=== PATIENT | female | born 1950 | race Caucasian/White ===

== ENCOUNTER → 2019-11-11 08:24 | Outpatient (BNVA) | payer MEDICARE, SELFPAY | PROVIDERS: PCP Internal Medicine; Visit Provider Orthopaedic Surgery | DX: Z76.89 Persons encountering health services in other specified circumstances (principal) ==

== ENCOUNTER 2019-11-15 07:11 | Outpatient (REF) | payer MEDICARE, SELFPAY ==
--- NOTE | 2019-11-15 08:04 | ECG_ITS ---
Test Reason : ANESTHESIA KNEE REPL Blood Pressure : / mmHG Vent. Rate : 089 BPM Atrial Rate : 089 BPM P-R Int : 110 ms QRS Dur : 072 ms QT Int : 346 ms P-R-T Axes : 045 042 030 degrees QTc Int : 420 ms Sinus rhythm with short NE Possible Right atrial enlargement Otherwise normal ECG No previous ECGs available Referred By: Krys Trujillo Electronically Signed By:JULISSA HERR MD
[2019-11-15 08:56] LABS: MANUAL DIFF FLAG NO
[2019-11-15 09:03] LABS: Basophils Percent Auto 0.2 % (0-2); Eosinophils Absolute Auto 0.2 X10*3/uL (0.0-0.4); Eosinophils Percent Auto 1.9 % (0-4); Hematocrit 40.7 % (37-47); Imm Gran Abs Auto 0.03 X10*3/uL (0.00-0.03); Imm Gran Pct Auto 0.3 % (0.0-0.4); Lymphocytes Absolute Auto 1.8 X10*3/uL (1.2-4.9); Lymphocytes Percent Auto 20.2 % (20-40); Mean Corpuscular HGB Conc 31.9 g/dl (31.0-35.0); Mean Corpuscular Hemoglobin 29.3 pg (27.0-33.0); Mean Corpuscular Volume 91.7 fL (80-98); Mean Platelet Volume 12.5 fL (9.4-12.3); Monocytes Absolute Auto 0.7 X10*3/uL (0.1-1.2); Monocytes Percent Auto 7.9 % (2-11); Neutrophils Absolute Auto 6.3 X10*3/uL (2.0-8.3); Neutrophils Percent Auto 69.5 % (45-73); Platelet Count 263 X10*3/uL (160-400); Red Blood Count 4.44 X10*6/uL (4.20-5.50); Red Cell Distribution Width 12.5 % (11.0-16.0)
[2019-11-15 09:26] LABS: Anion Gap 14 (12-20); Blood Urea Nitrogen 22 mg/dL (9-16); Calcium 9.4 mg/dL (8.4-10.2); Carbon Dioxide 30 mmol/L (22-29); Chloride 100 mmol/L (96-108); Estimated Glomerular Filt Rate > 60; Glucose Random 89 mg/dL (60-115); Potassium 3.6 mmol/l (3.3-5.1); Sodium 140 mmol/L (135-145)
== END 2019-11-15 07:12 | disposition home or self-care (01) ==
LOC: HO.LAB 07:11
PROVIDERS: PCP Internal Medicine; Visit Provider Physician Assistant
DX: Z01.810 Encounter for preprocedural cardiovascular examination (principal); Z01.812 Encounter for preprocedural laboratory examination
CPT/HCPCS: 36415; 80048; 85025; 93005

== ENCOUNTER 2019-11-29 10:26 | Outpatient (REF) | payer MEDICARE, SELFPAY | END 2019-11-29 10:27 | disposition home or self-care (01) | LOC: HO.LAB 10:26 | PROVIDERS: PCP Internal Medicine; Visit Provider Physician Assistant | DX: Z01.818 Encounter for other preprocedural examination (principal); M17.12 Unilateral primary osteoarthritis, left knee; Z01.83 Encounter for blood typing | CPT/HCPCS: 87641 ==

== ENCOUNTER 2019-12-06 10:48 | Outpatient (REF) | payer MEDICARE, SELFPAY | END 2019-12-06 10:49 | disposition home or self-care (01) | LOC: HO.LAB 10:48 | PROVIDERS: PCP Internal Medicine; Visit Provider Physician Assistant | DX: Z01.818 Encounter for other preprocedural examination (principal); M17.12 Unilateral primary osteoarthritis, left knee | CPT/HCPCS: 99212 ==

== ENCOUNTER 2019-12-11 05:59 | Inpatient (IN) | payer MEDICARE, SELFPAY ==
[2019-11-27 12:01] VITALS: BP 183/82; PULSE 92; RESP 16; O2SAT 98; BMI 33.0
--- NOTE | 2019-11-27 12:25 | P.CONAN_ITS ---
Documented by User: Marlyn Westbrook 12/10/19 13:54 HPI - Anesthesia Eval Consult details Narrative: 68yo F for L TKA PCP cleared [facility] Past Medical History Medical History Glaucoma High cholesterol HTN (hypertension) Osteoarthritis of left knee Family History Family History Father No problems noted. Mother No problems noted. Sister Colon cancer Sister No problems noted. Brother No problems noted. Brother No problems noted. Son No problems noted. Daughter No problems noted. Family history of problems with anesthesia: No Surgical History History of Problems with Anesthesia: No (Never received anesthesia) Social History Social History Are you a primary patient care provider to a significant other at home: No Do you presently have visiting nurse or other home services: No Smoking Status: Former smoker Smoking Quit Date: Second Hand Smoke Exposure: No Use of substances other than those prescribed or required for medical reasons: No Have you been hit, kicked, punched, or otherwise hurt by someone within the past year? If so, by whom?: No Spiritual Healthcare Practices: none Christian Healthcare Practices: none Cultural Healthcare Practices: none Advance Directives: No Advance Directives Information Provided: No Advance Directives on File: No Recently lost weight without trying: No Meds Allergies Allergy/AdvReac Type Severity Reaction Status Date / Time skin prep Allergy Hives Uncoded 11/27/19 13:35 Home Medications Medication Instructions Recorded Confirmed Type latanoprost 0.005 % eye drops 1 drp OPHTHALMIC (EYE) DAILY 11/04/19 12/11/19 History simvastatin 40 mg tablet 40 mg PO BEDTIME 11/04/19 11/27/19 History betaxolol [Betoptic S] 1 drp OPHTHALMIC (EYE) DAILY 11/27/19 11/27/19 History cholecalciferol (vitamin D3) 25 mcg PO DAILY 11/27/19 11/27/19 History [Vitamin D3] valsartan-hydrochlorothiazide 1 tab PO DAILY 11/27/19 11/27/19 History Exam Exam Date and Time: November 27, 2019 1225 Height,Weight and Vital Signs: Height 5 ft Weight 76.7 kg Last Vital Signs Pulse 92 11/27/19 12:01 Resp 16 11/27/19 12:01 BP 183/82 H 11/27/19 12:01 Pulse Ox 98 11/27/19 12:01 Pertinent Lab Results Pertinent Lab Results: Laboratory Tests 11/15/19 11/15/19 07:30 07:30 WBC 9.0 Hgb 13.0 Hct 40.7 Plt Count 263 Sodium 140 Potassium 3.6 Chloride 100 Carbon Dioxide 30 H BUN 22 H Creatinine 0.69 Estimated GFR > 60 Narrative Narrative: EKG 11/15/19: SR@89, short NE, ?DEIDRA Airway Mallampati Class: I TM Dist: >3cm Neck ROM: Full Loose/Missing/Broken Teeth: Yes (Molars missing) Heart: RRR Lungs: CTAB Assessment and Plan Assessment Anesthesia Assessment: Anesthesia Plan Discussed and PAT Visit Documented by User: Katya Whelan 12/11/19 07:17 [facility] Past Medical History Medical History Glaucoma High cholesterol HTN (hypertension) Osteoarthritis of left knee Family History Family History Father No problems noted. Mother No problems noted. Sister Colon cancer Sister No problems noted. Brother No problems noted. Brother No problems noted. Son No problems noted. Daughter No problems noted. Social History Social History Are you a primary patient care provider to a significant other at home: No Do you presently have visiting nurse or other home services: No Smoking Status: Former smoker Smoking Quit Date: Second Hand Smoke Exposure: No Use of substances other than those prescribed or required for medical reasons: No Have you been hit, kicked, punched, or otherwise hurt by someone within the past year? If so, by whom?: No Spiritual Healthcare Practices: none Christian Healthcare Practices: none Cultural Healthcare Practices: none Advance Directives: No Advance Directives Information Provided: No Advance Directives on File: No Recently lost weight without trying: No Meds Allergies Allergy/AdvReac Type Severity Reaction Status Date / Time skin prep Allergy Hives Uncoded 11/27/19 13:35 Home Medications Medication Instructions Recorded Confirmed Type latanoprost 0.005 % eye drops 1 drp OPHTHALMIC (EYE) DAILY 11/04/19 12/11/19 History simvastatin 40 mg tablet 40 mg PO BEDTIME 11/04/19 11/27/19 History betaxolol [Betoptic S] 1 drp OPHTHALMIC (EYE) DAILY 11/27/19 11/27/19 History cholecalciferol (vitamin D3) 25 mcg PO DAILY 11/27/19 11/27/19 History [Vitamin D3] valsartan-hydrochlorothiazide 1 tab PO DAILY 11/27/19 11/27/19 History Assessment and Plan Assessment Anesthesia Assessment: Anesthesia Plan Discussed and Chart Reviewed Final Anesthetic Review NPO: Yes ASA Class: II Final Preanesthetic Review: No Changes in Pt Med Stat, Consent Obtained/Reviewed and Anes Risks/Benef Reviewed Patient Risk: Low Procedure Risk: Intermediate Assessment/Block/Sedation in SS: Assess/Block/Sedation-SS Anesthetic Plan Anesthetic Plan: MAC: and Spinal Disposition: Standard PACU
[2019-11-27 15:04] LABS: MRSA Nasal PCR NEGATIVE (Negative); SA Nasal PCR NEGATIVE (Negative)
[2019-11-29 12:32] LABS: MANUAL DIFF FLAG NO
[2019-11-29 12:42] LABS: Basophils Percent Auto 0.3 % (0-2); Eosinophils Absolute Auto 0.1 X10*3/uL (0.0-0.4); Eosinophils Percent Auto 1.5 % (0-4); Hematocrit 43.5 % (37-47); Hemoglobin 13.8 g/dl (12.0-16.0); Imm Gran Abs Auto 0.02 X10*3/uL (0.00-0.03); Imm Gran Pct Auto 0.2 % (0.0-0.4); Lymphocytes Absolute Auto 1.7 X10*3/uL (1.2-4.9); Mean Corpuscular HGB Conc 31.7 g/dl (31.0-35.0); Mean Corpuscular Hemoglobin 28.9 pg (27.0-33.0); Mean Platelet Volume 12.7 fL (9.4-12.3); Monocytes Absolute Auto 0.6 X10*3/uL (0.1-1.2); Neutrophils Absolute Auto 6.7 X10*3/uL (2.0-8.3); Platelet Count 281 X10*3/uL (160-400); Red Blood Count 4.78 X10*6/uL (4.20-5.50); Red Cell Distribution Width 12.4 % (11.0-16.0); White Blood Count 9.2 X10*3/uL (4.8-10.8)
[2019-12-11] VITALS (13 sets, daily range): BP systolic 86–164; BP diastolic 48–83; PULSE 71–95; RESP 17–20; TEMP 36.1–36.9; O2SAT 92–100
[2019-12-11] MEDS: Gabapentin 600 MG TABLET PO (06:22)
[2019-12-11] MEDS: ceFAZolin Sodium/Dextrose,Iso 2 GM/50 ML PIGGYBACK IV ×2 (06:22→15:48)
[2019-12-11 06:56] LABS: SARS COV2 PCR INHOUSE NEGATIVE (Negative)
[2019-12-11] MEDS: Lactated Ringers 1,000 ML 100 ML IVCONT (06:57)
--- NOTE | 2019-12-11 07:20 | PC.NURSE ---
0776 time out performed. nerve block completed by Dr. Bedolla
--- NOTE | 2019-12-11 07:29 | MHC.SHP ---
Pre-Procedural Eval Section A The patient is an INPATIENT: No Changes since office visit: Yes Patient answered all questions; No Cold of Flu in the past 2 weeks, No New Medical Problems and No Changes in Medication The History & Physical has been completed within 30 days and I have reviewed it.: Yes Section B Chief Complaint: OSTEOARTHRITIS LEFT KNEE ELECTIVE ORTHOPEDIC SURG Allergies: Allergies Allergy/AdvReac Type Severity Reaction Status Date / Time skin prep Allergy Hives Uncoded 11/27/19 13:35 Plan Patient has been examined and remains a candidate for the planned procedure
--- NOTE | 2019-12-11 07:55 | P.CONAN_ITS ---
[facility] Past Medical History Medical History Glaucoma High cholesterol HTN (hypertension) Osteoarthritis of left knee Family History Family History Father No problems noted. Mother No problems noted. Sister Colon cancer Sister No problems noted. Brother No problems noted. Brother No problems noted. Son No problems noted. Daughter No problems noted. Social History Social History Are you a primary aged or disabled care worker to a significant other at home: No Do you presently have visiting nurse or other home services: No Smoking Status: Former smoker Smoking Quit Date: Second Hand Smoke Exposure: No Use of substances other than those prescribed or required for medical reasons: No Have you been hit, kicked, punched, or otherwise hurt by someone within the past year? If so, by whom?: No Spiritual Healthcare Practices: none [facility] Healthcare Practices: none Cultural Healthcare Practices: none Advance Directives: No Advance Directives Information Provided: No Advance Directives on File: No Recently lost weight without trying: No Meds Allergies Allergy/AdvReac Type Severity Reaction Status Date / Time skin prep Allergy Hives Uncoded 11/27/19 13:35 Home Medications Medication Instructions Recorded Confirmed Type latanoprost 0.005 % eye drops 1 drp OPHTHALMIC (EYE) DAILY 11/04/19 12/11/19 History simvastatin 40 mg tablet 40 mg PO BEDTIME 11/04/19 11/27/19 History betaxolol [Betoptic S] 1 drp OPHTHALMIC (EYE) DAILY 11/27/19 11/27/19 History cholecalciferol (vitamin D3) 25 mcg PO DAILY 11/27/19 11/27/19 History [Vitamin D3] valsartan-hydrochlorothiazide 1 tab PO DAILY 11/27/19 11/27/19 History Exam Exam Date and Time: December 11, 2019 0755 Height,Weight and Vital Signs: Height 5 ft Weight 76.7 kg Last Vital Signs Temp 98.1 F 12/11/19 06:24 Pulse 95 12/11/19 06:24 Resp 20 12/11/19 06:24 BP 137/83 12/11/19 06:24 Pulse Ox 98 12/11/19 06:24 Pertinent Lab Results Pertinent Lab Results: Laboratory Tests 11/27/19 11/29/19 11/29/19 12:30 11:00 11:00 WBC 9.2 RBC 4.78 Hgb 13.8 Hct 43.5 MCV 91.0 MCH 28.9 MCHC 31.7 RDW 12.4 Plt Count 281 MPV 12.7 H Immature Gran % (Auto) 0.2 Neut % (Auto) 73.0 Lymph % (Auto) 19.0 L [place] % (Auto) 6.0 Eos % (Auto) 1.5 Baso % (Auto) 0.3 Lymph # (Auto) 1.7 [place] # (Auto) 0.6 Eos # (Auto) 0.1 Baso # (Auto) 0.0 Abs Immat Gran (auto) 0.02 Absolute Neuts (auto) 6.7 Absolute Nucleated RBC 0.000 Nucleated RBC % (auto) 0.0 Nasal Screen MRSA (PCR) NEGATIVE Nasal S. aureus Screen NEGATIVE Nasal MRSA/S.aureus Interp SEE NOTE Coronavirus (PCR) COVID-19 PCR Blood Type O Positive Antibody Screen NEGATIVE 12/11/19 12/11/19 05:41 05:41 WBC RBC Hgb Hct MCV MCH MCHC RDW Plt Count MPV Immature Gran % (Auto) Neut % (Auto) Lymph % (Auto) [place] % (Auto) Eos % (Auto) Baso % (Auto) Lymph # (Auto) [place] # (Auto) Eos # (Auto) Baso # (Auto) Abs Immat Gran (auto) Absolute Neuts (auto) Absolute Nucleated RBC Nucleated RBC % (auto) Nasal Screen MRSA (PCR) Nasal S. aureus Screen Nasal MRSA/S.aureus Interp Coronavirus (PCR) NEGATIVE COVID-19 PCR Cancelled Blood Type Antibody Screen
--- NOTE | 2019-12-11 09:12 | PM.OP ---
Brief Operative Note Date of procedure: 12/11/19 Pre-op diagnosis: left knee OA Post-op diagnosis: same Procedure: left TKA Implants: Tamy triathalon Surgeon: J Carlos Hassan MD Anesthesia: regional and spinal Estimated blood loss (mL): 100 Tourniquet time (min): 0 IV fluids (mL): 900 Urine output (mL): 0 Pathology: other Condition: stable Disposition: PACU
--- NOTE | 2019-12-11 09:49 | XR_ITS ---
EXAMINATION: XR KNEE, LEFT CLINICAL INFORMATION: Knee replacement COMPARISON: Previous x-ray most recent September 2019 TECHNIQUE: 2 views of the left knee. FINDINGS: There is a new 3 component left knee replacement in satisfactory position. No fracture or dislocation is seen. There are postoperative changes to the soft tissues. XR/XR knee LT 2V IMPRESSION: Satisfactory appearance of left knee replacement.
--- NOTE | 2019-12-11 09:59 | OP_ITS ---
SURGEON: J Carlos Hassan MD INDICATIONS: This is a 69-year-old female with left knee osteoarthritis, consented to undergo knee arthroplasty. PREOPERATIVE DIAGNOSIS: Left knee osteoarthritis. POSTOPERATIVE DIAGNOSIS: Left knee osteoarthritis. PROCEDURE PERFORMED: Left total knee arthroplasty. ESTIMATED BLOOD LOSS: 100 mL. COMPLICATIONS: None. ANESTHESIA: Regional and spinal. ASSISTANTS: SPECIMENS: FLUIDS: 900. PROCEDURE IN DETAIL: The patient was brought to the operating room, prepped and draped in standard sterile fashion. Time-out was called to identify proper site, proper procedure, and proper surgeon. IV antibiotics per weight was administered. I began by making a midline incision down the retinaculum and performed a medial parapatellar arthrotomy. I resected the fat pad and performed a small medial peel. Manny's line was used to drill my intramedullary femoral guide, and my distal femoral cut was made 5 degrees of valgus. I sized a size 2 femur and made my anterior and posterior chamfer cuts protecting soft tissues and the notch at all times. I turned my attention to the tibia, removed the meniscus, and while protecting the PCL, I made my tibial cut in line with the tibial crest taking 9 mm off the lateral side. Once this was done, I trialed an extension block. I was happy with the extension. A 2 tibial base plate was provisionally placed with 2 femur, and knee was taken through range of motion. I was happy with the range and stability. The undersurface of the patella was then resurfaced, and a 29A patella was trialed. I was happy with the tracking. All instrumentation was then removed after the lug holes in the tibial canal were prepared. I then irrigated copiously, placed my femoral bone plug, and then press-fit the tibia and femur in standard fashion and then the patella. A 9 insert was trialed, and I was happy with the extension, flexion, and stability. Therefore, 9 final implant was placed. I then irrigated copiously, soaked for 2 minutes with iodine. Local TXA was applied and the wound was covered in sterile dressing. The patient was awakened from sedation, brought to recovery room in stable condition. There were no known complications. ENFORCEMENT SAFETY OFFICER: EMILI Escamilla GRAFT OR IMPLANTS: Tamy Triathlon press-fit //9CR/31A. J Carlos Hassan MD NE/MODL / [id number]
[2019-12-11] MEDS: Celecoxib 200 MG CAPSULE PO ×2 (11:35→20:12)
[2019-12-11] MEDS: oxyCODONE HCl ER 10 MG TAB.ER.12H PO ×2 (11:35→20:13)
[2019-12-11] MEDS: oxyCODONE HCl Immed Release 5 MG TABLET PO ×3 (11:35→22:44)
[2019-12-11] MEDS: Dextrose 5 % and 0.45 % NaCl 1,000 ML 80 ML IVCONT ×2 (11:36→23:52)
[2019-12-11] MEDS: Acetaminophen 325 MG TABLET 650 MG PO ×2 (12:37→18:48)
--- NOTE | 2019-12-11 12:48 | MHC.CM.PN ---
NURSE CHAIRPERSON ANESTHESIOLOGY CHANELL ELECTRONIC MEDICAL RECORD REVIEWED ALONG WITH CASE DISCUSSED WITH STAFF NURSE, MET WITH PATIENT , SHE IS OPERATIVE DAY, S/P LEFT TOTAL KNEE ARTHROPLASY . SHE REPORTED THAT SHE LIVES WITH HER , SHE IS ACTIVE, INDEPENDENT IN ALL ADLS AND MOBILITY WITHOUT THE USE OF ANY DEVICES, SHE CONTINUES TO DRIVE A CARE . PATIENT CONFIRMED PCP DR GEN WONG, AND [facility]ACY [facility] IN [facility] DISCHARGE PLAN AFTER REVIEW OF THE [facility] AGENCY LIST SHE CHOSE THE [facility] FOR HOME [facility]YSICAL THEARPY (INIATED REFERRAL TO THEM_) PATIENT INSTRUCTED T RAFA HER PCP DR ANA LUIS FOR POST HOPSITLA DISCHARGE FOLLOW UP ORTHPEDIC SURGEON FOLLOW UP INDICATED ON THE DISCHARGE INSTRUCTIONS TRANSPORTATION [facility] IN [place]
--- NOTE | 2019-12-11 13:31 | PM.IMCN ---
History of Present Illness Data of Consult Service Date: 12/11/19 Requesting physician: Krys Trujillo Primary Care Provider: Ignacio Bray MD [facility] Reason for consult: medical management, hypertension this is a 69-year-old female with a history of hypertension, dyslipidemia, glaucoma who presented for elective left total knee arthroplasty in the setting of osteoarthritis. the hospitalists were asked to see her in consultation for medical management and assistance in managing hypertension. patient reports headache otherwise has no complaints at this time. She is tolerating a diet. She has yet to get out of bed or void. Review of Systems Review of Systems: Yes all other systems are reviewed and are negative Constitutional: Constitutional: Denies chills and Denies fever(s) Cardiovascular: Cardiovascular: Denies chest pain Respiratory: Respiratory: Denies cough Gastrointestinal: Gastrointestinal: Denies abdominal pain Neurologic: Comments: Headache [facility] Medical History (Updated 12/11/19 @ 13:40 by EMILI Moore) Glaucoma High cholesterol HTN (hypertension) Osteoarthritis of left knee Functional capacity: independent ambulation Family History Father No problems noted. Mother No problems noted. Sister Colon cancer Sister No problems noted. Brother No problems noted. Brother No problems noted. Son No problems noted. Daughter No problems noted. Surgical History (Updated 12/11/19 @ 13:38 by EMILI Moore) History of total knee arthroplasty Social History (Updated 12/11/19 @ 13:39 by EMILI Moore) Are you a primary healthcare administrator to a significant other at home: No Do you presently have visiting nurse or other home services: No Alcohol intake: never Smoking Status: Former smoker Smoking Quit Date: Second Hand Smoke Exposure: No Use of substances other than those prescribed or required for medical reasons: No Currently Displaying Signs/Symptoms of Drug Intoxication Withdrawal: No Any prior treatment program specific to substance use: No Have you been hit, kicked, punched, or otherwise hurt by someone within the past year? If so, by whom?: No Do you feel safe in your current relationship?: Yes Is there a partner from a previous relationship who is making you feel unsafe now?: No Are you made to feel afraid or neglected: No Spiritual Healthcare Practices: none [employer] Healthcare Practices: none Cultural Healthcare Practices: none Advance Directives: No Advance Directives Information Provided: No Advance Directives on File: No Do you have thoughts of harming others: None Do you have a plan to hurt others: No Plan Recently lost weight without trying: No service: No Current occupational status: unemployed Meds Allergies Allergy/AdvReac Type Severity Reaction Status Date / Time skin prep Allergy Hives Uncoded 11/27/19 13:35 Home Medications Medication Instructions Recorded Confirmed Type latanoprost 0.005 % eye drops 1 drp OPHTHALMIC (EYE) DAILY 11/04/19 12/11/19 History simvastatin 40 mg tablet 40 mg PO BEDTIME 11/04/19 11/27/19 History betaxolol [Betoptic S] 1 drp OPHTHALMIC (EYE) DAILY 11/27/19 11/27/19 History cholecalciferol (vitamin D3) 25 mcg PO DAILY 11/27/19 11/27/19 History [Vitamin D3] valsartan-hydrochlorothiazide 1 tab PO DAILY 11/27/19 11/27/19 History Physical Exam Vital Signs and Narrative: Vital Signs: Last Vital Signs Temp 97.1 F 12/11/19 10:25 Pulse 83 12/11/19 10:25 Resp 17 12/11/19 10:09 BP 126/76 12/11/19 10:09 Pulse Ox 96 12/11/19 10:25 Body Mass Index 33.0 Const: Nutritional Appearance: well nourished Orientation/consciousness: patient oriented x3 HENMT: Head: Yes normocephalic and Yes atraumatic Eyes: Sclerae: sclerae normal Chest: Chest palpation & inspection: normal inspection of the chest Resp: Effort & Inspection: normal respiratory effort and no respiratory distress Auscultation: clear to auscultation bilaterally Cardio: Rate: regular rate Rhythm: regular rhythm GI: Palpation (GI): Soft to palpation and nontender Skin: General skin exam: no rashes or lesions noted Neuro: General: patient oriented x3 Cranial nerves: Yes CN's II-XII intact bilaterally and Yes Bilaterally intact EOM present Extrem: Other: left knee wrapped in the Mason bandage. No staining Results Labs Labs: Laboratory Tests 11/27/19 11/29/19 11/29/19 12:30 11:00 11:00 WBC 9.2 RBC 4.78 Hgb 13.8 Hct 43.5 MCV 91.0 MCH 28.9 MCHC 31.7 RDW 12.4 Plt Count 281 MPV 12.7 H Immature Gran % (Auto) 0.2 Neut % (Auto) 73.0 Lymph % (Auto) 19.0 L [place] % (Auto) 6.0 Eos % (Auto) 1.5 Baso % (Auto) 0.3 Lymph # (Auto) 1.7 [place] # (Auto) 0.6 Eos # (Auto) 0.1 Baso # (Auto) 0.0 Abs Immat Gran (auto) 0.02 Absolute Neuts (auto) 6.7 Absolute Nucleated RBC 0.000 Nucleated RBC % (auto) 0.0 Nasal Screen MRSA (PCR) NEGATIVE Nasal S. aureus Screen NEGATIVE Nasal MRSA/S.aureus Interp SEE NOTE Coronavirus (PCR) COVID-19 PCR Blood Type O Positive Antibody Screen NEGATIVE 12/11/19 12/11/19 05:41 05:41 WBC RBC Hgb Hct MCV MCH MCHC RDW Plt Count MPV Immature Gran % (Auto) Neut % (Auto) Lymph % (Auto) [place] % (Auto) Eos % (Auto) Baso % (Auto) Lymph # (Auto) [place] # (Auto) Eos # (Auto) Baso # (Auto) Abs Immat Gran (auto) Absolute Neuts (auto) Absolute Nucleated RBC Nucleated RBC % (auto) Nasal Screen MRSA (PCR) Nasal S. aureus Screen Nasal MRSA/S.aureus Interp Coronavirus (PCR) NEGATIVE COVID-19 PCR Cancelled Blood Type Antibody Screen Assessment and Plan (1) Osteoarthritis of left knee: Qualifiers: Osteoarthritis type: primary Qualified Code(s): M17.12 - Unilateral primary osteoarthritis, left knee Status: Acute (2) HTN (hypertension): Status: Acute this is a 69-year-old female with a history of hypertension, dyslipidemia, glaucoma admitted for elective left total knee arthroplasty s/p left total knee arthroplasty management per Orthopedic Service recommend following basic labs including CBC, BMP hypertension blood pressure controlled - continue formulary equivalent for valsartan /hydrochlorothiazide combo HLD continue statin thank you for allowing us to participate in the care of this patient. we will follow along with you this case was discussed with Dr. Baxter
--- NOTE | 2019-12-11 15:54 | PC.NURSE ---
patient refused telesiter
[2019-12-11] MEDS: ondansetron HCL 4 MG/2 ML VIAL IVPUSH (20:09)
[2019-12-11] MEDS: Docusate Sodium 100 MG CAPSULE PO (20:12)
[2019-12-11] MEDS: Atorvastatin Calcium 20 MG TABLET PO (20:12)
--- NOTE | 2019-12-11 21:46 | PC.NURSE ---
P-patient voided in the bathroom large amt of yellow urine I-bladder scanned for 281 ml E-patient denies any discomfort,will monitor,DTV#3 at 0300
--- NOTE | 2019-12-11 21:52 | PC.NURSE ---
P-patient vomited large amt of liquid in the bathroom I-assisted back to bed,hygiene provided E-feels better,Zofran was administered at 2008,will monitor
[2019-12-11] MEDS: HYDROmorphone HCl 0.5 MG/0.5 ML SYRINGE 0.25 MG IVPUSH (23:58)
[2019-12-12 03:26] VITALS: BP 148/73; PULSE 90; RESP 19; TEMP 36.7; O2SAT 97
[2019-12-12 06:15] LABS: MANUAL DIFF FLAG NO
[2019-12-12 06:19] LABS: Basophils Percent Auto 0.1 % (0-2); Hematocrit 34.4 % (37-47); Hemoglobin 11.2 g/dl (12.0-16.0); Imm Gran Abs Auto 0.05 X10*3/uL (0.00-0.03); Imm Gran Pct Auto 0.3 % (0.0-0.4); Lymphocytes Percent Auto 6.9 % (20-40); Mean Corpuscular HGB Conc 32.6 g/dl (31.0-35.0); Mean Corpuscular Hemoglobin 29.5 pg (27.0-33.0); Mean Corpuscular Volume 90.5 fL (80-98); Mean Platelet Volume 10.3 fL (9.4-12.3); Monocytes Absolute Auto 1.2 X10*3/uL (0.1-1.2); Monocytes Percent Auto 8.1 % (2-11); Neutrophils Absolute Auto 12.1 X10*3/uL (2.0-8.3); Neutrophils Percent Auto 84.6 % (45-73); Platelet Count 255 X10*3/uL (160-400); Red Cell Distribution Width 12.4 % (11.0-16.0); White Blood Count 14.3 X10*3/uL (4.8-10.8)
[2019-12-12 06:42] LABS: Anion Gap 14 (12-20); Blood Urea Nitrogen 13 mg/dL (9-16); Calcium 8.3 mg/dL (8.4-10.2); Carbon Dioxide 31 mmol/L (22-29); Chloride 95 mmol/L (96-108); Creatinine Clr Calc Pharmacy 80.9; Estimated Glomerular Filt Rate > 60; Glucose Fasting 153 mg/dL (60-99); Potassium 4.1 mmol/l (3.3-5.1); Sodium 136 mmol/L (135-145)
--- NOTE | 2019-12-12 07:16 | P.PNOP_ITS ---
Subjective Subjective Interval history: POD1 s/p Lt TKA. Patient is resting comfortably in bed. She had some nausea and vomiting last night and was given Zofran. Shortly after administration her symptoms resolved and she is feeling better this morning. She states that she has been up and out of bed to use the bathroom. Her pain is well managed. Physical Exam Vital Signs: Vital Signs: Vital Signs Temp Pulse Resp BP Pulse Ox 12/12/19 03:26 98.1 F 90 19 148/73 H 97 12/11/19 23:10 97.6 F 79 19 142/69 H 96 12/11/19 19:25 97.6 F 93 19 164/81 H 97 12/11/19 15:20 97.8 F 71 18 122/65 94 12/11/19 11:13 97.0 F 90 125/60 92 12/11/19 10:25 97.1 F 83 96 12/11/19 10:09 85 17 126/76 100 12/11/19 09:54 83 17 113/60 99 12/11/19 09:48 84 18 107/65 92 12/11/19 09:43 83 17 119/61 98 12/11/19 09:38 83 17 113/63 98 12/11/19 09:33 91 17 91/53 L 98 12/11/19 09:28 98.4 F 90 18 86/48 L 97 Body Mass Index 33.0 Const: General: cooperative, healthy appearing and no acute distress Resp: Effort & Inspection: normal respiratory effort and able to speak in complete sentences Cardio: Rate: regular rate Peripheral pulses: Peripheral pulses 2+ throughout GI: Inspection: Yes normal to inspection Palpation (GI): Soft to palpation Skin: General skin exam: no rashes or lesions noted Extrem: Other: Dressing is clean dry and intact. NVI. No ecchymosis or redness. Progress Note: A&P Assessment and plan (1) Status post left knee replacement: Status: Acute Assessment and Plan: Continue pain mgmnt Begin ASA today for dvt ppx begin PT for LT TKA Dispo planning-Pending PT eval, pain mgmnt Fall Risk Details Current Medications: Current Medications Generic Name Dose Route Start Last Admin Trade Name Freq PRN Reason Stop Dose Admin Acetaminophen 650 mg 12/11/19 11:13 12/11/19 18:48 Acetaminophen 325 Mg Tablet PO 650 mg Q6H PRN Administration Pain, Mild (Pain Scale 1-3) Atorvastatin Calcium 20 mg 12/11/19 21:00 12/11/19 20:12 Atorvastatin Calcium 20 Mg Tablet PO 20 mg BEDTIME ARTURO Administration Celecoxib 200 mg 12/11/19 21:00 12/11/19 20:12 Celecoxib 200 Mg Capsule PO 200 mg BID ARTURO Administration Docusate Sodium 100 mg 12/11/19 21:00 12/11/19 20:12 Docusate Sodium 100 Mg Capsule PO 100 mg BID ARTURO Administration Hydrochlorothiazide 12.5 mg 12/12/19 09:00 Hydrochlorothiazide 12.5 Mg Tablet PO DAILY ARTURO Hydromorphone HCl 0.25 mg 12/11/19 11:13 12/11/19 23:58 Hydromorphone Hcl 0.5 Mg/0.5 Ml Syringe IVPUSH 0.25 mg Q4H PRN Administration Pain, Severe (Pain Scale 7-10) Dextrose/Sodium Chloride 1,000 mls @ 80 mls/hr 12/11/19 11:13 12/11/19 23:52 D51/2ns IVCONT 80 mls/hr .[id number] ARTURO Administration Latanoprost 1 drop 12/12/19 09:00 Latanoprost 0.005 % Ophth [place] 2.5 Ml Drops EYE-BOTH DAILY [facility] Naloxone HCl 0.2 mg 12/11/19 11:13 Naloxone Hcl 0.4 Mg/Ml Vial IVPUSH Q2M PRN Excessive sedation or RR < 8 Non-Formulary Medication 1 drop 12/12/19 09:00 Betaxolol [Betoptic S] EYE-BOTH DAILY [facility] Ondansetron HCl 4 mg 12/11/19 11:13 12/11/19 20:09 Ondansetron Hcl 4 Mg/2 Ml Vial IVPUSH 4 mg Q8H PRN Administration Nausea and Vomiting Oxycodone HCl 5 mg 12/11/19 11:13 12/11/19 22:44 Oxycodone Hcl Immed Release 5 Mg Tablet PO 5 mg Q4H PRN Administration Pain, Moderate (Pain Scale 4-6 Oxycodone HCl 10 mg 12/11/19 21:00 12/11/19 20:13 Oxycodone Hcl Er 10 Mg Tab.Er.12h PO 10 mg BID ARTURO Administration Sodium Chloride 3 ml 12/11/19 16:00 12/12/19 01:14 0.9 % Sodium Chloride Flush 3 Ml Syringe IVFLUSH Not Given QSHIFT ARTURO Valsartan 80 mg 12/12/19 09:00 Valsartan 80 Mg Tablet PO DAILY ARTURO Time Spent With Patient Time: Total time spent is greater than 50% in coordination of care (as documented) at patient's floor/unit and/or counseling patient: Time with patient: 15 - 24 minutes
[2019-12-12 08:00] VITALS: BP 138/68; PULSE 77; RESP 18; TEMP 36.6; O2SAT 95
[2019-12-12 08:43] LABS: MANUAL DIFF FLAG NO
[2019-12-12 08:52] LABS: Basophils Percent Auto 0.1 % (0-2); Hematocrit 34.6 % (37-47); Hemoglobin 11.3 g/dl (12.0-16.0); Imm Gran Abs Auto 0.05 X10*3/uL (0.00-0.03); Imm Gran Pct Auto 0.3 % (0.0-0.4); Lymphocytes Absolute Auto 1.1 X10*3/uL (1.2-4.9); Lymphocytes Percent Auto 7.4 % (20-40); Mean Corpuscular HGB Conc 32.7 g/dl (31.0-35.0); Mean Corpuscular Hemoglobin 29.4 pg (27.0-33.0); Mean Corpuscular Volume 89.9 fL (80-98); Monocytes Absolute Auto 1.3 X10*3/uL (0.1-1.2); Monocytes Percent Auto 8.8 % (2-11); Neutrophils Percent Auto 83.4 % (45-73); Platelet Count 240 X10*3/uL (160-400); Red Blood Count 3.85 X10*6/uL (4.20-5.50); Red Cell Distribution Width 12.4 % (11.0-16.0); White Blood Count 14.4 X10*3/uL (4.8-10.8)
[2019-12-12 09:29] LABS: Anion Gap 12 (12-20); Blood Urea Nitrogen 12 mg/dL (9-16); Calcium 8.5 mg/dL (8.4-10.2); Carbon Dioxide 33 mmol/L (22-29); Chloride 96 mmol/L (96-108); Creatinine Clr Calc Pharmacy 82.4; Estimated Glomerular Filt Rate > 60; Glucose Random 136 mg/dL (60-115); Potassium 4.3 mmol/l (3.3-5.1); Sodium 137 mmol/L (135-145)
[2019-12-12] MEDS: Aspirin 325 MG TABLET PO (09:47)
[2019-12-12] MEDS: Docusate Sodium 100 MG CAPSULE PO (09:48)
[2019-12-12] MEDS: oxyCODONE HCl ER 10 MG TAB.ER.12H PO (09:48)
[2019-12-12] MEDS: Valsartan 80 MG TABLET PO (09:48)
[2019-12-12] MEDS: Latanoprost 0.005 % Ophth Sol 2.5 ML DROPS 1 DROP EYE-BOTH (09:49)
[2019-12-12] MEDS: hydroCHLOROthiazide 12.5 MG TABLET PO (09:50)
[2019-12-12 11:50] VITALS: BP 135/55; PULSE 78; RESP 18; TEMP 36.6; O2SAT 95
[2019-12-12] MEDS: ondansetron HCL 4 MG/2 ML VIAL IVPUSH (12:00)
[2019-12-12] MEDS: Dextrose 5 % and 0.45 % NaCl 1,000 ML 80 ML IVCONT (12:04)
--- NOTE | 2019-12-12 12:55 | HO.POSTANES ---
Post Anesthesia Evaluation Post Anesthesia Evaluation Vital Signs: Vital Signs Temp Pulse Resp BP Pulse Ox 12/12/19 11:50 97.9 F 78 18 135/55 L 95 12/12/19 08:00 97.8 F 77 18 138/68 95 12/12/19 03:26 98.1 F 90 19 148/73 H 97 Anesthesia: Spinal Mental Status: Awake Pain Control: Satisfactory Nausea/Vomiting: None Hydration: Adequate Anesthesia-Related Issues: No Anes. Related Issues
[2019-12-12 13:26] VITALS: BP 153/76; PULSE 85; RESP 20; O2SAT 96
--- NOTE | 2019-12-12 13:37 | P.PNIM_ITS ---
Subjective Subjective Interval History: patient seen and examined at bedside patient reporting some knee pain Physical Exam Vital Signs: Vital Signs: Vital Signs Temp Pulse Resp BP Pulse Ox 12/12/19 13:26 85 20 153/76 H 96 12/12/19 11:50 97.9 F 78 18 135/55 L 95 12/12/19 08:00 97.8 F 77 18 138/68 95 12/12/19 03:26 98.1 F 90 19 148/73 H 97 12/11/19 23:10 97.6 F 79 19 142/69 H 96 12/11/19 19:25 97.6 F 93 19 164/81 H 97 12/11/19 15:20 97.8 F 71 18 122/65 94 Body Mass Index 33.0 Const: Nutritional Appearance: well nourished Orientation/consciousness: patient oriented x3 HENMT: Head: Yes normocephalic and Yes atraumatic Eyes: Sclerae: sclerae normal Chest: Chest palpation & inspection: normal inspection of the chest Resp: Effort & Inspection: normal respiratory effort and no respiratory distress Auscultation: clear to auscultation bilaterally Cardio: Rate: regular rate Rhythm: regular rhythm GI: Palpation (GI): Soft to palpation and nontender Skin: General skin exam: no rashes or lesions noted Neuro: General: patient oriented x3 Cranial nerves: Yes CN's II-XII intact bilaterally and Yes Bilaterally intact EOM present Extrem: Other: left knee wrapped in the Mason bandage. No staining Objective Data Current Medications Generic Name Dose Route Start Last Admin Trade Name Freq PRN Reason Stop Dose Admin Acetaminophen 650 mg 12/11/19 11:13 12/11/19 18:48 Acetaminophen 325 Mg Tablet PO 650 mg Q6H PRN Administration Pain, Mild (Pain Scale 1-3) Aspirin 325 mg 12/12/19 10:00 12/12/19 09:47 Aspirin 325 Mg Tablet PO 325 mg BID ARTURO Administration Atorvastatin Calcium 20 mg 12/11/19 21:00 12/11/19 20:12 Atorvastatin Calcium 20 Mg Tablet PO 20 mg BEDTIME ARTURO Administration Celecoxib 200 mg 12/11/19 21:00 12/12/19 09:58 Celecoxib 200 Mg Capsule PO Not Given BID ARTURO Docusate Sodium 100 mg 12/11/19 21:00 12/12/19 09:48 Docusate Sodium 100 Mg Capsule PO 100 mg BID ARTURO Administration Hydrochlorothiazide 12.5 mg 12/12/19 09:00 12/12/19 09:50 Hydrochlorothiazide 12.5 Mg Tablet PO 12.5 mg DAILY ARTURO Administration Hydromorphone HCl 0.25 mg 12/11/19 11:13 12/11/19 23:58 Hydromorphone Hcl 0.5 Mg/0.5 Ml Syringe IVPUSH 0.25 mg Q4H PRN Administration Pain, Severe (Pain Scale 7-10) Dextrose/Sodium Chloride 1,000 mls @ 80 mls/hr 12/11/19 11:13 12/12/19 12:04 D51/2ns IVCONT 80 mls/hr .[id number] ARTURO Administration Latanoprost 1 drop 12/12/19 09:00 12/12/19 09:49 Latanoprost 0.005 % Ophth [place] 2.5 Ml Drops EYE-BOTH 1 drop DAILY ARTURO Administration Naloxone HCl 0.2 mg 12/11/19 11:13 Naloxone Hcl 0.4 Mg/Ml Vial IVPUSH Q2M PRN Excessive sedation or RR < 8 Non-Formulary Medication 1 drop 12/12/19 09:00 Betaxolol [Betoptic S] EYE-BOTH DAILY [facility] Ondansetron HCl 4 mg 12/11/19 11:13 12/12/19 12:00 Ondansetron Hcl 4 Mg/2 Ml Vial IVPUSH 4 mg Q8H PRN Administration Nausea and Vomiting Oxycodone HCl 5 mg 12/11/19 11:13 12/11/19 22:44 Oxycodone Hcl Immed Release 5 Mg Tablet PO 5 mg Q4H PRN Administration Pain, Moderate (Pain Scale 4-6 Oxycodone HCl 10 mg 12/11/19 21:00 12/12/19 09:48 Oxycodone Hcl Er 10 Mg Tab.Er.12h PO 10 mg BID ARTURO Administration Sodium Chloride 3 ml 12/11/19 16:00 12/12/19 09:49 0.9 % Sodium Chloride Flush 3 Ml Syringe IVFLUSH Not Given QSHIFT ARTURO Valsartan 80 mg 12/12/19 09:00 12/12/19 09:48 Valsartan 80 Mg Tablet PO 80 mg DAILY ARTURO Administration Labs CBC & Chem 7: 12/12/19 08:02 12/12/19 08:02 Labs: Laboratory Results - last 24 hr 12/12/19 12/12/19 12/12/19 06:01 06:01 08:02 WBC 14.3 H 14.4 H RBC 3.80 L D 3.85 L Hgb 11.2 L 11.3 L Hct 34.4 L D 34.6 L MCV 90.5 89.9 MCH 29.5 29.4 MCHC 32.6 32.7 RDW 12.4 12.4 Plt Count 255 240 MPV 10.3 12.0 Immature Gran % (Auto) 0.3 0.3 Neut % (Auto) 84.6 H 83.4 H Lymph % (Auto) 6.9 L 7.4 L Branch % (Auto) 8.1 8.8 Eos % (Auto) 0.0 0.0 Baso % (Auto) 0.1 0.1 Lymph # (Auto) 1.0 L 1.1 L Branch # (Auto) 1.2 1.3 H Eos # (Auto) 0.0 0.0 Baso # (Auto) 0.0 0.0 Abs Immat Gran (auto) 0.05 H 0.05 H Absolute Neuts (auto) 12.1 H 12.0 H Absolute Nucleated RBC 0.000 0.000 Nucleated RBC % (auto) 0.0 0.0 Sodium 136 Potassium 4.1 Chloride 95 L Carbon Dioxide 31 H Anion Gap 14 BUN 13 Creatinine 0.60 Estim Creat Clear Calc 80.9 Estimated GFR > 60 Random Glucose Fasting Glucose 153 H Calcium 8.3 L 12/12/19 08:02 WBC RBC Hgb Hct MCV MCH MCHC RDW Plt Count MPV Immature Gran % (Auto) Neut % (Auto) Lymph % (Auto) Branch % (Auto) Eos % (Auto) Baso % (Auto) Lymph # (Auto) Branch # (Auto) Eos # (Auto) Baso # (Auto) Abs Immat Gran (auto) Absolute Neuts (auto) Absolute Nucleated RBC Nucleated RBC % (auto) Sodium 137 Potassium 4.3 Chloride 96 Carbon Dioxide 33 H Anion Gap 12 BUN 12 Creatinine 0.59 Estim Creat Clear Calc 82.4 Estimated GFR > 60 Random Glucose 136 H D Fasting Glucose Calcium 8.5 Assessment and Plan (1) Osteoarthritis of left knee: Status: Acute (2) HTN (hypertension): Status: Acute Assessment and Plan: this is a 69-year-old female with a history of hypertension, dyslipidemia, gl aucoma admitted for elective left total knee arthroplasty S/p left total knee arthroplasty management per Orthopedic Service hypertension blood pressure controlled - continue valsartan and hydrochlorothiazide HLD continue statin DVT prophylaxis on Venodyne per Ortho
[2019-12-12 15:14] VITALS: BP 153/81; PULSE 80; RESP 18; TEMP 36.2; O2SAT 97
[2019-12-12] MEDS: Scopolamine 1.5 MG PATCH.TD.3 EAR-BEHIND (16:16)
--- NOTE | 2020-01-01 10:00 | P.DS_ITS ---
DS: Providers Provider Date of admission: 12/11/19 05:59 Primary care physician: Ignacio Bray MD Consults: 12/11/19 11:13 Consult to Hospitalist Routine Consulting Provider: Hospitalist Reason for consultation: Medical Mgt HTN DS: Diagnosis Discharge Diagnosis (1) Osteoarthritis of left knee: Problem details: This is a 69-year-old female who presented to the office with left knee pain. She was found have osteoarthritis of the left knee. She failed all conservative measures and continued to have difficulty with daily activities therefore she accepted to move forward with a left total knee arthroplasty. (2) HTN (hypertension): (3) Status post left knee replacement: Status: Acute DS: Medications Discharge Medications Home Medications: Home Medications Medication Instructions Recorded Confirmed latanoprost 0.005 % eye drops 1 drp OPHTHALMIC (EYE) DAILY 11/04/19 12/11/19 simvastatin 40 mg tablet 40 mg PO BEDTIME 11/04/19 11/27/19 Betoptic S 1 drp OPHTHALMIC (EYE) DAILY 11/27/19 11/27/19 cholecalciferol (vitamin D3) 25 mcg PO DAILY 11/27/19 11/27/19 [Vitamin D3] valsartan-hydrochlorothiazide 1 tab PO DAILY 11/27/19 11/27/19 Previous Rx's Medication Instructions Recorded acetaminophen 650 mg PO Q6H PRN 30 Days #240 tab 12/12/19 aspirin 325 mg PO BID 14 Days #28 tab 12/12/19 docusate sodium 100 mg PO BID 30 Days #60 cap 12/12/19 scopolamine base [Transderm-Scop] 1.5 mg EAR-BEHIND Q72H 6 Days #4 ea 12/12/19 oxycodone 5 mg tablet 5 mg PO Q4H PRN 7 Days #42 tab 12/20/19 DS: Summary Hospital Course Hospital Course: Ms. Aponte underwent a successful left total knee arthroplasty she was transferred to PACU then to the floor where she recovered. During her stay her vitals were stable afebrile at 97.1 labs unremarkable hemoglobin 11.3 hematocrit 34.6. Postop day 1 she was started on aspirin 325 mg p.o. b.i.d. for DVT prophylaxis and she received physical therapy services twice a day. Prior to discharge her Aquacel dressing was changed incision clean dry and intact oxygen applied and plan is to be discharged home with VNA services. Time Spent with Patient Time attestation: Total time spent providing and/or coordinating discharge services: Physical Exam Vital Signs: Vital Signs: Last Vital Signs Temp 97.1 F 12/12/19 15:14 Pulse 80 12/12/19 15:14 Resp 18 12/12/19 15:14 BP 153/81 H 12/12/19 15:14 Pulse Ox 97 12/12/19 15:14 Body Mass Index 33.0 Const: General: cooperative, healthy appearing and no acute distress Resp: Effort & Inspection: normal respiratory effort and able to speak in complete sentences Cardio: Rate: regular rate Peripheral pulses: Peripheral pulses 2+ throughout GI: Inspection: Yes normal to inspection Palpation (GI): Soft to palpation Skin: General skin exam: no rashes or lesions noted Extrem: Other: Left knee incision clean dry and intact. Nany intact. No erythema or drainage. Calf supple nontender. DS: Data Data Completed and Pending Completed studies during hospitalization [Text1]: Pending at discharge 12/11/19 08:52 Surgical [PTH] Routine Procedures Replacement of Left Knee Joint with Synthetic Substitute, Uncemented, Open Approach (12/11/19) Labs on day of discharge: 11/27/19 12:30 MRSA Nasal Screen Routine 11/29/19 11:00 Type and Screen Routine Complete Blood Count Auto Diff Routine 12/11/19 05:40 Gabapentin [Neurontin] 600 mg PO PREOP ONE ceFAZolin Sodium/Dextrose,Iso [Ancef] 2 gm in 50 ml IV PREOP 12/11/19 05:40 Providone-Iodine Solution 5% nasal swab .Both Nares x2 pre-op 12/11/19 05:41 SARS COV2 PCR INHOUSE Stat 12/11/19 05:45 Lactated Ringers [Lr] 1,000 ml IVCONT 100 mls/hr 12/11/19 06:21 Gabapentin [Neurontin] 300 mg .ROUTE .STK-MED ONE ceFAZolin Sodium/Dextrose,Iso [Ancef] 2 gm in 50 ml .ROUTE As directed 12/11/19 06:51 Midazolam HCl/PF [Versed] 2 mg IVPUSH .STK-MED ONE dexAMETHasone sod phosphate [Decadron] 4 mg .ROUTE .STK-MED ONE fentaNYL citrate/PF [Sublimaze] 50 mcg .ROUTE .STK-MED ONE ondansetron HCL [Zofran] 4 mg .ROUTE .STK-MED ONE propofoL [Diprivan] 200 mg IVPUSH .K-MED ONE 12/11/19 06:53 Bupivacaine MPF 0.5 % [Sensorcaine MPF 0.5% 30 ML] 30 ml .ROUTE .STK-MED ONE 12/11/19 06:55 Tranexamic Acid [Cyklokapron] 1,000 mg .ROUTE .STK-MED ONE 12/11/19 08:01 ePHEDrine sulfate 50 mg .ROUTE .[facility] ONE 12/11/19 08:04 Acetaminophen [Tylenol] 650 mg PO ONCE PRN fentaNYL citrate/PF [Sublimaze] 50 mcg IVPUSH Q5M PRN ondansetron HCL [Zofran] 4 mg IVPUSH ONCE PRN oxyCODONE HCl Immed Release [Roxicodone] 5 mg PO ONCE PRN 12/11/19 08:22 propofoL [Diprivan] 200 mg IVPUSH .[facility] ONE 12/11/19 08:50 Phenylephrine HCL 1,000 mcg IVPUSH .[facility] ONE 12/11/19 08:52 Surgical [PTH] Routine 12/11/19 08:54 Tranexamic Acid [Cyklokapron] 1,000 mg .ROUTE .[facility] ONE 12/11/19 09:27 Transfer Order Routine 12/11/19 09:49 XR knee LT 2V Stat 12/11/19 11:13 Acetaminophen [Tylenol] 650 mg PO Q6H PRN Dextrose 5 % and 0.45 % NaCl [D51/2Ns] 1,000 ml IVCONT 80 mls/hr HYDROmorphone HCl [Dilaudid] 0.25 mg IVPUSH Q4H PRN Naloxone HCl [Narcan] 0.2 mg IVPUSH Q2M PRN ondansetron HCL [Zofran] 4 mg IVPUSH Q8H PRN oxyCODONE HCl Immed Release [Roxicodone] 5 mg PO Q4H PRN 12/11/19 11:13 Apply ice pack .as needed Compression Therapy QSHIFT Incentive Spirometry Q1HR WHILE AWAKE Oxygen administration Nasal Cannula 2 lpm Straight Urinary Catheterization NEEDED Vital Signs Q4HR Physical Therapy Eval & Treat BID 12/11/19 16:00 0.9 % Sodium Chloride Flush [NS Flush] 3 ml IVFLUSH QSHIFT ceFAZolin Sodium/Dextrose,Iso [Ancef] 2 gm in 50 ml IV POSTOP ceFAZolin Sodium/Dextrose,Iso [Ancef] 2 gm in 50 ml IV POSTOP 12/11/19 21:00 Atorvastatin Calcium [Lipitor] 20 mg PO BEDTIME Celecoxib [CeleBREX] 200 mg PO BID Docusate Sodium [Colace] 100 mg PO BID oxyCODONE HCl ER [OxyCONTIN] 10 mg PO BID 12/12/19 06:01 Basic Metabolic Panel Fasting DAILY@0600 Complete Blood Count Auto Diff DAILY@0600 12/12/19 08:02 Basic Metabolic Panel Routine Complete Blood Count Auto Diff Routine 12/12/19 09:00 Latanoprost 0.005 % Ophth Chelsea [Xalatan 0.005 % Oph Chelsea] 1 drop EYE-BOTH DAILY Valsartan [Diovan] 80 mg PO DAILY betaxolol [Betoptic S] 1 drop EYE-BOTH DAILY hydroCHLOROthiazide [Microzide] 12.5 mg PO DAILY 12/12/19 10:00 Aspirin 325 mg PO BID 12/12/19 16:00 Scopolamine [Transderm-Scop] 1.5 mg EAR-BEHIND Q72H Laboratory Last Values WBC 14.4 X10*3/uL (4.8-10.8) H 12/12/19 08:02 RBC 3.85 X10*6/uL (4.20-5.50) L 12/12/19 08:02 Hgb 11.3 g/dl (12.0-16.0) L 12/12/19 08:02 Hct 34.6 % (37-47) L 12/12/19 08:02 MCV 89.9 fL (80-98) 12/12/19 08:02 MCH 29.4 pg (27.0-33.0) 12/12/19 08:02 MCHC 32.7 g/dl (31.0-35.0) 12/12/19 08:02 RDW 12.4 % (11.0-16.0) 12/12/19 08:02 Plt Count 240 X10*3/uL (160-400) 12/12/19 08:02 MPV 12.0 fL (9.4-12.3) 12/12/19 08:02 Immature Gran % (Auto) 0.3 % (0.0-0.4) 12/12/19 08:02 Neut % (Auto) 83.4 % (45-73) H 12/12/19 08:02 Lymph % (Auto) 7.4 % (20-40) L 12/12/19 08:02 [place] % (Auto) 8.8 % (2-11) 12/12/19 08:02 Eos % (Auto) 0.0 % (0-4) 12/12/19 08:02 Baso % (Auto) 0.1 % (0-2) 12/12/19 08:02 Lymph # (Auto) 1.1 X10*3/uL (1.2-4.9) L 12/12/19 08:02 [place] # (Auto) 1.3 X10*3/uL (0.1-1.2) H 12/12/19 08:02 Eos # (Auto) 0.0 X10*3/uL (0.0-0.4) 12/12/19 08:02 Baso # (Auto) 0.0 X10*3/uL (0.0-0.2) 12/12/19 08:02 Abs Immat Gran (auto) 0.05 X10*3/uL (0.00-0.03) H 12/12/19 08:02 Absolute Neuts (auto) 12.0 X10*3/uL (2.0-8.3) H 12/12/19 08:02 Absolute Nucleated RBC 0.000 X10*3/uL (0.0-0.012) 12/12/19 08:02 Nucleated RBC % (auto) 0.0 /100WBC (0.0-0.2) 12/12/19 08:02 Sodium 137 mmol/L (135-145) 12/12/19 08:02 Potassium 4.3 mmol/l (3.3-5.1) 12/12/19 08:02 Chloride 96 mmol/L (96-108) 12/12/19 08:02 Carbon Dioxide 33 mmol/L (22-29) H 12/12/19 08:02 Anion Gap 12 (12-20) 12/12/19 08:02 BUN 12 mg/dL (9-16) 12/12/19 08:02 Creatinine 0.59 mg/dL (0.5-1.4) 12/12/19 08:02 Estim Creat Clear Calc 82.4 12/12/19 08:02 Estimated GFR > 60 12/12/19 08:02 Random Glucose 136 mg/dL (60-115) H D 12/12/19 08:02 Fasting Glucose 153 mg/dL (60-99) H 12/12/19 06:01 Calcium 8.5 mg/dL (8.4-10.2) 12/12/19 08:02 Nasal Screen MRSA (PCR) NEGATIVE (Negative) 11/27/19 12:30 Nasal S. aureus Screen NEGATIVE (Negative) 11/27/19 12:30 Nasal MRSA/S.aureus Interp SEE NOTE 11/27/19 12:30 Coronavirus (PCR) NEGATIVE (Negative) 12/11/19 05:41 COVID-19 PCR Cancelled 12/11/19 05:41 Blood Type O Positive 11/29/19 11:00 Antibody Screen NEGATIVE 11/29/19 11:00 Discharge Plan Discharge Patient Disposition: Home Health Service Referrals: [facility] [Outside] Krys Trujillo PA-C [Physician Barrel Drainer] - (2 weeks post op) Discharge Medications: New acetaminophen 325 mg Tablet 650 mg PO Q6H PRN (Reason: Pain, Mild (Pain Scale 1-3)) 30 Days Qty: 240 RF: 0 aspirin 325 mg Tablet 325 mg PO BID 14 Days Qty: 28 RF: 0 docusate sodium 100 mg Capsule 100 mg PO BID 30 Days Qty: 60 RF: 0 scopolamine base [Transderm-Scop] 1 mg over 3 days Patch 3 Day 1.5 mg EAR-BEHIND Q72H 6 Days Qty: 4 RF: 0 Continued valsartan-hydrochlorothiazide 80-12.5 mg tablet 1 tab PO DAILY RF: 0 Betoptic S 0.25 % Drops,Suspension 1 drp ophthalmic (eye) DAILY RF: 0 cholecalciferol (vitamin D3) [Vitamin D3] 25 mcg (1,000 unit) Capsule 25 mcg PO DAILY RF: 0 latanoprost 0.005 % drops 1 drp ophthalmic (eye) DAILY RF: 0 simvastatin 40 mg tablet 40 mg PO BEDTIME RF: 0 No Action oxycodone 5 mg tablet 5 mg PO Q4H PRN (Reason: Pain, Moderate (Pain Scale 4-6) 7 Days Qty: 42 RF: 0 Discharge Orders: Discharge Order (Routine); Ordered 12/12/19 Ordered By: Krys Trujillo Diet: regular diet Activity on Discharge: Use cane or walker Discharge Date/Time: 12/12/19 16:59 Activity Restrictions/Additional Instructions: * Physical Therapy for ROM 0-120, quad strength, gait training . Use walker for ambulation * Limit stair climbing, No shower, No tub bath, No driving * Continue anticoagulant * Keep Aquacel dressing clean, dry and intact. * Follow up with orthopedics in 2 weeks Visit Report Forms: Patient Portal Discharge page Care Plan Goals: Restore function of left knee Health Concerns: none Plan of Treatment: Physical Therapy Pain management DVT prophylaxis
== END 2019-12-12 16:59 | disposition home health service (06) | DRG 470 ==
LOC: HO.SSSA 07:02 → HO.S3 09:56
PROVIDERS: Internal Medicine; Nurse Practitioner; Physician Assistant; Admitting Provider Orthopaedic Surgery; PCP Internal Medicine; Visit Provider Orthopaedic Surgery
PROC: 0SRD0JA Replacement of Left Knee Joint with Synthetic Substitute, Uncemented, Open Approach (ICD-10-PCS; CPT 27447; principal; 2019-12-11 07:30)
DX: M17.12 Unilateral primary osteoarthritis, left knee (principal); E78.00 Pure hypercholesterolemia, unspecified; Z20.828 Contact with and (suspected) exposure to other viral communicable diseases; I10 Essential (primary) hypertension; Z79.899 Other long term (current) drug therapy
CPT/HCPCS: 36415; 73560; 80048; 85025; 86850; 86900; 86901; 87640; 88305; 88311; 97110; 97116; 97161; C1776; J0690; J1100; J1170; J2250; J2370; J2405; J3010; U0003

== ENCOUNTER → 2019-12-27 13:05 | Outpatient (BNVA) | payer MEDICARE, SELFPAY | PROVIDERS: PCP Internal Medicine; Visit Provider Physician Assistant | DX: Z47.1 Aftercare following joint replacement surgery (principal); Z48.02 Encounter for removal of sutures; Z96.652 Presence of left artificial knee joint | CPT/HCPCS: 99212 ==

== ENCOUNTER → 2020-01-24 09:51 | Outpatient (BNVA) | payer MEDICARE, SELFPAY | PROVIDERS: PCP Internal Medicine; Visit Provider Orthopaedic Surgery | DX: Z47.1 Aftercare following joint replacement surgery (principal); Z96.652 Presence of left artificial knee joint | CPT/HCPCS: 99212 ==

== ENCOUNTER 2020-03-05 09:05 | Outpatient (REF) | payer MEDICARE, SELFPAY ==
--- NOTE | 2020-03-05 09:11 | XR_ITS ---
EXAMINATION: XR KNEE, BILATERAL XR KNEE, LEFT CLINICAL INFORMATION: Pain COMPARISON: 12/11/2019 TECHNIQUE: AP standing view of both knees. Lateral and sunrise views of the left knee. FINDINGS: Left knee: There is a total left knee arthroplasty. The distal femoral component articulates appropriately with the tibial plateau and patellar components. No periprosthetic lucency or fracture. The soft tissues show no suspicious abnormality. Right knee: On this single view there is no fracture or subluxation. Moderate to severe medial compartment joint space narrowing with marginal osteophytes. XR/XR knee LT 2V IMPRESSION: Total left knee arthroplasty in typical positioning and alignment.
--- NOTE | 2020-03-05 09:11 | XR_ITS ---
EXAMINATION: XR KNEE, BILATERAL XR KNEE, LEFT CLINICAL INFORMATION: Pain COMPARISON: 12/11/2019 TECHNIQUE: AP standing view of both knees. Lateral and sunrise views of the left knee. FINDINGS: Left knee: There is a total left knee arthroplasty. The distal femoral component articulates appropriately with the tibial plateau and patellar components. No periprosthetic lucency or fracture. The soft tissues show no suspicious abnormality. Right knee: On this single view there is no fracture or subluxation. Moderate to severe medial compartment joint space narrowing with marginal osteophytes. XR/XR knee standing BI IMPRESSION: Total left knee arthroplasty in typical positioning and alignment.
== END 2020-03-05 09:06 | disposition home or self-care (01) ==
LOC: HO.HOSX 09:05
PROVIDERS: Visit Provider Orthopaedic Surgery
DX: M25.562 Pain in left knee (principal); E78.00 Pure hypercholesterolemia, unspecified; I10 Essential (primary) hypertension; Z87.891 Personal history of nicotine dependence; Z96.652 Presence of left artificial knee joint
CPT/HCPCS: 73560; 73565; 99212

== ENCOUNTER 2020-03-06 08:00 | Outpatient (RCR) | payer MEDICARE, SELFPAY ==
--- NOTE | 2020-01-21 11:58 | MHC.PT.OD ---
[facility] [place] Office [place] Office [place] Office [address] Chas Saldivar [address] [phone] F: [phone] F: [phone] F: [phone] F: [phone] Physical Therapy Daily Note Diagnosis: Presence of left artificial knee joint Z96.652 referred [address] PT from [facility]geons date of script 12/27/2019 signed by Maday Trujillo PA-C. Dr. Hassan surgeon Date of Surgery: 12/11/2019 Date of Evaluation: 01/14/20 Date of Treatment: 01/21/20 Treatments to Date: 4 Cancellations to Date: No Shows to Date: 0 Authorized Visits: 60 Insurance End Date: Precautions/ Contraindications:L TKA Dr. Hassan surgeon HX HTN, high cholesterol, glaucoma Subjective: I do what I can. Im trying Its not bending. Pt verbalizes forgot to take her pain medication prior to session; reports has been forgetful/inconsistent with use. Pain Score and Location: 7 L knee Objective Flowsheet: Tests & Measures Stated did not take pain meds prior to appt; very sore overall today Exercises Completed post mat and CKC activiity pt placed on upright bike with one click up on seat 6 inch step utiilized to aide; CGA pt on/off bike due to only having upright bike vs recumbent in this office Pt unable to make full revolution backward or fwd- despite encouragement to trial bkwd gently Pt near full ability to make it around backwards- improved tolerance today from 5 minutes to 10 minutes on bike today Pt encouraged to ask to see if her son can move her stationary bike up from the basement She reported I go down the stairs backwards. Completed step-up/step-down with use of rail to aide in sequencing/tolerance for stairs. Pt educated/encouraged to avoid going down stairs backwards- in previous conversation she stated she her son would be able move the bike upstairs for her-asked her - I informed that her that I think this is a good idea to risk of fall at home. She reported was unable to make a full revolution at home, but did complete five minutes of rocking. Supine for isometric quad set without towel roll x 5 sec hold x 2 sets 10R, SAQ x 2 sets 10R, SLR into flexion x 2 sets 10R with cues for isolation of quad vs ankle DF compensation, AAROM heel slides in supine x 5R, (noted to bend AROM 78 start of session), Seated heel slides in chair better tolerated to 90 AAROM after 2 sets of 10R. Pt requires repeated encouragement and cues to hold length of knee flexion stretches during task, encouraged 10-15 sec hold, pt noted to not hold stretch much longer than 5 sec without cues. Patellar mobs reviewed with patient (instructed pt in self care for home at time of last session) Your not touching my kneecap today; last time it really hurt afterwards. Pt demonstated good tolerance for patellar mobs last session with minimal discomfort expressed Pt educated in need to mobilize kneecap and impact on ROM/mobility. Therapist provided pt with education of concern for limited ROM and why we need to mobilize kneecap. Gentle STM while knee applied in seated flexion and supine flexion stretches to aide in pain and increase tissue mobility. Standing step ups from 2 inch step leading with L LE x 2 sets 10R, 4 inch step leading with the L LE x 2 set 10R, then 6 inch with UE support x 2 sets 5R Pt noted to require max cues for proper sequencing noted to circumduct L LE vs flexion of knee. Encouragement to coordinate timing of pain medication ~ an hour before session so that drug will be prime in her system for therapy. Reiterated the importance of taking larger steps to promote knee flexion during swing phase. Pt noted to ambulate with stiff knee gait in step to pattern. Encouraged pt to even trial going back to use of walker as it may help aide her ability to bend her knee during gait. Reiterated need to bend knee at every opportunity (pt noted to kick leg out when going to sit down). Time spent educating patient in small frequent bends of the knee to gain overall improvement in ranges. Education to continue use of bike at home, trial of going back to walker to support knee flexion during gait, increase hold time of stretches, continue and try to be consistent with pain medication/timing of therex at home Modalities Assessment: Pt presents to clinic with use of std cane today, demonstrating guarded L knee, absent knee flexion in swing. Primary therapist is recommending pt increase her frequency from initial recommendation of 2x> to 3x/week due to stiffness in her knee. AROM -3 to 78 flexion today at start of session. AAROM seated heel slides tp 90. Pt reports inconsistency with taking her pain medication. She has been educated to try and take her pain medication consistently to improve her tolerance for therapy as well as coordinating her exercise/activity when her medication is prime in her system. Concern for increased stiffenss is noted PT Plan: Pt to see Dr. Hassan for follow up on 01/24/2020 Increase frequency of therapy to 3x/week for next few weeks to increase flexion of knee. Short Term Goals: 1. AAROM L knee flexion to 100 degrees. 2. AAROM L knee ext to -5 degrees. 3. Pt will ascend/descend stairs L knee with use of rail. 4. Pt will demonstrate good eccentric control with L SLR. 5. Pt will demonstrate strength L knee ext 5/5. Reporter Goals: 1. AAROM>AROM L knee flexion to 120 degrees. 2. AAROM>AROM L knee ext 0 degrees. 3. Pt will resume driving with clearance from MD. 4. Pt will demonstrate AROM L knee ext to 0 degrees. 5. Pt will demonstrate hip abd 5/5. 6. Pt will resume grocery/community shopping MOD I with std cane or without AD. Electronically signed by: Tabby Costello, PT, DPT
--- NOTE | 2020-03-02 11:38 | MHC.PT.OD ---
[facility] [place] Office [place] [facility] [place] [facility] [address] Chas Saldivar [address] [phone] F: [phone] F: [phone] F: [phone] F: [phone] Physical Therapy Daily Note Diagnosis: Presence of left artificial knee joint Z96.652 referred to PT from [facility] – [place] [facility] date of script 12/27/2019 signed by EDELM[address]A Sebastian Dr. surgeon Date of Surgery: 12/11/2019 Date of Evaluation: 02/17/20 Date of Treatment: 03/02/20 Treatments to Date: 19 Cancellations to Date: No Shows to Date: 0 Authorized Visits: 60 Insurance End Date: Precautions/ Contraindications:L TKA Dr. Hassan surgeon HX HTN, high cholesterol, glaucoma Subjective: Reports has been feeling more stiff past few days but has been working on stairs at home everyday. Continues to use std cane for community distances Pain Score and Location: 0 L KNEE Objective Flowsheet: Tests & Measures AROM 107 start of session AAROM>PROM 115 Exercises One seat up, level 2.0 x 15 minutes SAQ with 5# x 2 sets 20R, SLR into flexion with midrange hold on lowering x 2 sets 10R, AAROM heel slide with strap x 10 sec hold tp 115 Standing 4 inch, 6 inch step ups x 3 sets 10R Step down 4 inch 6 inch x 3 sets 10R Lateral step ups x 2 sets 10R Wobble board weight shifts staggered stance x 2 sets 10R Standing mini squat with wobble board in coronal plane x 2 set 10 Bridge x 2 sets 10R STM to anterior knee during AAROM heel slide with gentle PROM for overpressure to tolerance to 115 4inch step up x 3 sets 10R, 6 inch step up x 3 sets 10R, 4 inch step down from 3 sets 10R, 6 inch step down from 3 sets 10R, lateral step up and over x 3 sets 10R on 6 inch step HEP SHEETS ISSUED TODAY: Standing hip abd, ext, hs curls, heel raises x 2 sets 10R with emphasis to hold onto doorjam/counter/table for safety not a chair as shown in picture, standing chair squat with use of UE support x 2 sets 5R Modalities Assessment: Pt to see Dr. Hassan on 03/05/2020 Recommending pt continue with PT until she can meet LTG flexion of 120... Pt has been attending therapy 3xweekly discussed tapering to 2x/weekly. Pt states she is able to negotiate stairs reciprocally with good confidence, has been walking and doing her stairs at home several times throughout the day. Presents with use of std cane for community ambulation, without in her home setting. PT Plan: CONTINUE PT FOR END RANGE FLEXION ROM/LE STRENGTHENING, PROP WORK, GT Short Term Goals: 1. AAROM L knee flexion to 100 degrees. (MET) 1A. AAROM flexion to 105> AROM to 110. (met) 2. AAROM L knee ext to -5 degrees. (met) 3. Pt will ascend/descend stairs L knee with use of rail. (met) 4. Pt will demonstrate good eccentric control with L SLR. (met) 5. Pt will demonstrate strength L knee ext 5/5. Prison Goals: 1. AAROM>AROM L knee flexion to 120 degrees (updated goal on 02/17/2020).. 2. AAROM>AROM L knee ext 0 degrees. 3. Pt will resume driving with clearance from MD. 4. Pt will demonstrate AROM L knee ext to 0 degrees. 5. Pt will demonstrate hip abd 5/5. 6. Pt will resume grocery/community shopping MOD I with std cane or without AD. Electronically signed by: Tabby Costello, PT, DPT
== END 2020-03-19 08:36 | disposition other institution (70) ==
LOC: HO.PTWFD 08:00
PROVIDERS: Visit Provider Physician Assistant
DX: Z47.1 Aftercare following joint replacement surgery (principal); Z96.652 Presence of left artificial knee joint
CPT/HCPCS: 97110; 97116; 97140; 97161; 97530; 97535

== ENCOUNTER 2020-04-06 12:18 | Outpatient (REF) | payer MEDICARE, SELFPAY ==
[2020-04-06 14:25] LABS: Estimated Average Glucose 128 mg/dL; Hemoglobin A1c % 6.1 %
[2020-04-06 14:26] LABS: Basophils Percent Auto 0.3 % (0-2); Eosinophils Absolute Auto 0.2 X10*3/uL (0.0-0.4); Eosinophils Percent Auto 2.2 % (0-4); Hematocrit 44.5 % (37-47); Hemoglobin 13.7 g/dl (12.0-16.0); Imm Gran Abs Auto 0.02 X10*3/uL (0.00-0.03); Imm Gran Pct Auto 0.2 % (0.0-0.4); Lymphocytes Absolute Auto 2.1 X10*3/uL (1.2-4.9); Lymphocytes Percent Auto 24.5 % (20-40); MANUAL DIFF FLAG SCAN; Mean Corpuscular HGB Conc 30.8 g/dl (31.0-35.0); Mean Corpuscular Hemoglobin 28.1 pg (27.0-33.0); Mean Corpuscular Volume 91.4 fL (80-98); Mean Platelet Volume 13.2 fL (9.4-12.3); Monocytes Absolute Auto 0.5 X10*3/uL (0.1-1.2); Monocytes Percent Auto 6.1 % (2-11); Neutrophils Absolute Auto 5.7 X10*3/uL (2.0-8.3); Neutrophils Percent Auto 66.7 % (45-73); Red Blood Count 4.87 X10*6/uL (4.20-5.50); Red Cell Distribution Width 13.8 % (11.0-16.0); SCAN SMEAR FLAG 1; White Blood Count 8.6 X10*3/uL (4.8-10.8)
[2020-04-06 14:27] LABS: PLT ABN DIST 1
[2020-04-06 14:50] LABS: Alanine Aminotransferase 21 U/L (0-31); Albumin Level 4.4 g/dL (3.5-5.0); Alkaline Phosphatase 77 U/L (39-117); Anion Gap 16 (12-20); Aspartate Amino Transferase 17 U/L (5-31); Bilirubin Total 0.5 mg/dL (0.0-1.0); Blood Urea Nitrogen 17 mg/dL (9-16); Calcium 9.4 mg/dL (8.4-10.2); Carbon Dioxide 31 mmol/L (22-29); Chloride 99 mmol/L (96-108); Cholesterol 195 mg/dL; Estimated Glomerular Filt Rate > 60; Glucose Fasting 96 mg/dL (60-99); HDL Cholesterol 73 mg/dL; LDL Cholesterol Calculated 87 mg/dl; Potassium 3.9 mmol/L (3.3-5.1); Sodium 142 mmol/L (135-145); Total Protein 7.1 g/dL (6.5-8.0); Triglycerides 177 mg/dL
[2020-04-06 14:54] LABS: Platelet Count 159 X10*3/uL (160-400)
[2020-04-06 17:00] LABS: Reflex LDLD? No
[2020-04-06 18:43] LABS: SLIDE REVIEW VERIFIED
== END 2020-04-06 12:19 | disposition home or self-care (01) ==
LOC: HO.LNP 12:18
PROVIDERS: Visit Provider Internal Medicine
DX: Z00.00 Encounter for general adult medical examination without abnormal findings (principal); I10 Essential (primary) hypertension; R73.03 Prediabetes; E78.00 Pure hypercholesterolemia, unspecified
CPT/HCPCS: 80053; 80061; 83036; 85025

== ENCOUNTER 2020-04-11 08:00 | Outpatient (REF) | payer MEDICARE, SELFPAY ==
--- NOTE | ~2020-04-11 | XR_ITS ---
EXAMINATION: XR ANKLE, RIGHT CLINICAL INFORMATION: Right ankle pain. COMPARISON: None TECHNIQUE: AP, lateral, and mortise views of the right ankle. FINDINGS: The ankle joint and mortise are intact. There is no acute fracture or dislocation. The tarsal bones are normally aligned. There is a small plantar calcaneal spur. Mild soft tissue swelling is seen. XR/XR ankle RT min 3V IMPRESSION: Mild soft tissue swelling and small plantar calcaneal spur without acute underlying abnormality.
--- NOTE | ~2020-04-11 | XR_ITS ---
EXAMINATION: XR ANKLE, LEFT CLINICAL INFORMATION: Left ankle pain. COMPARISON: None TECHNIQUE: AP, lateral, and mortise views of the left ankle. FINDINGS: The ankle joint and mortise are intact. There is no acute fracture or dislocation. The tarsal bones are normally aligned. There is a small plantar calcaneal spur. Mild soft tissue swelling is seen. XR/XR ankle LT min 3V IMPRESSION: Mild soft tissue swelling and small plantar calcaneal spur without acute underlying abnormality.
== END 2020-04-11 08:01 | disposition home or self-care (01) ==
LOC: HO.LAB 08:00
PROVIDERS: PCP Internal Medicine; Visit Provider Physician Assistant
DX: M25.572 Pain in left ankle and joints of left foot (principal); M25.571 Pain in right ankle and joints of right foot
CPT/HCPCS: 73610

== ENCOUNTER 2020-04-13 10:31 | Outpatient (REF) | payer MEDICARE, SELFPAY ==
[2020-04-13 10:57] LABS: Glucose Urine UA NEG (NEG); Leukocyte Esterase Urine NEG (NEG); Nitrite Urine NEG (NEG); PH 5.5 (5.0-8.0); Specific Gravity - Urine 1.025 (1.005-1.025); Urine Blood NEG (NEG); Urine Ketones NEG (NEG); Urine Protein NEG (NEG-TRACE)
[2020-04-13 10:58] LABS: Appearance Urine CLEAR; Color Urine YELLOW
[2020-04-13 11:42] LABS: Creatinine Urine 52.42 mg/dL; Microalbum/Creatinine Ratio Ur 15.2 ug/mg cr
[2020-04-13 12:05] LABS: Mucus Urine TRACE /LPF; RBC Urine 0 /HPF (0); Squamous Epithelial Cell Urine 1+ /LPF
== END 2020-04-13 10:32 | disposition home or self-care (01) ==
LOC: HO.LNP 10:31
PROVIDERS: Visit Provider Internal Medicine
DX: Z00.00 Encounter for general adult medical examination without abnormal findings (principal); R73.03 Prediabetes; I10 Essential (primary) hypertension
CPT/HCPCS: 81001; 82043

== ENCOUNTER 2020-10-06 09:58 | Emergency (ER) | payer MEDICARE, SELFPAY ==
--- NOTE | ~2020-10-06 | XR_ITS ---
EXAMINATION: XR CHEST CLINICAL INFORMATION: Left-sided arm pain COMPARISON: None TECHNIQUE: Frontal view of the chest was obtained. FINDINGS: The cardiac and mediastinal contours are normal. The lungs are clear. There is no pleural effusion or pneumothorax. There are degenerative changes of the thoracic spine and curvature of the lower thoracic spine to the right. XR/XR chest 1V IMPRESSION: No evidence for acute disease in the chest.
--- NOTE | ~2020-10-06 | XR_ITS ---
EXAMINATION: XR ELBOW, LEFT XR FOREARM, LEFT XR WRIST, LEFT CLINICAL INFORMATION: Atraumatic left wrist/forearm/elbow pain. COMPARISON: None TECHNIQUE: AP and oblique views of the left elbow. AP and lateral views of the left forearm. PA, oblique, lateral, and scaphoid views of the left wrist. FINDINGS: LEFT ELBOW: There is no acute fracture, malalignment, or joint effusion. There is a tiny spur involving the radial head. There is a tiny loose body or unfused osteophyte involving the coronoid process. There is no joint space narrowing. There is focal curvilinear calcification adjacent to the medial humeral epicondyle suspicious for chronic epicondylitis. A small spur involving the lateral humeral epicondyle may also be related to chronic epicondylitis. LEFT FOREARM: There is no acute fracture or malalignment. LEFT WRIST: There is no acute fracture or malalignment. There is a tiny old ununited displaced ulnar styloid fracture. There is mild osteoarthritis of the triscaphe and 1st CMC joints. XR/XR wrist LT min 3V IMPRESSION: LEFT ELBOW: Mild chronic/degenerative changes, as described above. LEFT FOREARM: Unremarkable. LEFT WRIST: Old ulnar styloid fracture. 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
--- NOTE | ~2020-10-06 | XR_ITS ---
EXAMINATION: XR ELBOW, LEFT XR FOREARM, LEFT XR WRIST, LEFT CLINICAL INFORMATION: Atraumatic left wrist/forearm/elbow pain. COMPARISON: None TECHNIQUE: AP and oblique views of the left elbow. AP and lateral views of the left forearm. PA, oblique, lateral, and scaphoid views of the left wrist. FINDINGS: LEFT ELBOW: There is no acute fracture, malalignment, or joint effusion. There is a tiny spur involving the radial head. There is a tiny loose body or unfused osteophyte involving the coronoid process. There is no joint space narrowing. There is focal curvilinear calcification adjacent to the medial humeral epicondyle suspicious for chronic epicondylitis. A small spur involving the lateral humeral epicondyle may also be related to chronic epicondylitis. LEFT FOREARM: There is no acute fracture or malalignment. LEFT WRIST: There is no acute fracture or malalignment. There is a tiny old ununited displaced ulnar styloid fracture. There is mild osteoarthritis of the triscaphe and 1st CMC joints. XR/XR forearm LT 2V IMPRESSION: LEFT ELBOW: Mild chronic/degenerative changes, as described above. LEFT FOREARM: Unremarkable. LEFT WRIST: Old ulnar styloid fracture. 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
--- NOTE | ~2020-10-06 | XR_ITS ---
EXAMINATION: XR ELBOW, LEFT XR FOREARM, LEFT XR WRIST, LEFT CLINICAL INFORMATION: Atraumatic left wrist/forearm/elbow pain. COMPARISON: None TECHNIQUE: AP and oblique views of the left elbow. AP and lateral views of the left forearm. PA, oblique, lateral, and scaphoid views of the left wrist. FINDINGS: LEFT ELBOW: There is no acute fracture, malalignment, or joint effusion. There is a tiny spur involving the radial head. There is a tiny loose body or unfused osteophyte involving the coronoid process. There is no joint space narrowing. There is focal curvilinear calcification adjacent to the medial humeral epicondyle suspicious for chronic epicondylitis. A small spur involving the lateral humeral epicondyle may also be related to chronic epicondylitis. LEFT FOREARM: There is no acute fracture or malalignment. LEFT WRIST: There is no acute fracture or malalignment. There is a tiny old ununited displaced ulnar styloid fracture. There is mild osteoarthritis of the triscaphe and 1st CMC joints. XR/XR elbow LT min 3V IMPRESSION: LEFT ELBOW: Mild chronic/degenerative changes, as described above. LEFT FOREARM: Unremarkable. LEFT WRIST: Old ulnar styloid fracture. 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
[2020-10-06 10:49] VITALS: BP 211/94; PULSE 76; RESP 16; TEMP 37.2; O2SAT 97; BMI 29.2
--- NOTE | 2020-10-06 11:22 | ECG_ITS ---
Test Reason : WEAKNESS Blood Pressure : / mmHG Vent. Rate : 071 BPM Atrial Rate : 071 BPM P-R Int : 118 ms QRS Dur : 074 ms QT Int : 374 ms P-R-T Axes : 039 019 022 degrees QTc Int : 406 ms Normal sinus rhythm Normal ECG When compared with ECG of 15-NOV-2019 07:56, No significant change was found Referred By: Keyla Kang Electronically Signed By:ROB CHAPIN
[2020-10-06] MEDS: HYDROcodone Bit/Acetam 5/325 TABLET 1 TAB PO (11:59)
[2020-10-06 12:31] LABS: MANUAL DIFF FLAG NO
[2020-10-06 12:32] LABS: Basophils Percent Auto 0.1 % (0-2); Eosinophils Absolute Auto 0.2 X10*3/uL (0.0-0.4); Eosinophils Percent Auto 1.6 % (0-4); Hematocrit 41.7 % (37-47); Hemoglobin 13.6 g/dl (12.0-16.0); Imm Gran Abs Auto 0.03 X10*3/uL (0.00-0.03); Imm Gran Pct Auto 0.3 % (0.0-0.4); Lymphocytes Absolute Auto 2.2 X10*3/uL (1.2-4.9); Mean Corpuscular HGB Conc 32.6 g/dl (31.0-35.0); Mean Corpuscular Hemoglobin 29.3 pg (27.0-33.0); Mean Corpuscular Volume 89.9 fL (80-98); Mean Platelet Volume 10.4 fL (9.4-12.3); Monocytes Absolute Auto 0.6 X10*3/uL (0.1-1.2); Monocytes Percent Auto 5.9 % (2-11); Neutrophils Absolute Auto 6.9 X10*3/uL (2.0-8.3); Neutrophils Percent Auto 70.1 % (45-73); Platelet Count 243 X10*3/uL (160-400); Red Blood Count 4.64 X10*6/uL (4.20-5.50); Red Cell Distribution Width 12.8 % (11.0-16.0); White Blood Count 9.8 X10*3/uL (4.8-10.8)
[2020-10-06 12:38] LABS: INTERNATIONAL NORM RATIO 0.9 (0.9-1.1); Prothrombin Time 10.3 SEC (9.9-13.0)
[2020-10-06 12:45] LABS: Alanine Aminotransferase 19 U/L (0-31); Albumin Level 4.3 g/dL (3.5-5.0); Alkaline Phosphatase 68 U/L (39-117); Anion Gap 11 (12-20); Aspartate Amino Transferase 18 U/L (5-31); Bilirubin Total 0.7 mg/dL (0.0-1.0); Blood Urea Nitrogen 19 mg/dL (9-16); Calcium 10.4 mg/dL (8.4-10.2); Carbon Dioxide 33 mmol/L (22-29); Chloride 98 mmol/L (96-108); Creatinine Clr Calc Pharmacy 67.2; Estimated Glomerular Filt Rate > 60; Glucose Random 91 mg/dL (60-115); Magnesium 2.4 mg/dL (1.6-2.6); Potassium 3.9 mmol/L (3.3-5.1); Sodium 138 mmol/L (135-145); Total Protein 6.9 g/dL (6.5-8.0)
[2020-10-06 12:51] LABS: Troponin-I High Sensitivity 4.5 ng/L (<3.5-17.0)
--- NOTE | 2020-10-06 13:14 | ED.EXTPRO ---
HPI - Extremity Problem General Chief complaint: Extremity Injury, Upper Stated complaint: lt arm pain Time Seen by Provider: 10/06/20 11:09 Source: patient Mode of arrival: ambulatory Limitations: no limitations History of Present Illness HPI Narrative: 69-year-old female with a past medical history of hypertension, hyperlipidemia and glaucoma presenting to the ED with complaints of atraumatic left elbow pain radiating to her left forearm/wrist although the pain to the left forearm/wrist has completely resolved. She denies any fevers, chills, dizziness, headaches, neck pain/stiffness, chest pain, shortness breath, dyspnea on exertion, orthopnea, palpitations, abdominal pain, back pain, recent travel or sick contacts, hypercoagulation disorder, recent immobilization or surgery, history of DVT or PE any estrogen usage or any other symptoms complaints or concerns at this time. MD Complaint: extremity pain Onset (ago): day(s) (Two days) Pain Consistency: constant Location: left and elbow Quality: constant and other (Patient reports pain she cannot describe it just states pain) Radiation: distal Relieving factors: nothing Exacerbating factors: nothing Associated symptoms: denies other symptoms Related Data Home Medications Medication Instructions Recorded Confirmed latanoprost 0.005 % eye drops 1 drp OPHTHALMIC (EYE) DAILY 11/04/19 12/11/19 simvastatin 40 mg tablet 40 mg PO BEDTIME 11/04/19 11/27/19 betaxolol 0.25 % eye 1 drp OPHTHALMIC (EYE) DAILY 11/27/19 11/27/19 drops,suspension (Betoptic S) cholecalciferol (vitamin D3) 25 25 mcg PO DAILY 11/27/19 11/27/19 mcg (1,000 unit) capsule (Vitamin D3) valsartan 80 1 tab PO DAILY 11/27/19 11/27/19 mg-hydrochlorothiazide 12.5 mg tablet Previous Rx's Medication Instructions Recorded acetaminophen 325 mg tablet 650 mg PO Q6H PRN 30 Days #240 tab 12/12/19 aspirin 325 mg tablet 325 mg PO BID 14 Days #28 tab 12/12/19 docusate sodium 100 mg capsule 100 mg PO BID 30 Days #60 cap 12/12/19 scopolamine base 1 mg over 3 days 1.5 mg EAR-BEHIND Q72H 6 Days #4 ea 12/12/19 transdermal patch (Transderm-Scop 1.5 mg transdermal patch () amoxicillin 500 mg tablet 500 mg PO ONCE 1 Days #4 tab 01/20/20 oxycodone 5 mg tablet 5 mg PO Q8H PRN 7 Days #21 tab 02/11/20 hydrocodone 5 mg-acetaminophen 325 1 tab PO Q8H PRN #14 tab 10/06/20 mg tablet Allergies Allergy/AdvReac Type Severity Reaction Status Date / Time skin prep Allergy Hives Uncoded 11/27/19 13:35 Review of Systems Review of Systems: Constitutional : No Weight loss, No Fever, No Chills, No Night Sweats, No Fatigue, No Malaise ENT/Mouth : No Hearing loss, No Ear Pain, No Nasal Congestion, No Sinus Pain, No Hoarseness, No sore throat, No Rhinorrhea, No Swallowing Difficulty Eyes: No Eye Pain, No Swelling, No Redness, No Foreign Body, No Discharge, No Vision Changes Cardiovascular : No Chest Pain, No SOB, No Dyspnea on Exertion, No Orthopnea, No Edema, No Palpitations Respiratory : No Cough, No Sputum, No Wheezing, No Smoke Exposure, No Dyspnea Gastrointestinal : No Nausea, No Vomiting, No Diarrhea, No Constipation, No abdominal Pain, No Hematochezia, No Melena Genitourinary : no irregular bleeding, No Dysuria, No Urinary Frequency, No Hematuria, No Urinary Incontinence, No Urgency, No Flank Pain, No Urinary Flow Changes, No Hesitancy Musculoskeletal : Positive left elbow joint pain, No Myalgias, No Joint Swelling Skin : No Skin Lesions, No rash Neuro : No Weakness, No Numbness, No Paresthesias, No Loss of Consciousness, No Dizziness, No Headache Psych : No Anxiety/Panic, No Depression, No SI/HI/AH/VH, No Social Issues, Heme/Lymph: No Bruising, No Bleeding,No Lymphadenopathy Endocrine : No Polyuria, No Polydipsia, No Temperature Intolerance Yes all other systems are reviewed and are negative [facility] Past Medical History Attestation statement: The following information was validated with the patient. Medical History Glaucoma High cholesterol HTN (hypertension) Osteoarthritis of left knee Osteoarthritis of left knee Surgical History History of total knee arthroplasty Family History Family History Father No problems noted. Mother No problems noted. Sister Colon cancer Sister No problems noted. Brother No problems noted. Brother No problems noted. Son No problems noted. Daughter No problems noted. Social History Social History Are you a primary career information specialist to a significant other at home: No Do you presently have visiting nurse or other home services: No Alcohol intake: never Second Hand Smoke Exposure: No Advance Directives: No Advance Directives Information Provided: No service: No Current occupational status: unemployed Physical Exam Vital Signs: Vital Signs: Last Vital Signs Temp 98.9 F 10/06/20 10:49 Pulse 76 10/06/20 10:49 Resp 16 10/06/20 10:49 BP 211/94 H 10/06/20 10:49 Pulse Ox 97 10/06/20 10:49 Body Mass Index 29.2 vital signs have been reviewed as normal and appeared to be correct. Blood pressure normal. Heart rate normal. Respiration rate normal. Temperature normal. Oxygen saturation normal. Appearance: Alert. Oriented X3. No acute distress. Head: Normal external exam. Normocephalic. Atraumatic. No Dixon signs noted. No raccoon eyes noted Eyes: PERRLA. EOMI. Conjunctiva and sclera normal. Eyelids normal. ENT: EAC normal. TM's Normal. Pharynx normal. Uvula midline. Moist mucous membranes. No trismus noted. No drooling noted. No muffled voice noted. Neck: Normal inspection. Neck supple. FROM. No adenopathy. Thyroid Normal. No meningeal signs. No neck mass noted. CVS: Normal heart rate and rhythm. Heart sound normal. Pulses normal throughout. No murmurs/rales/gallops. Respiratory: No respiratory distress. Painless inspiration. Breath sounds normal. No wheezes/rales/rhonchi noted. Chest nontender. No accessory muscle usage noted or decreased air movement noted. Abdomen: Soft and nontender. Bowel sounds normal in all 4 quadrants. No distention noted. No organomegaly noted. No visible injury noted. Back: No CVA tenderness. Full range of motion noted. No rashes/lesion/induration/fluctuance or signs of infection noted. Skin: Skin warm and dry. Normal skin color. Normal skin turgor. No rashes/lesions/lacerations noted. Extremities: No lower extremity edema. Extremities exhibit normal range of motion. Extremities nontender. Neuro: Oriented X 3. No motor deficit. No sensory deficit. Reflexes normal. Normal steady gait. No focal neuro deficits noted. Vascular: + radial pulses/+ 2 distal pedal pulses/+2 dorsalis pedis b/l. Normal cap refill. No cyanosis noted to upper extremity nails and lower extremity toes nails. Course Course Course Narrative: 69-year-old female with a past medical history of hypertension, hyperlipidemia and glaucoma presenting to the ED with complaints of atraumatic left elbow pain radiating to her left forearm/wrist although the pain to the left forearm/wrist has completely resolved. Labs obtained and carbon dioxide 33. Anion gap 11. BUN 19. Calcium 10.4. Troponin 4.5. Otherwise all other labs are within normal limits. EKG is normal sinus rhythm with a ventricular rate of 71 with a normal NC interval normal QRS duration normal QT/QTC interval. no acute ischemic changes are noted. Chest x-ray within normal limits no acute processes are noted. Mild chronic degenerative changes. Left forearm x-ray unremarkable. Left wrist x-ray revealed old ulnar styloid fracture with mild osteoarthritis otherwise no other acute processes. Therefore at this time it is safe to discharge the patient with symptomatic treatment along with instructions return if any new or worsening symptoms to follow up with primary care provider. Patient understands agrees with this plan. MDM - Extremity (Nontraumatic) Medical Records Attestation: I reviewed the patient's medical records. Lab Data Attestation: I reviewed the patient's lab results. Result diagrams: 10/06/20 12:25 10/06/20 12:25 Labs: Lab Results 10/06/20 10/06/20 10/06/20 Range/Units 12:25 12:25 12:25 WBC 9.8 (4.8-10.8) X10*3/uL RBC 4.64 (4.20-5.50) X10*6/uL Hgb 13.6 (12.0-16.0) g/dl Hct 41.7 (37-47) % MCV 89.9 (80-98) fL MCH 29.3 (27.0-33.0) pg MCHC 32.6 (31.0-35.0) g/dl RDW 12.8 (11.0-16.0) % Plt Count 243 D (160-400) X10*3/uL MPV 10.4 (9.4-12.3) fL Immature Gran % (Auto) 0.3 (0.0-0.4) % Neut % (Auto) 70.1 (45-73) % Lymph % (Auto) 22.0 (20-40) % [place] % (Auto) 5.9 (2-11) % Eos % (Auto) 1.6 (0-4) % Baso % (Auto) 0.1 (0-2) % Lymph # (Auto) 2.2 (1.2-4.9) X10*3/uL [place] # (Auto) 0.6 (0.1-1.2) X10*3/uL Eos # (Auto) 0.2 (0.0-0.4) X10*3/uL Baso # (Auto) 0.0 (0.0-0.2) X10*3/uL Abs Immat Gran (auto) 0.03 (0.00-0.03) X10*3/uL Absolute Neuts (auto) 6.9 (2.0-8.3) X10*3/uL Absolute Nucleated RBC 0.000 (0.0-0.012) X10*3/uL Nucleated RBC % (auto) 0.0 (0.0-0.2) /100WBC PT 10.3 (9.9-13.0) SEC INR 0.9 (0.9-1.1) Sodium 138 (135-145) mmol/L Potassium 3.9 (3.3-5.1) mmol/L Chloride 98 (96-108) mmol/L Carbon Dioxide 33 H (22-29) mmol/L Anion Gap 11 L (12-20) BUN 19 H (9-16) mg/dL Creatinine 0.68 (0.5-1.4) mg/dL Estim Creat Clear Calc 67.2 Estimated GFR > 60 Random Glucose 91 (60-115) mg/dL Calcium 10.4 H D (8.4-10.2) mg/dL Magnesium 2.4 (1.6-2.6) mg/dL Total Bilirubin 0.7 (0.0-1.0) mg/dL AST 18 (5-31) U/L ALT 19 (0-31) U/L Alkaline Phosphatase 68 (39-117) U/L Troponin I High Sens (<3.5-17.0) ng/L Total Protein 6.9 (6.5-8.0) g/dL Albumin 4.3 (3.5-5.0) g/dL 10/06/20 Range/Units 12:25 WBC (4.8-10.8) X10*3/uL RBC (4.20-5.50) X10*6/uL Hgb (12.0-16.0) g/dl Hct (37-47) % MCV (80-98) fL MCH (27.0-33.0) pg MCHC (31.0-35.0) g/dl RDW (11.0-16.0) % Plt Count (160-400) X10*3/uL MPV (9.4-12.3) fL Immature Gran % (Auto) (0.0-0.4) % Neut % (Auto) (45-73) % Lymph % (Auto) (20-40) % [place] % (Auto) (2-11) % Eos % (Auto) (0-4) % Baso % (Auto) (0-2) % Lymph # (Auto) (1.2-4.9) X10*3/uL [place] # (Auto) (0.1-1.2) X10*3/uL Eos # (Auto) (0.0-0.4) X10*3/uL Baso # (Auto) (0.0-0.2) X10*3/uL Abs Immat Gran (auto) (0.00-0.03) X10*3/uL Absolute Neuts (auto) (2.0-8.3) X10*3/uL Absolute Nucleated RBC (0.0-0.012) X10*3/uL Nucleated RBC % (auto) (0.0-0.2) /100WBC PT (9.9-13.0) SEC INR (0.9-1.1) Sodium (135-145) mmol/L Potassium (3.3-5.1) mmol/L Chloride (96-108) mmol/L Carbon Dioxide (22-29) mmol/L Anion Gap (12-20) BUN (9-16) mg/dL Creatinine (0.5-1.4) mg/dL Estim Creat Clear Calc Estimated GFR Random Glucose (60-115) mg/dL Calcium (8.4-10.2) mg/dL Magnesium (1.6-2.6) mg/dL Total Bilirubin (0.0-1.0) mg/dL AST (5-31) U/L ALT (0-31) U/L Alkaline Phosphatase (39-117) U/L Troponin I High Sens 4.5 (<3.5-17.0) ng/L Total Protein (6.5-8.0) g/dL Albumin (3.5-5.0) g/dL Discharge Plan Discharge Clinical Impression: Arthritis of left elbow Patient Disposition: Home, Self-Care Instructions: Osteoarthritis (ED) Prescriptions: New hydrocodone-acetaminophen 5-325 mg tablet 1 tab PO Q8H PRN (Reason: pain) Qty: 14 RF: 0 No Action amoxicillin 500 mg tablet 500 mg PO ONCE 1 Days Qty: 4 RF: 3 oxycodone 5 mg tablet 5 mg PO Q8H PRN (Reason: Pain, Moderate (Pain Scale 4-6) 7 Days Qty: 21 RF: 0 valsartan-hydrochlorothiazide 80-12.5 mg tablet 1 tab PO DAILY RF: 0 Betoptic S 0.25 % Drops,Suspension 1 drp ophthalmic (eye) DAILY RF: 0 cholecalciferol (vitamin D3) [Vitamin D3] 25 mcg (1,000 unit) Capsule 25 mcg PO DAILY RF: 0 acetaminophen 325 mg Tablet 650 mg PO Q6H PRN (Reason: Pain, Mild (Pain Scale 1-3)) 30 Days Qty: 240 RF: 0 aspirin 325 mg Tablet 325 mg PO BID 14 Days Qty: 28 RF: 0 docusate sodium 100 mg Capsule 100 mg PO BID 30 Days Qty: 60 RF: 0 scopolamine base [Transderm-Scop] 1 mg over 3 days Patch 3 Day 1.5 mg EAR-BEHIND Q72H 6 Days Qty: 4 RF: 0 latanoprost 0.005 % drops 1 drp ophthalmic (eye) DAILY RF: 0 simvastatin 40 mg tablet 40 mg PO BEDTIME RF: 0 Referrals: Ignacio Bray MD [Primary Care Provider] - 2 days Print Language: Nigerian
== END 2020-10-06 13:35 | disposition home or self-care (01) ==
PROVIDERS: Physician Assistant Medical; Emergency Provider Emergency Medicine; PCP Internal Medicine
DX: M19.022 Primary osteoarthritis, left elbow (principal); I10 Essential (primary) hypertension; E78.00 Pure hypercholesterolemia, unspecified; Z79.82 Long term (current) use of aspirin; Z79.02 Long term (current) use of antithrombotics/antiplatelets
CPT/HCPCS: 36415; 71045; 73080; 73090; 73110; 80053; 83735; 84484; 85025; 85610; 93005; 99283; 99284

== ENCOUNTER 2020-10-12 09:02 | Emergency (ER) | payer MEDICARE, SELFPAY ==
[2020-10-12 09:18] VITALS: BP 172/75; PULSE 73; RESP 16; TEMP 36.5; O2SAT 98; BMI 29.2
--- NOTE | 2020-10-12 09:34 | ED_ITS ---
HPI - Extremity Problem General Chief complaint: Extremity Problem Stated complaint: ELBOW TO BACK OF SHOULDER PAIN Time Seen by Provider: 10/12/20 09:34 Source: patient Mode of arrival: ambulatory Limitations: no limitations History of Present Illness HPI Narrative: 69-year-old female with past medical history of hypertension, hypercholesteremia, status post left knee replacement is presenting to the ED with nontraumatic left wrist and elbow pain. Patient reports that the elbow pain radiates to her shoulder especially at night when she is trying to sleep. Patient was seen here on the 06 of October for the same. X-rays were taking and showed chronic changes no acute processes. Patient removed reports that she does not have any medications at home to help her with her pain. She takes ibuprofen. Patient denies any fever, chills, headache, neck pain or stiffness, CP, COPD be with or without exertion, presyncope, syncope, orthopnea or palpitation. Patient denies any abdominal, or back pain denies any recent travel or any sick contact. Patient does not have any recent his surgery except for previous knee surgery. Patient is not on any hormone therapy or has no history of DVTs. MD Complaint: extremity pain Onset (ago): week(s) Pain Consistency: intermittent Location: left Quality: aching Radiation: proximal Relieving factors: nothing Exacerbating factors: range of motion Associated symptoms: denies other symptoms Related Data Home Medications Medication Instructions Recorded Confirmed latanoprost 0.005 % eye drops 1 drp OPHTHALMIC (EYE) DAILY 11/04/19 12/11/19 simvastatin 40 mg tablet 40 mg PO BEDTIME 11/04/19 11/27/19 betaxolol 0.25 % eye 1 drp OPHTHALMIC (EYE) DAILY 11/27/19 11/27/19 drops,suspension (Betoptic S) cholecalciferol (vitamin D3) 25 25 mcg PO DAILY 11/27/19 11/27/19 mcg (1,000 unit) capsule (Vitamin D3) valsartan 80 1 tab PO DAILY 11/27/19 11/27/19 mg-hydrochlorothiazide 12.5 mg tablet Previous Rx's Medication Instructions Recorded acetaminophen 325 mg tablet 650 mg PO Q6H PRN 30 Days #240 tab 12/12/19 aspirin 325 mg tablet 325 mg PO BID 14 Days #28 tab 12/12/19 docusate sodium 100 mg capsule 100 mg PO BID 30 Days #60 cap 12/12/19 scopolamine base 1 mg over 3 days 1.5 mg EAR-BEHIND Q72H 6 Days #4 ea 12/12/19 transdermal patch (Transderm-Scop 1.5 mg transdermal patch () amoxicillin 500 mg tablet 500 mg PO ONCE 1 Days #4 tab 01/20/20 oxycodone 5 mg tablet 5 mg PO Q8H PRN 7 Days #21 tab 02/11/20 hydrocodone 5 mg-acetaminophen 325 1 tab PO Q8H PRN #14 tab 10/06/20 mg tablet cyclobenzaprine 10 mg tablet 10 mg PO BID PRN #10 tab 10/12/20 Allergies Allergy/AdvReac Type Severity Reaction Status Date / Time skin prep Allergy Hives Uncoded 11/27/19 13:35 Review of Systems Review of Systems: Constitutional : No Weight loss, No Fever, No Chills, No Night Sweats, No Fatigue, No Malaise ENT/Mouth : No Hearing loss, No Ear Pain, No Nasal Congestion, No Sinus Pain, No Hoarseness, No sore throat, No Rhinorrhea, No Swallowing Difficulty Eyes: No Eye Pain, No Swelling, No Redness, No Foreign Body, No Discharge, No Vision Changes Cardiovascular : No Chest Pain, No SOB, No Dyspnea on Exertion, No Orthopnea, No Edema, No Palpitations Respiratory : No Cough, No Sputum, No Wheezing, No Smoke Exposure, No Dyspnea Gastrointestinal : No Nausea, No Vomiting, No Diarrhea, No Constipation, No abdominal Pain, No Hematochezia, No Melena Genitourinary : no irregular bleeding, No Dysuria, No Urinary Frequency, No Hematuria, No Urinary Incontinence, No Urgency, No Flank Pain, No Urinary Flow Changes, No Hesitancy Musculoskeletal : joint pain, Myalgias, No Joint Swelling Skin : No Skin Lesions, No rash Neuro : No Weakness, No Numbness, No Paresthesias, No Loss of Consciousness, No Dizziness, No Headache Psych : No Anxiety/Panic, No Depression, No SI/HI/AH/VH, No Social Issues, Heme/Lymph: No Bruising, No Bleeding,No Lymphadenopathy Endocrine : No Polyuria, No Polydipsia, No Temperature Intolerance Yes all other systems are reviewed and are negative PMFSH Past Medical History Medical History Glaucoma High cholesterol HTN (hypertension) Osteoarthritis of left knee Osteoarthritis of left knee Surgical History History of total knee arthroplasty Family History Family History Father No problems noted. Mother No problems noted. Sister Colon cancer Sister No problems noted. Brother No problems noted. Brother No problems noted. Son No problems noted. Daughter No problems noted. Social History Social History Are you a primary animal caretaker to a significant other at home: No Do you presently have visiting nurse or other home services: No Alcohol intake: never Second Hand Smoke Exposure: No Advance Directives: Yes Advance Directives Information Provided: Yes Advance Directives on File: No service: No Current occupational status: unemployed Physical Exam Vital Signs: Vital Signs: Last Vital Signs Temp 97.7 F 10/12/20 09:18 Pulse 73 10/12/20 09:18 Resp 16 10/12/20 09:18 BP 172/75 H 10/12/20 09:18 Pulse Ox 98 10/12/20 09:18 Body Mass Index 29.2 Const: General: healthy appearing, no acute distress and well developed Nutritional Appearance: well nourished Orientation/consciousness: patient oriented x3 HENMT: Head: Yes normal to inspection, Yes normocephalic and Yes atraumatic Ears: hearing grossly normal bilaterally General nose exam: Normal external nose present Face and sinus: Yes normal facial exam Neck: Neck: Yes normal visual inspection, Yes full ROM and Yes trachea midline Thyroid: Thyroid normal Resp: Auscultation: clear to auscultation bilaterally Cardio: Rate: regular rate Rhythm: regular rhythm GI: Inspection: Yes normal to inspection and No distended Palpation (GI): No hepatosplenomegaly present Auscultation: normal bowel sounds Skin: General skin exam: elasticity normal, turgor normal and dry skin Neuro: General: patient oriented x3 Extrem: Right upper extremity: normal to inspection, full ROM and normal capillary refill; No no cyanosis, no edema and joint enlargement noted Left upper extremity: normal to inspection, full ROM and normal capillary refill; No no cyanosis, no edema and joint enlargement noted Right lower extremity: normal to inspection and full ROM Left lower extremity: normal to inspection and full ROM Course Course Course Narrative: 69-year-old female with past medical history of hypertension, hyperlipidemia, history of knee replacement is here today for left wrist, elbow, shoulder pain. Patient reports that she was here back in September. She reports that she goes to see to her pain management doctor in [place], however has n ot had a chance to going see her yet as she was just in the ER few days ago. Patient reports that she is unable to sleep at night due to pain. Will send patient home to follow-up with her primary care doctor. I will give her script for cyclobenzaprine and order cyclobenzaprine while in the ED. She was given the opportunity to ask questions and all questions answered. Reevaluation(s) Reevaluation #1: . Discharge Plan Discharge Clinical Impression: Joint pain Qualifiers: Joint pain location: elbow Laterality: left Qualified Code(s): M25.522 - Pain in left elbow Patient Disposition: Home, Self-Care Instructions: Arthralgia (ED) Additional Instructions: You were seen here today for complaint of your elbow and shoulder pain. You were seen here few days ago annular x-ray showed that you have chronic changes. You were given dose of on muscle relaxer that will help relax her muscles so you can move your joints better. Please make sure that you do not drive when you take this medication. You may take ibuprofen in addition to this medication. Please follow-up with your pain clinic. You were given number to orthopedic surgeon as well you can follow-up with them. Please follow-up with your primary care doctor in 2-3 days. You may return to emergency department if her symptoms will get worse or if you will experience any additional concerning symptoms. Prescriptions: New cyclobenzaprine 10 mg tablet 10 mg PO BID PRN (Reason: muscle spasm) Qty: 10 RF: 0 No Action amoxicillin 500 mg tablet 500 mg PO ONCE 1 Days Qty: 4 RF: 3 oxycodone 5 mg tablet 5 mg PO Q8H PRN (Reason: Pain, Moderate (Pain Scale 4-6) 7 Days Qty: 21 RF: 0 valsartan-hydrochlorothiazide 80-12.5 mg tablet 1 tab PO DAILY RF: 0 Betoptic S 0.25 % Drops,Suspension 1 drp ophthalmic (eye) DAILY RF: 0 cholecalciferol (vitamin D3) [Vitamin D3] 25 mcg (1,000 unit) Capsule 25 mcg PO DAILY RF: 0 acetaminophen 325 mg Tablet 650 mg PO Q6H PRN (Reason: Pain, Mild (Pain Scale 1-3)) 30 Days Qty: 240 RF: 0 aspirin 325 mg Tablet 325 mg PO BID 14 Days Qty: 28 RF: 0 docusate sodium 100 mg Capsule 100 mg PO BID 30 Days Qty: 60 RF: 0 scopolamine base [Transderm-Scop] 1 mg over 3 days Patch 3 Day 1.5 mg EAR-BEHIND Q72H 6 Days Qty: 4 RF: 0 hydrocodone-acetaminophen 5-325 mg tablet 1 tab PO Q8H PRN (Reason: pain) Qty: 14 RF: 0 latanoprost 0.005 % drops 1 drp ophthalmic (eye) DAILY RF: 0 simvastatin 40 mg tablet 40 mg PO BEDTIME RF: 0 Interventions: ED Discharge Assessment Last Done: 10/12/20 10:10 Discharge Date/Time: 10/12/20 10:10
[2020-10-12] MEDS: Cyclobenzaprine HCl 10 MG TABLET PO (09:58)
== END 2020-10-12 10:10 | disposition home or self-care (01) ==
PROVIDERS: Emergency Provider Emergency Medicine; PCP Internal Medicine
DX: M25.522 Pain in left elbow (principal); I10 Essential (primary) hypertension; E78.5 Hyperlipidemia, unspecified; Z96.652 Presence of left artificial knee joint; Z79.899 Other long term (current) drug therapy
CPT/HCPCS: 99283; 99284

== ENCOUNTER 2021-02-11 10:54 | Outpatient (REF) | payer MEDICARE, SELFPAY | END 2021-02-11 10:55 | disposition home or self-care (01) | LOC: HO.WFDLDS 10:54 | PROVIDERS: PCP Internal Medicine; Visit Provider Internal Medicine | DX: Z20.822 Contact with and (suspected) exposure to COVID-19 (principal) | CPT/HCPCS: C9803; U0003; U0005 ==

== ENCOUNTER 2021-03-09 09:27 | Outpatient (REF) | payer MEDICARE, SELFPAY ==
--- NOTE | ~2021-03-09 | MM_ITS ---
EXAMINATION: MM SCREENING DIGITAL BREAST TOMOSYNTHESIS, BILATERAL CLINICAL INFORMATION: Screening. Asymptomatic. The lifetime risk of breast cancer based on the Tyrer-Cuzick Model is 6%. COMPARISON: Mammography: 04/18/2019 (new baseline) TECHNIQUE: Digital breast tomosynthesis is performed in both the craniocaudal and mediolateral oblique views along with computer-aided detection (CAD). Synthesized 2D images are generated from the tomosynthesis. Additional bilateral MLO views are provided. FINDINGS: The breasts are almost entirely fatty (ACR BI-RADS breast composition Category a). Right breast is unremarkable. Stromal markings are stable. There is no interval mass or developing density. There are scattered benign bilateral round and rim calcifications. The bilateral axilla and skin contours are unremarkable. Left MLO view has small asymmetric density mid upper quadrant questionably increased attenuation, more conspicuous. CC view stromal markings are stable. Patient will be recalled for additional imaging. MM/MM tomosynthesis screening BI IMPRESSION: 1. Left: Asymmetric density mid upper quadrant, more conspicuous, possibly incompletely compressed. 2. Right: No mammographic evidence of malignancy. ASSESSMENT: BI-RADS 0: Incomplete - Need Additional Imaging Evaluation RECOMMENDATION: 1. Additional views of the left breast (spot MLO, standard ML). 2. Targeted ultrasound if warranted after review of the additional views. 3. Radiology department staff will contact the patient for additional imaging. This patient's information was entered into a reminder system with a target due date for their next mammogram.
--- NOTE | ~2021-03-09 | MM_ITS ---
EXAMINATION: BONE DENSITOMETRY CLINICAL INDICATION: Osteoporosis. COMPARISON: None (current study represents initial baseline exam). TECHNIQUE: Using a GoTable DXA System (software version: 13.1) manufactured by [employer], dual-energy x-ray absorptiometry was performed of the lumbar spine and left hip. The images are of good technical quality. Summary results are attached. FINDINGS: AP SPINE L1-L4 (excluding L3): The data of L1-L4 has been changed to exclude the L3 vertebral body, because degenerative changes at this level may cause overestimation of lumbar spine density. BMD 1.444 g/cm2, Z-score 3.7, T-score 2.3, normal. LEFT FEMUR, NECK: BMD 1.050 g/cm2, Z-score 1.6, T-score 0.1, normal. LEFT FEMUR, TOTAL: BMD 1.078 g/cm2, Z-score 1.8, T-score 0.6, normal. IDENTIFIED RISK FACTORS: Early menopause, secondary osteoporosis, rheumatoid arthritis, osteoporosis. HISTORY OF FRACTURE: None listed. MEDICATIONS: Vitamin D. MM/XR DEXA axial skeleton IMPRESSION: 1. DIAGNOSIS: Normal bone density based on the lowest T-score value of 0.1 in the femoral neck applying World Health Organization criteria. 2. 10-YEAR FRACTURE RISK PREDICTION, FRAX: Major osteoporotic fracture (clinical spine, forearm, hip or shoulder) 6.7%. Hip fracture 0.3%. 3. Treatment Recommendations: NOF guidelines recommend consideration for treatment in postmenopausal women and men age 50 and older presenting with the following: -A hip or vertebral (clinical or morphometric) fracture. -T-score less than or equal to -2.5 at the femoral neck or spine after appropriate evaluation to exclude secondary causes. -Low bone mass at the hip or spine and a 10-year fracture probability by FRAX of greater than or equal to 3% for hip fracture or greater than or equal to 20% for major osteoporotic fracture based on the [place] adapted WHO algorithm. 4. Other Recommendations: All treatment decisions require clinical judgment and consideration of individual patient factors, including patient preferences, comorbidities, previous drug use, risk factors not captured in the FRAX model (e.g. frailty, falls, vitamin D deficiency, increased bone turnover, interval significant decline in bone density) and possible under or overestimation of fracture risk by FRAX. FUTURE SCAN RECOMMENDATION: People with diagnosed cases of osteoporosis or at high risk for fracture should have regular bone mineral density tests. For patients eligible for Medicare, routine testing is allowed once every 2 years. The testing frequency can be increased to one year for patients who have rapidly progressing disease, those who are receiving or discontinuing medical therapy to restore bone mass, or have additional risk factors.
== END 2021-03-09 09:28 | disposition home or self-care (01) ==
LOC: HO.MAMMO 09:27
PROVIDERS: PCP Internal Medicine; Visit Provider Internal Medicine
DX: Z12.31 Encounter for screening mammogram for malignant neoplasm of breast (principal); Z13.820 Encounter for screening for osteoporosis; Z78.0 Asymptomatic menopausal state; M85.80 Other specified disorders of bone density and structure, unspecified site; M05.9 Rheumatoid arthritis with rheumatoid factor, unspecified; Z79.899 Other long term (current) drug therapy
CPT/HCPCS: 77063; 77067; 77080

== ENCOUNTER 2021-03-16 10:19 | Emergency (ER) | payer MEDICARE, SELFPAY ==
--- NOTE | ~2021-03-16 | XR_ITS ---
EXAMINATION: XR ANKLE, LEFT CLINICAL INFORMATION: Left ankle pain. COMPARISON: None TECHNIQUE: AP, lateral, and mortise views of the left ankle. FINDINGS: The bones and soft tissues are normal. No fracture. Alignment is anatomic. Joint spaces are maintained. No joint effusion. XR/XR ankle LT 2V IMPRESSION: Unremarkable left ankle.
[2021-03-16 10:26] VITALS: BP 153/84; PULSE 80; RESP 16; TEMP 36.4; O2SAT 97; BMI 31.2
--- NOTE | 2021-03-16 12:27 | ED_ITS ---
HPI - Extremity Injury (Lower) General Chief Complaint: Extremity Injury, Lower Stated Complaint: L ankle pain Time Seen by Provider: 03/16/21 12:03 Source: patient Mode of arrival: ambulatory Limitations: no limitations History of Present Illness HPI Narrative: 70-year-old female here with complaints of left ankle pain. Patient tells me about 2 weeks ago she was getting off a table after having a bone density test in cause and eversion injury to her left ankle. Since then the pain is occurring when the patient is weight-bearing. She denies any numbness, tingling, warmth, redness, fevers or chills. Patient uses a cane at home intermittently. She has been trying ice but having continued pain despite using supportive care at home. Related Data Home Medications Medication Instructions Recorded Confirmed latanoprost 0.005 % eye drops 1 drp OPHTHALMIC (EYE) DAILY 11/04/19 12/11/19 simvastatin 40 mg tablet 40 mg PO BEDTIME 11/04/19 11/27/19 betaxolol 0.25 % eye 1 drp OPHTHALMIC (EYE) DAILY 11/27/19 11/27/19 drops,suspension (Betoptic S) cholecalciferol (vitamin D3) 25 25 mcg PO DAILY 11/27/19 11/27/19 mcg (1,000 unit) capsule (Vitamin D3) valsartan 80 1 tab PO DAILY 11/27/19 11/27/19 mg-hydrochlorothiazide 12.5 mg tablet Previous Rx's Medication Instructions Recorded acetaminophen 325 mg tablet 650 mg PO Q6H PRN 30 Days #240 tab 12/12/19 aspirin 325 mg tablet 325 mg PO BID 14 Days #28 tab 12/12/19 docusate sodium 100 mg capsule 100 mg PO BID 30 Days #60 cap 12/12/19 scopolamine base 1 mg over 3 days 1.5 mg EAR-BEHIND Q72H 6 Days #4 ea 12/12/19 transdermal patch (Transderm-Scop 1.5 mg transdermal patch () amoxicillin 500 mg tablet 500 mg PO ONCE 1 Days #4 tab 01/20/20 oxycodone 5 mg tablet 5 mg PO Q8H PRN 7 Days #21 tab 02/11/20 hydrocodone 5 mg-acetaminophen 325 1 tab PO Q8H PRN #14 tab 10/06/20 mg tablet cyclobenzaprine 10 mg tablet 10 mg PO BID PRN #10 tab 10/12/20 Allergies Allergy/AdvReac Type Severity Reaction Status Date / Time skin prep Allergy Hives Uncoded 11/27/19 13:35 Review of Systems Review of Systems: Yes all other systems are reviewed and are negative Constitutional: Constitutional: Reports no additional constitutional complaints, Denies body ache(s), Denies chills, Denies fever(s), Denies headache(s) and Denies weakness Eyes: Eyes: Reports no additional eye complaints and Denies change in vision ENT: Reports system reviewed and no additional complaints, except as documented, Denies dizziness, Denies headache(s), Denies nasal congestion, Denies nasal discharge and Denies neck pain Cardiovascular: Cardiovascular: Reports no additional cardiovascular complaints, Denies chest pain, Denies leg edema and Denies dyspnea Respiratory: Respiratory: Reports no additional respiratory complaints, Denies cough and Denies dyspnea Gastrointestinal: Gastrointestinal: Reports no additional gastrointestinal complaints, Denies abdominal pain, Denies diarrhea, Denies nausea and Denies vomiting Genitourinary: Genitourinary: Reports no additional female genitourinary complaints and Denies urinary incontinence Musculoskeletal: Musculoskeletal: Reports no additional musculoskeletal complaints, Denies back pain, Reports arthralgias, Denies joint swelling, Denies neck pain, Denies numbness and Denies tingling Integumentary/Breasts: Skin/Breast: Reports system reviewed and no additional complaints, except as docu and Denies rash Neurologic: Reports system reviewed and no additional complaints, except as d ocumented, Denies Abnormal speech present, Denies dizziness, Denies headache(s), Denies numbness, Denies tingling and Denies weakness FOR[facility]LY [facility], [facility] Past Medical History Attestation statement: The following information was validated with the patient. Source: old records reviewed and nursing notes reviewed Medical History Glaucoma High cholesterol HTN (hypertension) Osteoarthritis of left knee Osteoarthritis of left knee Surgical History History of total knee arthroplasty Family History Family History Father No problems noted. Mother No problems noted. Sister Colon cancer Sister No problems noted. Brother No problems noted. Brother No problems noted. Son No problems noted. Daughter No problems noted. Social History Social History Are you a primary acute care nurse practitioner to a significant other at home: No Do you presently have visiting nurse or other home services: No Alcohol intake: never Second Hand Smoke Exposure: No Advance Directives: No Advance Directives Information Provided: No service: No Current occupational status: unemployed Physical Exam Vital Signs: Vital Signs: Last Vital Signs Temp 97.6 F 03/16/21 12:43 Pulse 71 03/16/21 12:43 Resp 16 03/16/21 12:43 BP 152/77 H 03/16/21 12:43 Pulse Ox 97 03/16/21 12:43 BMI result Body Mass Index 31.2 Const: General: cooperative, healthy appearing, comfortable and no acute distress Orientation/consciousness: patient oriented x3 Limitations: no limitations HENMT: Head: Yes normal to inspection Ears: hearing grossly normal bilaterally General nose exam: Normal external nose present Face and sinus: Yes normal facial exam Mouth: Normal oral and palatal mucosa present Throat: Yes posterior oropharynx normal Eyes: General: appearance normal, both eyes and all related structures Pupils: Equal, round and reactive pupils present Neck: Neck: Yes normal visual inspection Chest: Chest palpation & inspection: normal inspection of the chest Resp: Effort & Inspection: normal respiratory effort Auscultation: clear to auscultation bilaterally Cardio: Rate: regular rate Rhythm: regular rhythm Peripheral pulses: Peripheral pulses 2+ throughout GI: Inspection: Yes normal to inspection Palpation (GI): Soft to palpation and nontender Auscultation: normal bowel sounds Back/Spine/Pelvis: Thoracic/Lumbar Spine: thoracic and lumbar spine normal to inspection Skin: General skin exam: no rashes or lesions noted Neuro: General: patient oriented x3, no focal motor deficits and normal sensation to monofilament Cranial nerves: Yes Equal, round and reactive pupils present Cognition (Neuro): normal cognition Speech: No Abnormal speech present Gait exam (Neuro): Normal gait present Motor exam (neuro): 5/5 motor strength present throughout Extrem: Other: There is tenderness to the anterior left ankle and over along the lateral aspect with no swelling, ecchymosis or deformity noted. Neurovascularly intact distally. Full range of motion with no difficulty. Palpable distal pulses noted. Negative Valente test. No posterior calf pain. General: Yes normal to inspection Course Course Course Narrative: [age] year female here with reports of persistent left ankle pain x 2 weeks after an eversion injury to the ankle despite supportive care. X-rays show no bony abnormalities. Likely sprain. Will give aircast, recommend limit weight bearing and have f/u with orthopedics for persistent symptoms. MDM - Extremity Injury (Lower) Differential Diagnosis Differential diagnosis: Likely ankle sprain and strain and ankle fracture Medical Records Attestation: I reviewed the patient's medical records. Lab Data Attestation: I reviewed the patient's lab results. Imaging Data ankle x-ray: Attestation: I personally reviewed and interpreted this imaging study as follows: Radiologist's impression: [address] [address] XRay Report Signed Patient: Audra Aponte MR#: [id number] : 1950 Acct:[id number] Age/Sex: 70 / F ADM Date: 03/16/21 Loc: HO.ED Attending Dr: Ordering Physician: Generic ED Physician Date of Service: 03/16/21 Procedure(s): XR ankle LT 2V Accession Number(s): [id number] cc: Generic ED Physician~ EXAMINATION: XR ANKLE, LEFT CLINICAL INFORMATION: Left ankle pain.? COMPARISON: None? TECHNIQUE: AP, lateral, and mortise views of the left ankle. FINDINGS: The bones and soft tissues are normal. No fracture. Alignment is anatomic. Joint spaces are maintained. No joint effusion.? XR/XR ankle LT 2V IMPRESSION: Unremarkable left ankle. ECG Data Attestation: I personally reviewed and interpreted this ECG as follows: Procedures Procedure Narrative Procedure Narrative: aircast Discharge Plan Discharge Clinical Impression: Ankle sprain and strain Patient Disposition: Home, Self-Care Instructions: Ankle Sprain (DC) Additional Instructions: ice, elevation, try to limit weight-bearing with her cane and use the Aircast to help with pain Motrin or Tylenol if able as needed for pain Prescriptions: No Action amoxicillin 500 mg tablet 500 mg PO ONCE 1 Days Qty: 4 3RF Rx Instructions: Take 4 tabs 1 hours prior to dental procedure oxycodone 5 mg tablet 5 mg PO Q8H PRN (Reason: Pain, Moderate (Pain Scale 4-6) 7 Days Qty: 21 0RF valsartan-hydrochlorothiazide 80-12.5 mg tablet 1 tab PO DAILY 0RF Betoptic S 0.25 % Drops,Suspension 1 drp ophthalmic (eye) DAILY 0RF Rx Instructions: both eyes cholecalciferol (vitamin D3) [Vitamin D3] 25 mcg (1,000 unit) Capsule 25 mcg PO DAILY 0RF acetaminophen 325 mg Tablet 650 mg PO Q6H PRN (Reason: Pain, Mild (Pain Scale 1-3)) 30 Days Qty: 240 0RF aspirin 325 mg Tablet 325 mg PO BID 14 Days Qty: 28 0RF docusate sodium 100 mg Capsule 100 mg PO BID 30 Days Qty: 60 0RF scopolamine base [Transderm-Scop] 1 mg over 3 days Patch 3 Day 1.5 mg EAR-BEHIND Q72H 6 Days Qty: 4 0RF cyclobenzaprine 10 mg tablet 10 mg PO BID PRN (Reason: muscle spasm) Qty: 10 0RF hydrocodone-acetaminophen 5-325 mg tablet 1 tab PO Q8H PRN (Reason: pain) Qty: 14 0RF Rx Instructions: Can be partially filled if patient request latanoprost 0.005 % drops 1 drp ophthalmic (eye) DAILY 0RF simvastatin 40 mg tablet 40 mg PO BEDTIME 0RF Referrals: J Carlos Hassna MD [Physician] - 1 week (if no better) Interventions: ED Discharge Assessment Last Done: 03/16/21 12:54 Discharge Date/Time: 03/16/21 12:55
[2021-03-16 12:43] VITALS: BP 152/77; PULSE 71; RESP 16; TEMP 36.4; O2SAT 97
== END 2021-03-16 12:55 | disposition home or self-care (01) ==
PROVIDERS: Emergency Provider Emergency Medicine; PCP Internal Medicine
DX: M25.572 Pain in left ankle and joints of left foot (principal); Z79.899 Other long term (current) drug therapy
CPT/HCPCS: 73600; 99283; 99284

== ENCOUNTER 2021-04-13 11:20 | Outpatient (REF) | payer MEDICARE, SELFPAY ==
--- NOTE | ~2021-04-13 | MM_ITS ---
EXAMINATION: MM DIAGNOSTIC DIGITAL BREAST TOMOSYNTHESIS, LEFT CLINICAL INFORMATION: Recall for question of asymmetric density mid upper left breast. No CC correlate. COMPARISON: Mammography: 03/09/2021, 04/18/2019 TECHNIQUE: Digital breast tomosynthesis is performed. 2D images are generated from the tomosynthesis. The following views are obtained: Spot MLO, standard ML. FINDINGS: The breasts are almost entirely fatty (ACR BI-RADS breast composition Category a). Additional views show normal overlapping stromal markings without mass or architectural abnormality. No developing density. Results are discussed with the patient at time of visit. MM/MM tomosynthesis added views L IMPRESSION: Additional views are unremarkable. ASSESSMENT: BI-RADS 2: Benign RECOMMENDATION: Routine annual mammography screening. This patient's information was entered into a reminder system with a target due date for their next mammogram.
== END 2021-04-13 11:21 | disposition home or self-care (01) ==
LOC: HO.MAMMO 11:20
PROVIDERS: PCP Internal Medicine; Visit Provider Internal Medicine
DX: R92.2 Inconclusive mammogram (principal)
CPT/HCPCS: 77061; 77065

== ENCOUNTER 2021-04-19 10:30 | Outpatient (REF) | payer MEDICARE, SELFPAY ==
[2021-04-19 11:00] LABS: Imm Gran Abs Auto 0.03 X10*3/uL (0.00-0.03); Imm Gran Pct Auto 0.3 % (0.0-0.4); MANUAL DIFF FLAG SCAN; Red Cell Distribution Width 13.1 % (11.0-16.0); SCAN SMEAR FLAG 1
[2021-04-19 11:01] LABS: Appearance Urine CLEAR; Color Urine YELLOW; Glucose Urine UA NEG (NEG); Leukocyte Esterase Urine 1+ (NEG); Nitrite Urine NEG (NEG); Urine Blood NEG (NEG); Urine Ketones NEG (NEG); Urine Protein NEG (NEG-TRACE)
[2021-04-19 11:03] LABS: Basophils Percent Auto 0.3 % (0-2); Eosinophils Absolute Auto 0.2 X10*3/uL (0.0-0.4); Eosinophils Percent Auto 1.7 % (0-4); Hematocrit 44.7 % (37.0-47.0); Lymphocytes Absolute Auto 2.1 X10*3/uL (1.2-4.9); Lymphocytes Percent Auto 23.3 % (20-40); Mean Corpuscular HGB Conc 31.3 g/dl (31.0-35.0); Mean Corpuscular Hemoglobin 28.6 pg (27.0-33.0); Mean Corpuscular Volume 91.4 fL (80.0-98.0); Monocytes Absolute Auto 0.6 X10*3/uL (0.1-1.2); Monocytes Percent Auto 6.9 % (2-11); Neutrophils Percent Auto 67.5 % (45-73); PLT CLUMP 1; Red Blood Count 4.89 X10*6/uL (4.20-5.50)
[2021-04-19 11:06] LABS: PLT ABN DIST 1
[2021-04-19 11:13] LABS: Alanine Aminotransferase 23 U/L (0-31); Albumin Level 4.3 g/dL (3.5-5.0); Alkaline Phosphatase 57 U/L (39-117); Anion Gap 13 (12-20); Aspartate Amino Transferase 23 U/L (5-31); Bilirubin Total 0.4 mg/dL (0.0-1.0); Blood Urea Nitrogen 22 mg/dL (9-16); Calcium 9.8 mg/dL (8.4-10.2); Carbon Dioxide 33 mmol/L (22-29); Chloride 99 mmol/L (96-108); Cholesterol 194 mg/dL; Estimated Glomerular Filt Rate > 60; Glucose Fasting 123 mg/dL (60-99); HDL Cholesterol 73 mg/dL; LDL Cholesterol Calculated 97 mg/dl; Sodium 141 mmol/L (135-145); Total Protein 6.9 g/dL (6.5-8.0); Triglycerides 122 mg/dL
[2021-04-19 11:17] LABS: Estimated Average Glucose 126 mg/dL
[2021-04-19 11:30] LABS: White Blood Count 8.9 X10*3/uL (4.8-10.8)
[2021-04-19 11:32] LABS: SLIDE REVIEW VERIFIED
[2021-04-19 11:36] LABS: Bacteria Urine TRACE /LPF; RBC Urine 0 /HPF (0); Squamous Epithelial Cell Urine 2+ /LPF
== END 2021-04-19 10:31 | disposition home or self-care (01) ==
LOC: HO.LNP 10:30
PROVIDERS: PCP Internal Medicine; Visit Provider Internal Medicine
DX: Z00.00 Encounter for general adult medical examination without abnormal findings (principal); I10 Essential (primary) hypertension; E78.00 Pure hypercholesterolemia, unspecified; R73.03 Prediabetes
CPT/HCPCS: 80053; 80061; 81001; 81003; 83036; 85025

== ENCOUNTER 2021-04-26 12:43 | Outpatient (REF) | payer MEDICARE, SELFPAY ==
[2021-04-26 13:32] LABS: Platelet Count (Citrate) 248 X10*3/uL (150-310)
== END 2021-04-26 12:44 | disposition home or self-care (01) ==
LOC: HO.10HDLNP 12:43
PROVIDERS: Visit Provider Internal Medicine
DX: Z13.89 Encounter for screening for other disorder (principal)

== ENCOUNTER 2021-10-22 06:24 | Outpatient (REF) | payer MEDICARE, SELFPAY ==
[2021-10-22 07:22] LABS: Estimated Average Glucose 123 mg/dL; Hemoglobin A1C 151.2832 umol/L; Hemoglobin A1c % 5.9 %
[2021-10-22 07:48] LABS: Alanine Aminotransferase 27 U/L (0-31); Albumin Level 4.3 g/dL (3.5-5.0); Alkaline Phosphatase 66 U/L (39-117); Aspartate Amino Transferase 23 U/L (5-31); Bilirubin Direct 0.2 mg/dL (0.0-0.5); Bilirubin Total 0.3 mg/dL (0.0-1.0); Cholesterol 231 mg/dL; Glucose Fasting 108 mg/dL (60-99); HDL Cholesterol 89 mg/dL; LDL Cholesterol Calculated 124 mg/dl; Total Protein 7.1 g/dL (6.5-8.0); Triglycerides 94 mg/dL
[2021-10-22 07:56] LABS: Reflex LDLD? No
== END 2021-10-22 06:25 | disposition home or self-care (01) ==
LOC: HO.LAB 06:24
PROVIDERS: PCP Internal Medicine; Visit Provider Internal Medicine
DX: E78.00 Pure hypercholesterolemia, unspecified (principal); R73.03 Prediabetes
CPT/HCPCS: 36415; 80061; 80076; 82947; 83036

== ENCOUNTER 2021-12-14 14:12 | Outpatient (REF) | payer MEDICARE, SELFPAY ==
--- NOTE | ~2021-12-14 | US_ITS ---
EXAMINATION: ULTRASOUND EXTREMITY NONVASCULAR. CLINICAL INFORMATION: Localized swelling, mass and lump, left lower limb. COMPARISON: None TECHNIQUE: Routine grayscale imaging of the left medially calculi lump was performed. FINDINGS: There is a well-defined hypoechoic lesion measuring 0.9 x 0.6 x 0.5 cm along the left medial calcaneus. There is no increased vascularity. There is no adjacent free fluid. US/US extremity nonvascular IMPRESSION: Hyperechoic lesion along the left medial calcaneus likely small hematoma given the acute presentation. No increased vascularity.
== END 2021-12-14 14:13 | disposition home or self-care (01) ==
LOC: HO.US 14:12
PROVIDERS: PCP Internal Medicine; Visit Provider Internal Medicine
DX: R22.42 Localized swelling, mass and lump, left lower limb (principal)
CPT/HCPCS: 76882

== ENCOUNTER 2022-01-27 10:47 | Outpatient (REF) | payer MEDICARE, SELFPAY ==
[2022-01-27 11:49] LABS: Estimated Average Glucose 120 mg/dL; Hemoglobin A1c % 5.8 %
[2022-01-27 12:03] LABS: Alanine Aminotransferase 20 U/L (0-31); Albumin Level 4.3 g/dL (3.5-5.0); Alkaline Phosphatase 63 U/L (39-117); Aspartate Amino Transferase 20 U/L (5-31); Bilirubin Direct 0.2 mg/dL (0.0-0.5); Bilirubin Total 0.4 mg/dL (0.0-1.0); Cholesterol 200 mg/dL; Glucose Fasting 98 mg/dL (60-99); HDL Cholesterol 81 mg/dL; LDL Cholesterol Calculated 95 mg/dl; Total Protein 6.9 g/dL (6.5-8.0); Triglycerides 121 mg/dL
[2022-01-27 12:54] LABS: Reflex LDLD? No
== END 2022-01-27 10:48 | disposition home or self-care (01) ==
LOC: HO.LNP 10:47
PROVIDERS: Visit Provider Internal Medicine
DX: R73.03 Prediabetes (principal); E78.00 Pure hypercholesterolemia, unspecified
CPT/HCPCS: 80061; 80076; 82947; 83036

== ENCOUNTER 2022-04-14 11:36 | Outpatient (REF) | payer MEDICARE, SELFPAY ==
--- NOTE | ~2022-04-14 | MM_ITS ---
EXAMINATION: MM SCREENING DIGITAL BREAST TOMOSYNTHESIS, BILATERAL CLINICAL INFORMATION: Screening. Asymptomatic. The lifetime risk of breast cancer based on the Tyrer-Cuzick Model is 5.8%. COMPARISON: Mammography: April 13, 2021 and studies dating back to April 18, 2019 TECHNIQUE: Digital breast tomosynthesis is performed in both the craniocaudal and mediolateral oblique views along with computer-aided detection (CAD). Synthesized 2D images are generated from the tomosynthesis. FINDINGS: There are scattered areas of fibroglandular density (ACR BI-RADS breast composition Category b). There are no significant masses, abnormal calcifications, or other abnormalities. MM/MM tomosynthesis screening BI IMPRESSION: No significant changes from prior exam. ASSESSMENT: BI-RADS 1: Negative RECOMMENDATION: Routine annual mammography screening. This patient's information was entered into a reminder system with a target due date for their next mammogram.
== END 2022-04-14 11:37 | disposition home or self-care (01) ==
LOC: HO.MAMMO 11:36
PROVIDERS: Visit Provider Internal Medicine
DX: Z12.31 Encounter for screening mammogram for malignant neoplasm of breast (principal)
CPT/HCPCS: 77063; 77067

== ENCOUNTER 2022-04-22 10:46 | Outpatient (REF) | payer MEDICARE, SELFPAY ==
[2022-04-22 10:50] LABS: MANUAL DIFF FLAG NO
[2022-04-22 11:38] LABS: Basophils Percent Auto 0.4 % (0-2); Eosinophils Absolute Auto 0.1 X10*3/uL (0.0-0.4); Eosinophils Percent Auto 1.7 % (0-4); Hematocrit 40.7 % (37.0-47.0); Imm Gran Abs Auto 0.02 X10*3/uL (0.00-0.03); Imm Gran Pct Auto 0.2 % (0.0-0.4); Lymphocytes Percent Auto 23.9 % (20-40); Mean Corpuscular HGB Conc 31.9 g/dl (31.0-35.0); Mean Corpuscular Hemoglobin 29.2 pg (27.0-33.0); Mean Corpuscular Volume 91.5 fL (80.0-98.0); Mean Platelet Volume 12.4 fL (9.4-12.3); Monocytes Absolute Auto 0.5 X10*3/uL (0.1-1.2); Monocytes Percent Auto 6.2 % (2-11); Neutrophils Absolute Auto 5.6 x10*3/uL (2.0-8.3); Neutrophils Percent Auto 67.6 % (45-73); Platelet Count 208 X10*3/uL (160-400); Red Blood Count 4.45 X10*6/uL (4.20-5.50); Red Cell Distribution Width 13.3 % (11.0-16.0); White Blood Count 8.3 X10*3/uL (4.8-10.8)
[2022-04-22 11:52] LABS: Estimated Average Glucose 123 mg/dL; Hemoglobin A1c % 5.9 %
[2022-04-22 12:01] LABS: Alanine Aminotransferase 25 U/L (0-31); Albumin Level 4.1 g/dL (3.5-5.0); Alkaline Phosphatase 64 U/L (39-117); Anion Gap 10 (12-20); Aspartate Amino Transferase 21 U/L (5-31); Bilirubin Total 0.5 mg/dL (0.0-1.0); Blood Urea Nitrogen 23 mg/dL (9-16); Calcium 9.1 mg/dL (8.4-10.2); Carbon Dioxide 31 mmol/L (22-29); Chloride 104 mmol/L (96-108); Cholesterol 182 mg/dL; Estimated Glomerular Filt Rate > 60; Glucose Fasting 99 mg/dL (60-99); HDL Cholesterol 81 mg/dL; LDL Cholesterol Calculated 86 mg/dl; Sodium 141 mmol/L (135-145); Total Protein 6.4 g/dL (6.5-8.0); Triglycerides 75 mg/dL
== END 2022-04-22 10:47 | disposition home or self-care (01) ==
LOC: HO.LNP 10:46
PROVIDERS: Visit Provider Internal Medicine
DX: Z00.00 Encounter for general adult medical examination without abnormal findings (principal); E78.00 Pure hypercholesterolemia, unspecified; I10 Essential (primary) hypertension; D69.6 Thrombocytopenia, unspecified; R73.03 Prediabetes
CPT/HCPCS: 80053; 80061; 83036; 85025

== ENCOUNTER 2022-04-29 11:24 | Outpatient (REF) | payer MEDICARE, SELFPAY ==
[2022-04-29 12:15] LABS: Bacteria Urine None Seen (None Seen); Hyaline Casts Urine 0-2 /LPF (0-2); RBC Urine 0-2 /HPF (0-2); WBC Urine 0-5 /HPF (0-5)
[2022-04-29 12:25] LABS: Appearance Urine Clear; Color Urine Yellow; Glucose Urine UA Negative (Negative); Leukocyte Esterase Urine Negative (Negative); Nitrite Urine Negative (Negative); PH 5.5 (5.0-9.0); Urine Blood Negative (Negative); Urine Ketones Negative (Negative); Urine Protein Negative (Neg-Trace)
[2022-04-29 12:45] LABS: Creatinine Urine 58.66 mg/dL; Microalbum/Creatinine Ratio Ur 18.7 ug/mg cr
== END 2022-04-29 11:25 | disposition home or self-care (01) ==
LOC: HO.LNP 11:24
PROVIDERS: Visit Provider Internal Medicine
DX: I10 Essential (primary) hypertension (principal); R73.03 Prediabetes
CPT/HCPCS: 81001; 82043

== ENCOUNTER 2022-05-05 09:01 | Outpatient (REF) | payer MEDICARE, SELFPAY ==
--- NOTE | ~2022-05-05 | XR_ITS ---
EXAMINATION: XR KNEES BILATERAL XR LEFT KNEE LATERAL CLINICAL INDICATION: Pain right knee, pain in right left knee. TECHNIQUE: Standing view both knees with 2 additional views left knee. FINDINGS: A left total knee prosthesis is present. Prosthetic components are in good position. No fractures are seen no joint effusion is present. On the right, degenerative changes are seen with marked narrowing in the medial compartment with osteophytes and sclerosis. Osteophytes are also present arising from the lateral femoral condyle and lateral tibial plateau. No fractures are seen on the limited views. Right patellofemoral joint difficult to assess with only AP view. XR/XR knee LT 2V IMPRESSION: Left total knee prosthesis in good position. Degenerative changes right knee most marked in the medial compartment.
--- NOTE | ~2022-05-05 | XR_ITS ---
EXAMINATION: XR KNEES BILATERAL XR LEFT KNEE LATERAL CLINICAL INDICATION: Pain right knee, pain in right left knee. TECHNIQUE: Standing view both knees with 2 additional views left knee. FINDINGS: A left total knee prosthesis is present. Prosthetic components are in good position. No fractures are seen no joint effusion is present. On the right, degenerative changes are seen with marked narrowing in the medial compartment with osteophytes and sclerosis. Osteophytes are also present arising from the lateral femoral condyle and lateral tibial plateau. No fractures are seen on the limited views. Right patellofemoral joint difficult to assess with only AP view. XR/XR knee standing BI IMPRESSION: Left total knee prosthesis in good position. Degenerative changes right knee most marked in the medial compartment.
== END 2022-05-05 09:02 | disposition home or self-care (01) ==
LOC: HO.HOSX 09:01
PROVIDERS: PCP Internal Medicine; Visit Provider Physician Assistant
DX: M25.561 Pain in right knee (principal); Z96.652 Presence of left artificial knee joint
CPT/HCPCS: 73560; 73565; 99212

== ENCOUNTER 2022-10-21 11:53 | Outpatient (REF) | payer MEDICARE, SELFPAY ==
[2022-10-21 12:23] LABS: Cholesterol 192 mg/dL (<200); HDL Cholesterol 87 mg/dL (>40); LDL Cholesterol Calculated 87 mg/dL (<100); Triglycerides 91 mg/dL (<150)
[2022-10-21 12:24] LABS: Estimated Average Glucose 114 mg/dL; Hemoglobin A1c % 5.6 % (<6.0)
[2022-10-21 12:52] LABS: Alanine Aminotransferase 21 U/L (0-31); Albumin Level 4.3 g/dL (3.5-5.0); Alkaline Phosphatase 60 U/L (39-117); Aspartate Amino Transferase 21 U/L (5-31); Bilirubin Direct 0.2 mg/dL (0.0-0.5); Bilirubin Total 0.3 mg/dL (0.0-1.0); Glucose Fasting 104 mg/dL (60-99)
[2022-10-21 16:25] LABS: Reflex LDLD? No
== END 2022-10-21 11:54 | disposition home or self-care (01) ==
LOC: HO.LNP 11:53
PROVIDERS: Visit Provider Internal Medicine
DX: E78.00 Pure hypercholesterolemia, unspecified (principal); R73.03 Prediabetes
CPT/HCPCS: 80061; 80076; 82947; 83036

== ENCOUNTER 2023-04-20 07:13 | Outpatient (REF) | payer MEDICARE, SELFPAY ==
--- NOTE | ~2023-04-20 | MM_ITS ---
EXAMINATION: MM SCREENING DIGITAL BREAST TOMOSYNTHESIS, BILATERAL CLINICAL INFORMATION: Screening. Asymptomatic. COMPARISON: Mammography: 04/14/2022, 04/13/2021, 03/09/2021, 04/18/2019. TECHNIQUE: Digital breast tomosynthesis is performed in both the craniocaudal and mediolateral oblique views along with computer-aided detection (CAD). Synthesized 2D images are generated from the tomosynthesis. FINDINGS: The breasts are almost entirely fatty (ACR BI-RADS breast composition Category a). There are scattered benign bilateral dystrophic calcifications. There are mild vascular calcifications bilaterally. There are no suspicious masses, suspicious grouped calcifications, or areas of architectural distortion in either breast. The parenchymal pattern is stable from prior exams. There are no skin or axillary abnormalities. MM/MM tomosynthesis screening BI IMPRESSION: No mammographic evidence of malignancy. ASSESSMENT: BI-RADS BI-RADS 2 - Benign Findings RECOMMENDATION: Routine annual mammography screening. 1 year F/U This examination should not preclude the clinical evaluation of a suspicious palpable abnormality. This patient's information was entered into a reminder system with a target due date for their next mammogram.
== END 2023-04-20 07:14 | disposition home or self-care (01) ==
LOC: HO.MAMMO 07:13
PROVIDERS: PCP Internal Medicine; Visit Provider Internal Medicine
DX: Z12.31 Encounter for screening mammogram for malignant neoplasm of breast (principal)
CPT/HCPCS: 77063; 77067

== ENCOUNTER → 2023-04-20 07:30 | Outpatient (BNV) | payer MEDICARE, SELFPAY | PROVIDERS: PCP Internal Medicine; Visit Provider Radiology Diagnostic Radiology | DX: Z12.31 Encounter for screening mammogram for malignant neoplasm of breast (principal) | CPT/HCPCS: 77063; 77067 ==

== ENCOUNTER 2023-04-25 11:00 | Outpatient (REF) | payer MEDICARE, SELFPAY ==
[2023-04-25 11:07] LABS: MANUAL DIFF FLAG NO
[2023-04-25 11:37] LABS: Basophils Percent Auto 0.3 % (0-2); Eosinophils Absolute Auto 0.1 X10*3/uL (0.0-0.4); Eosinophils Percent Auto 1.5 % (0-4); Hematocrit 42.4 % (37.0-47.0); Hemoglobin 13.8 g/dl (12.0-16.0); Imm Gran Abs Auto 0.03 X10*3/uL (0.00-0.03); Imm Gran Pct Auto 0.3 % (0.0-0.4); Lymphocytes Absolute Auto 2.4 X10*3/uL (1.2-4.9); Lymphocytes Percent Auto 27.3 % (20-40); Mean Corpuscular HGB Conc 32.5 g/dl (31.0-35.0); Mean Corpuscular Hemoglobin 30.1 pg (27.0-33.0); Mean Corpuscular Volume 92.6 fL (80.0-98.0); Mean Platelet Volume 11.8 fL (9.4-12.3); Monocytes Absolute Auto 0.7 X10*3/uL (0.1-1.2); Monocytes Percent Auto 8.2 % (2-11); Neutrophils Absolute Auto 5.5 x10*3/uL (2.0-8.3); Neutrophils Percent Auto 62.4 % (45-73); Platelet Count 218 X10*3/uL (160-400); Red Blood Count 4.58 X10*6/uL (4.20-5.50); Red Cell Distribution Width 13.1 % (11.0-16.0); White Blood Count 8.9 X10*3/uL (4.8-10.8)
[2023-04-25 11:50] LABS: Estimated Average Glucose 120 mg/dL; Hemoglobin A1c % 5.8 % (<6.0)
[2023-04-25 12:27] LABS: Appearance Urine Clear; Color Urine Yellow; Glucose Urine UA Negative (Negative); Leukocyte Esterase Urine Moderate (2+) (Negative); Nitrite Urine Negative (Negative); PH 6.5 (5.0-9.0); Specific Gravity - Urine 1.015 (1.005-1.025); UMIC TRIGGER UACC YES; Urine Blood Negative (Negative); Urine Ketones Negative (Negative); Urine Protein Negative (Neg-Trace)
[2023-04-25 12:43] LABS: Alanine Aminotransferase 19 U/L (0-31); Albumin Level 4.2 g/dL (3.5-5.0); Alkaline Phosphatase 71 U/L (39-117); Anion Gap 10 (12-20); Aspartate Amino Transferase 18 U/L (5-31); Bilirubin Total 0.3 mg/dL (0.0-1.0); Blood Urea Nitrogen 18 mg/dL (9-16); Carbon Dioxide 33 mmol/L (22-29); Chloride 101 mmol/L (96-108); Cholesterol 187 mg/dL (<200); Estimated Glomerular Filt Rate > 60; Glucose Fasting 102 mg/dL (60-99); HDL Cholesterol 97 mg/dL (>40); LDL Cholesterol Calculated 74 mg/dL (<100); Potassium 3.4 mmol/L (3.3-5.1); Sodium 141 mmol/L (135-145); Total Protein 7.3 g/dL (6.5-8.0); Triglycerides 82 mg/dL (<150)
[2023-04-25 13:10] LABS: Creatinine Urine 56.08 mg/dL; Microalbum/Creatinine Ratio Ur 58.8 ug/mg cr (<30)
[2023-04-25 13:17] LABS: Bacteria Urine None Seen (None Seen); RBC Urine 0-2 /HPF (0-2); Squamous Epithelial Cell Urine 0-2 /HPF (0-2); WBC Urine 0-5 /HPF (0-5)
[2023-04-25 13:18] LABS: Hyaline Casts Urine 0-2 /LPF (0-2)
[2023-04-25 16:02] LABS: Reflex LDLD? No
== END 2023-04-25 11:01 | disposition home or self-care (01) ==
LOC: HO.LNP 11:00
PROVIDERS: Visit Provider Internal Medicine
DX: Z00.00 Encounter for general adult medical examination without abnormal findings (principal); I10 Essential (primary) hypertension; E78.00 Pure hypercholesterolemia, unspecified; R73.03 Prediabetes; D69.6 Thrombocytopenia, unspecified
CPT/HCPCS: 80053; 80061; 81001; 82043; 82570; 83036; 85025

== ENCOUNTER 2023-05-08 13:56 | Outpatient (AMB) | payer MEDICARE, SELFPAY ==
--- NOTE | 2023-05-08 15:34 | MHC.OFFVIS ---
Intake Vital Signs 05/08/23 15:40 Weight 158 lb Intake Visit Reasons: Abnormal papilloma of right shoulder Intake Note: This patient was referred by Dr. Bray for an assessment for abnormal papilloma of right shoulder. Patient c/o; reports increasing in size, reports has had this for many years. Representative Required: No Accompanied by: Self / Same As Patient Allergies skin prep Allergy (Uncoded 05/08/23 15:41) Hives Medication List - Last Reconciled 05/08/23 by Reymundo Maldonado MD amoxicillin 500 mg PO ONCE 1 day betaxolol 0.25% (Betoptic S) 1 drp ophthalmic (eye) DAILY cholecalciferol (vitamin D3) (Vitamin D3) 25 mcg PO DAILY docusate sodium 100 mg PO BID 30 days ibuprofen 600 mg PO Q6H PRN latanoprost 0.005% 1 drp ophthalmic (eye) DAILY rosuvastatin 20 mg PO DAILY scopolamine base (Transderm-Scop) 1.5 mg EAR-BEHIND Q72H 6 days simvastatin 40 mg PO BEDTIME timolol maleate 0.5% 1 drp ophthalmic (eye) DAILY valsartan-hydrochlorothiazide 80-12.5 mg 1 tab PO DAILY HPI Abnormal papilloma of right shoulder HPI Details [age] year old female referred for 2 skin lesions on the right side of the neck anteriorly. She said that she has had this for about 10 years now. She feels that this has increased in size a little bit although slowly. She says that she wants this excised as this bothers her now especially when she is will looking at the mirror and with the increased in size. She denies any discharge. [facility] Medical History (Updated 05/08/23 @ 15:48 by Reymundo Maldonado MD) Skin lesion of neck Osteoarthritis of left knee Glaucoma High cholesterol HTN (hypertension) Osteoarthritis of left knee Surgical History History of total knee arthroplasty Family History Father No problems noted. Mother No problems noted. Sister Colon cancer Sister No problems noted. Brother No problems noted. Brother No problems noted. Son No problems noted. Daughter No problems noted. Social History Are you a primary care transition coordinator to a significant other at home: No Do you presently have visiting nurse or other home services: No Alcohol intake: never Comment: sleeping Second Hand Smoke Exposure: No service: No Current occupational status: unemployed Review of Systems Const Denies chills and Denies fever(s) Card Denies chest pain, Denies dyspnea and Denies dyspnea on exertion Resp Denies cough, Denies dyspnea and Denies dyspnea on exertion GI Denies hematochezia and Denies change in bowel habits Denies hematuria Musc Denies back pain and Denies limited range of motion Neuro Denies focal weakness and Denies convulsions Psych Denies depression and Denies mood swings Physical Exam Const General: comfortable and no acute distress Orientation/consciousness: patient oriented x3 Neck Other: At the base of the right neck anteriorly is note of 2 skin lesions. One is about 5 mm in diameter, pigmented, well-defined, on the anterior base of the neck on the right. The 2nd 1 is about 2-3 mm, on the lateral base of the neck on the right side as well. This also pigmented but well-defined Neck: Yes no lymphadenopathy Resp Auscultation: clear to auscultation bilaterally Cardio Rhythm: regular rhythm GI Palpation (GI): Soft to palpation, nontender and no guarding Neuro General: patient oriented x3 Assessment & Plan Assessment & Plan (1) Skin lesion of neck: Code(s): L98.9 - Disorder of the skin and subcutaneous tissue, unspecified Plan: She has 2 skin lesions of the neck as described above. These both appear to be dry. She wants these removed. I explained the technique of excision under local anesthesia. I reviewed the risks including but not limited to bleeding and infections, as well as the benefits and alternatives. She understands and wants to proceed. This will be done on her next visit here in the office. Coding Level of Care Code New Pt Level 3 (35777) Diagnoses Skin lesion of neck L98.9
== END 2023-05-08 15:51 | disposition home or self-care (01) ==
PROVIDERS: PCP Internal Medicine; Referring Provider Internal Medicine; Visit Provider Surgery
DX: L98.9 Disorder of the skin and subcutaneous tissue, unspecified (principal)
CPT/HCPCS: 99203

== ENCOUNTER → 2023-05-08 13:56 | Outpatient (BNVA) | payer MEDICARE, SELFPAY | PROVIDERS: PCP Internal Medicine; Referring Provider Internal Medicine; Visit Provider Surgery | DX: L98.9 Disorder of the skin and subcutaneous tissue, unspecified (principal) | CPT/HCPCS: 99202 ==

== ENCOUNTER 2023-05-18 10:50 | Outpatient (REF) | payer MEDICARE, SELFPAY | END 2023-05-18 10:51 | disposition home or self-care (01) | LOC: HO.LNP 10:50 | PROVIDERS: PCP Internal Medicine; Visit Provider Surgery | DX: L98.9 Disorder of the skin and subcutaneous tissue, unspecified (principal) | CPT/HCPCS: 11422; 11421; 88305 ==

== ENCOUNTER 2023-05-18 10:50 | Outpatient (AMB) | payer MEDICARE, SELFPAY ==
--- NOTE | 2023-05-18 11:07 | A.OFFVIS_ITS ---
Intake Intake Visit Reasons: Excision of skin lesion x2 right neck Intake Note: In office procedure: Excision of skin lesion x2 right neck. Pt c/o; reports no complaints. Medical Billing Assistant Required: No Accompanied by: Self / Same As Patient Allergies skin prep Allergy (Uncoded 05/18/23 11:08) Hives HPI Excision of skin lesion x2 right neck HPI Details She is here for excision of 2 skin lesions on the right. [facility] Medical History Skin lesion of neck Osteoarthritis of left knee Glaucoma High cholesterol HTN (hypertension) Osteoarthritis of left knee Surgical History History of excision of lesion (~05/08/23) History of total knee arthroplasty Family History Father No problems noted. Mother No problems noted. Sister Colon cancer Sister No problems noted. Brother No problems noted. Brother No problems noted. Son No problems noted. Daughter No problems noted. Social History Are you a primary medicare nurse to a significant other at home: No Do you presently have visiting nurse or other home services: No Alcohol intake: never Comment: sleeping Second Hand Smoke Exposure: No service: No Current occupational status: unemployed Office Procedures Excision Details: She was placed in reclining position. She had signed consent. There were 2 lesions on the right neck. One was more anterior, about 7 mm in size, pigmented, well-defined and elevated. There was a smaller lesion more lateral to this, about 4 mm in size. This area was prepped and draped. Lidocaine 1% was used for local and anesthesia. I made an incision around this more anterior lesion 1st using blade 15. And this carried down through the full-thickness of the skin subcutaneous fat to excise this entire lesion. This was closed with full-thickness nylon 3-0 interrupted sutures I then infiltrated this 2nd incision which was smaller and more laterally. I made an elliptical incision around this a blade 15. I excised with full- thickness of the skin and closed the incision with full-thickness nylon 3-0 interrupted sutures Dressings were applied. The procedure was completed. She tolerated the procedure well. There were no immediate complications. There was minimal blood loss. 95304-[id number] scalp/neck/hands/feet/genitalia 1.1cm-2cm Procedure code (CPT) selection complete Assessment & Plan Assessment & Plan (1) Skin lesion of neck: Code(s): L98.9 - Disorder of the skin and subcutaneous tissue, unspecified Plan: Two skin lesions were removed. She was given wound care instructions. She will be seen for removal of the sutures. Coding Level of Care Code Procedure Only Diagnoses Skin lesion of neck L98.9 CPT Codes Scalp/Neck/Hands/Feet/Genetalia - CPT: 38653-Twjdkkiy scalp/neck/hands/feet/genitalia 1.1cm-2cm ([id number])
== END 2023-05-18 11:49 | disposition home or self-care (01) ==
PROVIDERS: PCP Internal Medicine; Visit Provider Surgery
DX: L82.1 Other seborrheic keratosis (principal)
CPT/HCPCS: 11421

== ENCOUNTER 2023-05-31 08:57 | Outpatient (AMB) | payer MEDICARE, SELFPAY ==
[2023-05-31 09:11] VITALS: BP 126/71; PULSE 92; BMI 30.1
--- NOTE | 2023-05-31 09:11 | MHC.OFFVIS ---
Vital Signs 05/31/23 09:11 Height 5 ft Weight 154 lb 2 oz BMI 30.1 BP 126/71 Blood Pressure Location Lt brachial Position Sitting Pulse 92 Intake Visit Reasons: s/p excision of skin lesion x2 right neck Intake Note: This patient presents for a follow-up assessment status post excision of skin lesion x2 right neck. Pt c/o; denies any concerns at the time of visit Nursing Home Manager Required: No Accompanied by: Self / Same As Patient Allergies skin prep Allergy (Uncoded 05/31/23 09:12) Hives HPI HPI s/p excision of skin lesion x2 right neck: Details: She underwent excision of 2 skin lesions from the neck last 05/18/2023. She tolerated the procedure well. She currently denies significant complaints. [facility] Medical History Skin lesion of neck Osteoarthritis of left knee Glaucoma High cholesterol HTN (hypertension) Osteoarthritis of left knee Surgical History History of excision of lesion (~05/18/23) History of total knee arthroplasty Family History Father No problems noted. Mother No problems noted. Sister Colon cancer Sister No problems noted. Brother No problems noted. Brother No problems noted. Son No problems noted. Daughter No problems noted. Social History Are you a primary personal care attendant to a significant other at home: No Do you presently have visiting nurse or other home services: No Alcohol intake: never Comment: sleeping Second Hand Smoke Exposure: No service: No Current occupational status: unemployed Review of Systems Const Denies chills and Denies fever(s) Card Denies chest pain, Denies dyspnea and Denies dyspnea on exertion Resp Denies cough, Denies dyspnea and Denies dyspnea on exertion GI Denies hematochezia and Denies change in bowel habits Denies hematuria Musc Denies back pain and Denies limited range of motion Neuro Denies focal weakness and Denies convulsions Psych Denies depression and Denies mood swings Physical Exam Const General: comfortable and no acute distress Neck Other: Excision sites on the neck have healed well, no evidence of infection Assessment & Plan Assessment & Plan (1) Skin lesion of neck: Code(s): L98.9 - Disorder of the skin and subcutaneous tissue, unspecified Category: Medical Plan: Status post excision. Her path report shows seborrheic keratosis. The incision sites are well healed. Sutures were removed. She can follow up on a p.r.n. basis. Coding Level of Care Code Global (25312) Diagnoses Skin lesion of neck L98.9
== END 2023-05-31 09:14 | disposition home or self-care (01) ==
PROVIDERS: PCP Internal Medicine; Visit Provider Surgery
DX: L98.9 Disorder of the skin and subcutaneous tissue, unspecified (principal)
CPT/HCPCS: 99024

== ENCOUNTER → 2023-05-31 08:57 | Outpatient (BNVA) | payer MEDICARE, SELFPAY | PROVIDERS: PCP Internal Medicine; Visit Provider Surgery | DX: Z09 Encounter for follow-up examination after completed treatment for conditions other than malignant neoplasm (principal); Z87.2 Personal history of diseases of the skin and subcutaneous tissue | CPT/HCPCS: 99212 ==

== ENCOUNTER 2023-11-16 11:12 | Outpatient (REF) | payer MEDICARE, SELFPAY ==
--- NOTE | ~2023-11-16 | XR_ITS ---
EXAMINATION: XR WRIST, LEFT CLINICAL INFORMATION: Left wrist pain following trauma. COMPARISON: None available. TECHNIQUE: PA, lateral, oblique, and scaphoid views of the left wrist. FINDINGS: No displaced fracture. No dislocation. Normal carpal alignment. Xmqheyyz-fa-tavnky joint space narrowing with minimal bony remodeling at the 1st carpometacarpal joint. Moderate marginal osteophytes. No concerning lytic or blastic osseous lesion. No abnormal soft tissue calcification. Corticated ossification adjacent to the ulnar styloid likely representing an accessory ossicle. XR/XR wrist LT min 3V IMPRESSION: 1. No displaced fracture or dislocation. 2. Cfmvmbhp-mi-giwwgs osteoarthritis at the first carpometacarpal joint. Electronically signed by: Marc Tyler MD 11/16/2023 12:48 PM EDT
== END 2023-11-16 11:13 | disposition home or self-care (01) ==
LOC: HO.XRAY 11:12
PROVIDERS: PCP Internal Medicine; Visit Provider Internal Medicine
DX: S62.102A Fracture of unspecified carpal bone, left wrist, initial encounter for closed fracture (principal)
CPT/HCPCS: 73110

== ENCOUNTER 2024-03-26 16:00 | Emergency (ER) | payer MEDICARE, SELFPAY ==
--- NOTE | ~2024-03-26 | XR_ITS ---
EXAMINATION: XR ELBOW, LEFT CLINICAL INFORMATION: pain COMPARISON: None available. TECHNIQUE: AP, lateral, and oblique views of the left elbow. FINDINGS: There is an elbow joint effusion. No definitive fracture or dislocation. Radial head appears intact. The supracondylar region demonstrates a very subtle lucent traversing line, equivocal for nondisplaced fracture. The ulna appears intact. 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 There is enthesopathy of the epicondyles. There is no soft tissue abnormality. XR/XR elbow LT min 3V IMPRESSION: 1. Joint effusion present. 2. Subtle lucency traversing the supracondylar region is present, equivocal for extremely subtle nondisplaced fracture. CT imaging may be of benefit. 3. 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 Electronically signed by: Mic Luu MD 03/26/2024 05:01 PM KISHA CHASE
--- NOTE | ~2024-03-26 | CT_ITS ---
CLINICAL HISTORY: ?fracture CT left elbow without contrast. Comparison: CR/SR - XR ELBOW LT MIN 3V - 03/26/24 16:44 EST Findings: No evidence of acute fracture dislocation. Mild degenerative disease with multi compartmental osteophytosis. No significant joint effusion. IMPRESSION: No evidence of acute fracture or dislocation of the left elbow. Mild degenerative disease. This document has been electronically signed by: Kayla Browne MD on 03/26/2024 19:23:28
[2024-03-26 16:14] VITALS: BP 183/94; PULSE 95; RESP 20; TEMP 36.8; O2SAT 97; BMI 28.9
--- NOTE | 2024-03-26 16:23 | ED_ITS ---
HPI - Extremity Injury (Upper) General Chief Complaint: Fall Stated Complaint: Fall/L elbow pain Time Seen by Provider: 03/26/24 23:55 Source: patient Mode of arrival: ambulatory Limitations: no limitations History of Present Illness ED Provider: Malena Deutsch NP HPI narrative: Patient is a 73-year-old female who presents emergency department for evaluation after mechanical slip and fall on the ice. She reports that she fell landing directly onto her left elbow. She denies any numbness or tingling to the left upper extremity, no cold sensation to the hand. Mild decreased AROM to the left elbow. No swelling. She denies any head strike, loss of consciousness, use of anticoagulants. She has no associated headache, dizziness, lightheadedness, vision changes, neck pain. Related Data Home Medications ?Medication ?Instructions ?Recorded ?Confirmed latanoprost 0.005 % eye drops 1 drp ophthalmic (eye) DAILY 11/04/19 05/08/23 simvastatin 40 mg tablet 40 mg PO BEDTIME 11/04/19 05/08/23 betaxolol 0.25 % eye 1 drp ophthalmic (eye) DAILY 11/27/19 05/08/23 drops,suspension (Betoptic S) glaucoma cholecalciferol (vitamin D3) 25 25 mcg PO DAILY 11/27/19 05/08/23 mcg (1,000 unit) capsule (Vitamin D3) valsartan 80 1 tab PO DAILY 11/27/19 05/08/23 mg-hydrochlorothiazide 12.5 mg tablet ibuprofen 600 mg tablet 600 mg PO Q6H PRN 05/05/22 05/08/23 rosuvastatin 20 mg tablet 20 mg PO DAILY 05/05/22 05/08/23 timolol maleate 0.5 % eye drops 1 drp ophthalmic (eye) DAILY 05/05/22 05/08/23 Previous Rx's ?Medication ?Instructions ?Recorded docusate sodium 100 mg capsule 100 mg PO BID 30 days #60 caps 12/12/19 scopolamine base 1 mg over 3 days 1.5 mg EAR-BEHIND Q72H 6 days #4 ea 12/12/19 transdermal patch (Transderm-Scop) amoxicillin 500 mg tablet 500 mg PO ONCE 1 day #4 tabs 01/20/20 Allergies Allergy/AdvReac Type Severity Reaction Status Date / Time skin prep Allergy Hives Uncoded 03/26/24 16:19 Review of Systems Review of Systems: Yes all other systems are reviewed and are negative [facility] Past Medical History Attestation statement: The following information was validated with the patient. Source: old records reviewed Medical History Skin lesion of neck Osteoarthritis of left knee Glaucoma High cholesterol HTN (hypertension) Osteoarthritis of left knee Surgical History History of excision of lesion (~05/18/23) History of total knee arthroplasty Family History Family History Father No problems noted. Mother No problems noted. Sister Colon cancer Sister No problems noted. Brother No problems noted. Brother No problems noted. Son No problems noted. Daughter No problems noted. Social History Social History Are you a primary home care associate to a significant other at home: No Do you presently have visiting nurse or other home services: No Alcohol intake: never Comment: sleeping Second Hand Smoke Exposure: No service: No Current occupational status: unemployed Physical Exam Vital Signs: Vital Signs: Last Vital Signs Temp 98.3 F 03/26/24 22:55 Pulse 90 03/26/24 22:55 Resp 18 03/26/24 22:55 BP 174/84 H 03/26/24 22:55 Pulse Ox 95 03/26/24 22:55 O2 Del Method Room Air 03/26/24 22:55 BMI result Body Mass Index 28.9 Appearance: Alert.?Oriented to person, place and time. No acute di stress.?Normal affect. Eyes: Pupils equal, round and reactive to light.? ENT: Pharynx normal.?? Neck: Normal inspection.? Neck supple.?? CVS: Heart sounds normal. Normal heart rate and rhythm.? Pulses normal.?? Respiratory: No respiratory distress.? Lung sounds clear to auscultation bilaterally?? Skin: Skin warm and dry.? Normal skin color.? Extremities: No localized edema to the left upper extremity. No deformity to the left elbow. Decreased AROM. Full range of motion to the left shoulder left wrist. 2+ radial pulse. Neuro: Moves all extremities spontaneously. Sensation intact bilaterally. No focal neuro deficits. Ambulates with normal steady gait. Course Course Course Narrative: This is an RME: Additional HPI, ROS, PE not included below will be deferred to primary provider. RME assessment and note performed by: Debra Call PA-C This is a 73-year-old female who presents emergency department with complaints of mechanical fall which occurred just prior to arrival. She slipped and fell and landed directly onto her left elbow. Tenderness palpation along the elbow, strong radial pulse. Placed in sling and x-rays ordered. Plan: xray elbow Medications Administered Discontinued Medications Generic Name Dose Route Start Last Admin Trade Name Freq PRN Reason Stop Dose Admin Ibuprofen 600 mg 03/26/24 22:54 03/26/24 23:01 Ibuprofen 600 Mg Tablet PO 03/26/24 22:55 600 mg ONCE ONE Administration Medical Decision Making Medical Decision Making MDM Narrative: Hypertension, hypercholesterolemia, osteoarthritis who presents emergency department for evaluation after mechanical slip and fall with left elbow injury as per HPI. Mild decreased AROM secondary to pain. Extremities neurovascularly intact distally. No obvious deformity. No erythema or swelling. XR was obtained prior to my assumption of care and had concern for possible subtle fracture, further CT imaging was obtained it is without evidence of acute fracture she does have degenerative changes which I have made her aware of. She has been placed in a sling to help immobilize the joint over the next 2 days. Discussed conservative treatment including rest, ice, elevation, she is chronically prescribed 800 mg of ibuprofen 3 times daily as needed, we discussed acetaminophen in addition to this as needed. Given her age and mechanism of injury, I did discuss with her CT imaging due to shearing forces which can result in ICH, she declines CT imaging. At this time she has no focal neurological deficits. Discussed strict return precautions. Outpatient follow up with the primary care doctor. All questions answered Differential Diagnosis Differential Diagnoses: The differential diagnosis associated with the presentation includes (See narrative above) Admission/Observation Consideration of admission/observation: Escalation of care including admission/observation considered (See narrative above) Independent Interpretation I performed an independent interpretation of an: CT Scan (No acute fracture) Radiology Impression Discussion of test interpretation with radiology: I have reviewed the radiologist's reading. Radiologist Impression: XR/XR elbow LT min 3V IMPRESSION: 1. Joint effusion present. 2. Subtle lucency traversing the supracondylar region is present, equivocal for extremely subtle nondisplaced fracture. CT imaging may be of benefit. 3. 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 IMPRESSION: CT left elbow No evidence of acute fracture or dislocation of the left elbow. Mild degenerative disease. Discharge Plan Discharge Clinical Impression: Contusion of elbow, left Patient Disposition: Home, Self-Care Instructions: Contusion in Adults (ED), R.I.C.E. Treatment (ED) Prescriptions: No Action amoxicillin 500 mg tablet 500 mg PO ONCE 1 Days Qty: 4 3RF Rx Instructions: Take 4 tabs 1 hours prior to dental procedure valsartan-hydrochlorothiazide 80-12.5 mg tablet 1 tab PO DAILY Betoptic S 0.25 % Drops,Suspension 1 drp ophthalmic (eye) DAILY Rx Instructions: both eyes cholecalciferol (vitamin D3) [Vitamin D3] 25 mcg (1,000 unit) Capsule 25 mcg PO DAILY docusate sodium 100 mg Capsule 100 mg PO BID 30 Days Qty: 60 0RF scopolamine base [Transderm-Scop] 1 mg over 3 days Patch 3 Day 1.5 mg EAR-BEHIND Q72H 6 Days Qty: 4 0RF latanoprost 0.005 % drops 1 drp ophthalmic (eye) DAILY simvastatin 40 mg tablet 40 mg PO BEDTIME rosuvastatin 20 mg tablet 20 mg PO DAILY timolol maleate 0.5 % drops 1 drp ophthalmic (eye) DAILY ibuprofen 600 mg tablet 600 mg PO Q6H PRN Referrals: Ignacio Bray MD [Primary Care Provider] - Print Language: Japanese
[2024-03-26 22:55] VITALS: BP 174/84; PULSE 90; RESP 18; TEMP 36.8; O2SAT 95
[2024-03-26] MEDS: Ibuprofen 600 MG TABLET PO (23:01)
--- NOTE | 2024-03-27 00:10 | PC.NURSE ---
discharge per provider
== END 2024-03-27 00:11 | disposition home or self-care (01) ==
PROVIDERS: Emergency Provider Emergency Medicine; PCP Internal Medicine
DX: S50.02XA Contusion of left elbow, initial encounter (principal); W00.0XXA Fall on same level due to ice and snow, initial encounter; I10 Essential (primary) hypertension; E78.00 Pure hypercholesterolemia, unspecified; Y93.9 Activity, unspecified; Y92.9 Unspecified place or not applicable; Y99.9 Unspecified external cause status
CPT/HCPCS: 73080; 73200; 99282; 99284

== ENCOUNTER → 2024-03-26 16:24 | Outpatient (BNV) | payer MEDICARE, SELFPAY | PROVIDERS: PCP Internal Medicine; Visit Provider Radiology Diagnostic Radiology | DX: M19.022 Primary osteoarthritis, left elbow (principal); M25.422 Effusion, left elbow | CPT/HCPCS: 73080 ==

== ENCOUNTER 2024-04-25 07:42 | Outpatient (REF) | payer MEDICARE, SELFPAY ==
--- OUTSIDE RECORDS SUMMARY | 2024-04-25 07:46 | XMS_ITS ---
Author Organization Ignacio Bray MD Address [address] [facility] [address] [place] [phone] Care Team Providers Care Business Support Name Role Phone Ignacio Bray Primary Care Provider REASON FOR VISIT FASTING LABS Encounters Encounter Location Date Provider Diagnosis Ignacio Bray MD [address] [facility] [address] [place] [phone] 04/25/2024 Ignacio Bray Blood tests for rout ine general physical examination Z00.00 ; Essential hypertension I10 ; Prediabetes R73.03 and Thrombocytopenia D69.6 Assessments Encounter Date Diagnosis (ICD Code) Assessment Notes Treatment Notes Treatment Clinical Notes Section Notes 04/25/2024 Blood tests for routine general physical examination (ICD-10 - Z00.00) 04/25/2024 Essential hypertension (ICD-10 - I10) 04/25/2024 Prediabetes (ICD-10 - R73.03) 04/25/2024 Thrombocytopenia (ICD-10 - D69.6) Plan Of Treatment Pending Test Test Name Order Date Complete Blood Count Auto Diff Comprehensive [place]. Panel Fast Lipid Panel 04/25/2024 Microalbumin, Random 04/25/2024 Hemoglobin A1c 04/25/2024 UA ClnCatch+Micro w/rflx Cult 04/25/2024 Next Appt Details Provider Name:Ignacio handy, 05/02/2024 09:30:00 AM, [address] [facility] [address], [address], [place], [place], [phone], Progress Notes * Gala WEEKSeDOB: (73 yo F)Acc No.[id number]:04/25/2024 Progress Note Patient:Audra GORDON Provider:?Ignacio Bray MD :1950???Age:73 Y???Sex:Female D ate:04/25/2024 Address:[address] [place] [address], [facility] Subjective: * Chief Complaints: * ???1. FASTING LABS. * Medical History:? Objective: * Vitals:? Assessment: * Assessment: 1.?Blood tests for routine g eneral physical examination - Z00.00 (Primary)???2.?Essential hypertension - I10???3.?Prediabetes - R73.03???4.?Thrombocytopenia - D69.6??? Plan: * Treatment: 2.?Essential hypertension?LAB: Complete Blood Count Auto Diff ?LAB: Comprehensive [place]. Panel Fast ?LAB: Lipid Panel ?LAB: Microalbumin, Random ?LAB: Hemoglobin A1c ?LAB: UA ClnCatch+Micro w/rflx Cult 3.?Prediabetes?LAB: Complete Blood Count Auto Diff ?LAB: Comprehensive [place]. Panel Fast ?LAB: Lipid Panel ?LAB: Microalbumin, Random ?LAB: Hemoglobin A1c ?LAB: UA ClnCatch+Micro w/rflx Cult 4.?Thrombocytopenia?LAB: Complete Blood Count Auto Diff ?LAB: Comprehensive [place]. Panel Fast ?LAB: Lipid Panel ?LAB: Microalbumin, Random ?LAB: Hemoglobin A1c ?LAB: UA ClnCatch+Micro w/rflx Cult * Procedure Codes:?77090 VENIP UNCT, ROUTINE* * * The named appointment provid er may or may not be the originator of this progress note, and it is not deemed complete until electronically signed by the appointment provider. Sign off status: Pending * Provider:?Ignacio Bray MD Date:?0 04/25/2024 Generated for Sage sandoval/Maryana/Yazmin on:?04/25/2024 07:46 AM EDT
--- OUTSIDE RECORDS SUMMARY | 2024-04-25 07:47 | XMS_ITS ---
Author Organization Ignacio Bray MD Address [address] [place], [place] [id number] Care Team Providers Care Director Of Land Acquisition Name Role Phone Ignacio Bray Primary Care Provider Allergies Allergen (clinical drug ingredient) Drug/Non Drug Allergy documented on EMR Reaction Allergy Type Onset Date Status Lisinopril-Hydroch lorothiazide face got red and heard noises in her head Drug Allergy Active atorvastatin Lipitor joint pain Drug Allergy Act ginger REASON FOR VISIT [place] app[place] [facility] [place] Medications Medication SIG (Take, Route, Frequency, Duration) Notes Start Date End Date Status Rosuvastatin Calcium 20 MG TAKE ONE TABL ET BY MOUTH EVERY DAY for 90 Active Valsartan-hydroCHLOROthiazi de 80-12.5 MG TAKE ONE TABLET BY MOUTH EVERY DAY for 90 Active Crestor 10 MG 1 tablet Orally Once a day Not-Taking Cyclobenzaprine HCl 5 MG 1 tablet at bed time as needed Orally twice a day for 10 days 09/06/2021 Not-Taking Lisinopril-hydroCHLOROthiaz chris 10-12.5 MG 1 tablet Orally Once a day for 90 days 09/24/2018 Not-Taking Ibuprofen 800 MG TAKE 1 TABLET BY MOUTH 3 TIMES DAILY WITH FOOD OR MILK NEEDED Orally Three times a day for 30 days Active amLODIPine Besylate 5 MG 1 tablet Orally Once a day 12/24/2018 Active Latanoprost 0.005 % INSTILL 1 DROP IN EACH EYE AT BEDTIME Ophthalmic for 20 Active Betoptic-S 0.25 % 1 drop into affected eye Ophthalmic Twice a day Active Vitamin D 50 MCG (1999) 1 tablet Oral ly Once a day for 30 day(s) Active Vital Signs Blood pressure systolic 158 mm Hg 04/04/19 25 Blood pressure diastolic 80 mm Hg 025 Height 59.5 in 04/04/2024 Weight 155 lbs 04/04/2024 BMI 30.78 kg/m2 04/04/2024 Encounters Encounter Location Date Provider Diagnosis Ignacio Bray MD [address] [place] [address] Drive [address] [place], [place] [phone] 04/04/2024 Ignacio Bray Elbow pain, left M25.522 Assessments Encounter Date Diagnosis (ICD Code) Assessment Notes Treatment Notes Treatment Clinical Notes Section Notes 04/04/2024 Elbow pain, left (ICD-10 - M25.522) doing well. no fractures, will contnue to observe and contact office if issues persist Plan Of Treatment Treatment Notes Assessment Notes Elbow pain, left doing well. no fract ures, will contnue to observe and contact office if issues persist Next Appt Details Provider Name:Ignacio Burris ier, 05/02/2024 09:30:00 AM, [address] [place] [address], [address], [place], [place], [phone], Progress Notes * CRISTIANBELEMAlejandroOB: (73 yo F)Acc No.[id number]:04/04/2024 Progress Notes Patient:?Audra WEEKS Provider:?Ignacio Bray MD :1950???Age:73 Y???Sex:Female D ate:04/04/2024 Address:[address] [place], [place] [phone] Subjective: * Chief Complaints: * ???follow up appt [place] [facility] [place] Fall * HPI: ???Fall Risk:?History?Have you had any falls with injury in the past year??Yes fell in front of her garage door fell on left elbow, went to the ER.?Symptom(s):?patient is a 73 yo female here for follow up from recent ER visit, following a fall, ER note reviewed. * ROS:?General/Constitutional:?Denies?Chills.?Denies?Fatigue.?Denies?Fever.?Denies?Headache.?ENT:?Patient denies?decreased sense of smell, any loss of taste, sore throat.?Denies?Sore throat.?Respiratory:?Denies?Cough.?Denies?Shortness of breath at rest.?Denies?Shortness of breath with exertion.?Gastrointestinal:?Denies?Diarrhea.?Denies?Nausea.?Musculoskeletal:?Patient denies?muscle aches.?Peripheral Vascular:?Patient denies?red and blue toes.? * Medical History:? * Surgical History:? * Hospitalization/Major Diagno stic Procedure:? * Medications:?TakingLatanopro st 0.005 % Solution INSTILL 1 DROP IN EACH EYE AT BEDTIME Ophthalmic Betoptic-S 0.25 % Suspension 1 drop into affected eye Ophthalmic Twice a day Vitamin D 50 MCG (1999) Tablet 1 tablet Orally Once a day Ibuprofen 800 MG Tablet TAKE 1 TABLET BY MOUTH 3 TIMES DAILY WITH FOOD OR MILK NEEDED Orally Three times a day amLODIPine Besylate 5 MG Tablet 1 tablet Orally Once a day Rosuvastatin Calcium 20 MG Tablet TAKE ONE TABLET BY MOUTH EVERY DAY Valsartan- hydroCHLOROthiazide 80-12.5 MG Tablet TAKE ONE TABLET BY MOUTH EVERY DAY Taking Latanoprost 0.005 % Solution INSTILL 1 DROP IN EACH EYE AT BEDTIME Ophthalmic Taking Betoptic-S 0.25 % Suspension 1 drop into affected eye Ophthalmic Twice a day Taking Vitamin D 50 MCG (1999) Tablet 1 tablet Orally Once a day Taking Ibuprofen 800 MG Tablet TAKE 1 TABLET BY MOUTH 3 TIMES DAILY WITH FOOD OR MILK NEEDED Orally Three times a day Taking amLODIPine Besylate 5 MG Tablet 1 tablet Orally Once a day Taking Rosuvastatin Calcium 20 MG Tablet TAKE ONE TABLET BY MOUTH EVERY DAY Taking Valsartan-hydroCHLOROthiazide 80-12.5 MG Tablet TAKE ONE TABLET BY MOUTH EVERY DAY Not-Taking/PRNCyclobenzaprine HCl 5 MG Tablet 1 tablet at bedtime as needed Orally twice a day Lisinopril-hydroCHLOROthiazide 10-12.5 MG Tablet 1 tablet Orally Once a day Crestor 10 MG Tablet 1 tablet Orally Once a day Medication List reviewed and reconciled with the patientNot-Taking/PRN Cyclobenzaprine HCl 5 MG Tablet 1 tablet at bedtime as needed Orally twice a day Not-Taking/PRN Lisinopril- hydroCHLOROthiazide 10-12.5 MG Tablet 1 tablet Orally Once a day Not-Taking/PRN Crestor 10 MG Tablet 1 tablet Orally Once a day Medication List reviewed and reconciled with the patient * Allergies:?Lipitor: joint pa inLisinopril-Hydrochlorothiazide: face got red and heard noises in her headyes[Allergies Verified] Objective: * Vitals:?Ht: 59.5, Wt: 155, B CO:30.78, BP:158/80, Repeat BP:130/75, Wt-k.31. * Examination: ???General Examination: ?GENERAL APPEARANCE:?alert, well hydrated, in no distress.?SKIN:?good turgor.?HEART:?regular rate and rhythm.?LUNGS:?no wheezes, rales, rhonchi, good air movement, clear to auscultation bilaterally.?EXTREMITIES:?elbow appears normal.? Assessment: * Assessment: 1.?Elbow pain, left - M25.52 2 (Primary)??? Plan: * Treatment: * Procedure Codes:? * * Sign off status: Completed true * Provider:?Ignacio Bray MD Date:?0 04/04/2024 Generated for Sage sandoval/Maryana/Yazmin on:?04/25/2024 07:46 AM EDT History and Physical Notes * HPI (History of Present Illness) Category Sub-Category Detail Notes Category Not es Symptom(s) patient is a 73 yo female here for follow up from recent ER visit, following a fall, ER note reviewed Fall Risk History Have you had any falls with injury in the past year?: Yes fell in front of her garage door fell on left elbow, went to the ER Examination Category Sub-Category Detail Notes Category Not es General Examination GENERAL APPEARANCE: alert, w ell hydrated, in no distress HEART: regular rate and rhy thm LUNGS: no wheezes, rales, r honchi, good air movement, clear to auscultation bilaterally SKIN: good turgor EXTREMITIES: elbow appears normal
--- OUTSIDE RECORDS SUMMARY | 2024-04-25 07:47 | XMS_ITS | Data Portability ---
Author Organization [place] [facility] [place] Address [address] [facility] [place] [address] [place] [address] Care Team Providers Care Senior Pl Sql Developer Name Role Phone MARVINANA Primary Care Provider Assessment Encounter Date Assessment Date Assessment LastModified by Organization Details LastModified Time 09/14/2023 09/14/2023 Audra Aponte is a 72 year old woman with complaints of bilateral ankle pain, right is greater than left. She has had a course of physical therapy which she helped temporarily. She is doing a home exercise program with persistent pain. On exam, she has pain on flexion. swelling is present in both ankles . Tenderness is elicited on palpation of lateral malleolus region in bilateral ankles. Limited range of motion is present. She is here for a left ankle steroid injection under ultrasound guidance. The risks and benefits of the procedure were reviewed in detail. She wishes to proceed. She can follow up as needed. [email or web address] Not available 09/14/2023 13:40:41 09/25/2023 09/25/2023 Audra Aponte is a 72 year old woman with complaints of bilateral ankle pain, right is greater than left. She has had a course of physical therapy which she helped temporarily. She is doing a home exercise program with persistent pain. On exam, she has pain on flexion. swelling is present in both ankles . Tenderness is elicited on palpation of lateral malleolus region in bilateral ankles. Limited range of motion is present. She is here for a right ankle steroid injection under ultrasound guidance. The risks and benefits of the procedure were reviewed in detail. She wishes to proceed. She can follow up as needed. [email or web address] Not available 09/25/2023 16:39:21 12/25/2023 12/25/2023 Audra Aponte is a 72 year old woman with complaints of bilateral ankle pain, right is greater than left. She has had a course of physical therapy which she helped temporarily. She is doing a home exercise program with persistent pain. On exam, she has pain on flexion. swelling is present in both ankles . Tenderness is elicited on palpation of lateral malleolus region in bilateral ankles. Limited range of motion is present. She is here for a left ankle steroid injection under ultrasound guidance. The risks and benefits of the procedure were reviewed in detail. She wishes to proceed. She can follow up as needed. [email or web address] Not available 12/25/2023 11:54:05 01/01/2024 01/01/2024 Audra Aponte is a 73 year old woman with complaints of bilateral ankle pain, right is greater than left. She has had a course of physical therapy which she helped temporarily. She is doing a home exercise program with persistent pain. On exam, she has pain on flexion. swelling is present in both ankles . Tenderness is elicited on palpation of lateral malleolus region in bilateral ankles. Limited range of motion is present. She is here for a right ankle steroid injection under ultrasound guidance. The risks and benefits of the procedure were reviewed in detail. She wishes to proceed. She can follow up as needed. [email or web address] Not available 01/01/2024 16:55:02 04/04/2024 04/04/2024 Audra Aponte is a 72 year old woman with complaints of bilateral ankle pain, right is greater than left. She has had a course of physical therapy which she helped temporarily. She is doing a home exercise program with persistent pain. On exam, she has pain on flexion. swelling is present in both ankles . Tenderness is elicited on palpation of lateral malleolus region in bilateral ankles. Limited range of motion is present. She is here for a left ankle steroid injection under ultrasound guidance. The risks and benefits of the procedure were reviewed in detail. She wishes to proceed. She can follow up as needed. [email or web address] Not available 04/04/2024 15:11:56 Plan of Treatment Reminders Order Date Submit Date Provider Last Modified By Organization Details Last Modified Time Details Appointments PROCEDURE 2024 01:30P Rosa helms MD Not available Not available Not available PROCEDURE 2024 01:30P M Annabel helms MD Not available Not available Not available Lab None recorded. Referral None recorded. Procedures None recorded. Surgeries None recorded. Imaging None recorded. Medication Orders None recorded. Patient TargetsNo targets recorded. Patient Instructions Encounter Date Encounter Id Patient Instructions Last Modified By Organization Details Last Modified Time 09/14/2023 [id number] She was advised against bed rest lasting longer than four days and to continue activities as tolerated. [email or web address] Not available 09/14/2023 13:40:55 09/25/2023 [id number] She was advised against bed rest lasting longer than four days and to continue activities as tolerated. [email or web address] Not available 09/25/2023 16:38:18 12/25/2023 [id number] She was advised against bed rest lasting longer than four days and to continue activities as tolerated. [email or web address] Not available 12/25/2023 11:54:06 01/01/2024 [id number] She was advised against bed rest lasting longer than four days and to continue activities as tolerated. [email or web address] Not available 01/01/2024 16:54:06 04/04/2024 [id number] She was advised against bed rest lasting longer than four days and to continue activities as tolerated. [email or web address] Not available 04/04/2024 15:11:57 Reason for Referral None Reported. Problems Name Problem SNOMED Code Status Onset Date Resolution Date Notes Provider Name and Address Organization Details Recorded Time Osteoarthritis of knee 043624545 Active Annabel helms MD [address] [facility] , [address], [place], [address], [place] [facility] 9 08:54:23 Osteoarthritis of ankle 372094735 Active Annabel helms MD [address] [facility] , [address], [place], [address], [place] [facility] 14:45:45 Problem Notes None recorded. Procedures Surgical History Date Name Laterality Status Provider Name and Address Organization Details Recorded Time Ankle Steroid Injection under ultrasound guidance completed Annabel Jiménez MD [address] [facility] , [address], [place], [address], [place] [facility] 04/04/2024 15:12:07 4 Ankle Steroid Injection under ultrasound guidance completed Annabel Jiménez MD [address] , [address], [place], [address], [place] [facility] 01/01/2024 16:54:16 4 Ankle Steroid Injection under ultrasound guidance completed Annabel Jiménez MD [address] , [address], [place], [address], [place] [facility] 12/25/2023 11:54:15 4 Ankle Steroid Injection under ultrasound guidance completed Annabel Jiménez MD [address] , [address], [place], [address], [place] [facility] 09/25/2023 16:38:27 4 Ankle Steroid Injection under ultrasound guidance completed Annabel Jiménez MD [address] , [address], [place], [address], [place] [facility] 09/14/2023 13:41:04 4 Ankle Steroid Injection under ultrasound guidance completed Annabel Jiménez MD [address] , [address], [place], [address], [place] [facility] 07/17/2023 10:54:22 4 Ankle Steroid Injection under ultrasound guidance completed Annabel Jiménez MD [address] , [address], [place], [address], [place] [facility] 06/12/2023 10:10:06 4 Ankle Steroid Injection under ultrasound guidance completed Annabel Jiménez MD [address] , [address], [place], [address], [place] [facility] 03/20/2023 11:00:33 4 Ankle Steroid Injection under ultrasound guidance completed Annabel Jiménez MD [address] , [address], [place], [address], [place] [facility] 03/13/2023 09:41:56 3 Ankle Steroid Injection under ultrasound guidance completed Annabel Jiménez MD [address] , [address], [place], [address], [place] [facility] 12/12/2022 10:59:24 3 Ankle Steroid Injection under ultrasound guidance completed Annabel Jiménez MD [address] , [address], [place], [address], [place] [facility] 12/05/2022 09:38:34 3 Ankle Steroid Injection under ultrasound guidance completed Annabel Jiménez MD [address] [facility] , [address], [place], [address], [place] [facility] 08/25/2022 09:41:45 3 Ankle Steroid Injection under ultrasound guidance completed Annabel Jiménez MD [address] [facility] , [address], [place], [address], [place] [facility] 08/15/2022 16:42:56 3 Ankle Steroid Injection under ultrasound guidance completed Annabel Jiménez MD [address] [facility] , [address], [place], [address], [place] [facility] 05/12/2022 14:59:17 3 Ankle Steroid Injection under ultrasound guidance completed Annabel Jiménez MD [address] [facility] , [address], [place], [address], [place] [facility] 03/14/2022 10:14:18 2 Ankle Steroid Injection under ultrasound guidance completed Annabel Jiménez MD [address] [facility] , [address], [place], [address], [place] [facility] 12/29/2021 09:33:19 2 Intra-articular shoulder steroid injection under ultrasound guidance completed Annabel Jiménez MD [address] [facility] , [address], [place], [address], [place] [facility] 11/18/2021 09:21:28 2 Ankle Steroid Injection under ultrasound guidance completed Annabel Jiménez MD [address] [facility] , [address], [place], [address], [place] [facility] 08/12/2021 09:56:04 2 Ankle Steroid Injection under ultrasound guidance completed Annabel Jiménez MD [address] , [address], [place], [address], [place] [facility] 08/05/2021 10:03:36 2 Ankle Steroid Injection under ultrasound guidance completed Annabel Jiménez MD [address] , [address], [place], [address], [place] [facility] 05/06/2021 14:49:11 2 Ankle Steroid Injection under ultrasound guidance completed Annabel Jiménez MD [address] , [address], [place], [address], [place] [facility] 04/22/2021 14:25:27 1 Ankle Steroid Injection under ultrasound guidance completed Annabel Jiménez MD [address] , [address], [place], [address], [place] [facility] 01/21/2021 13:44:35 1 Ankle Steroid Injection under ultrasound guidance completed Annabel Jiménez MD [address] , [address], [place], [address], [place] [facility] 12/14/2020 13:55:01 1 Intra-articular shoulder steroid injection under ultrasound guidance completed Annabel Jiménez MD [address] , [address], [place], [address], [place] [facility] 10/14/2020 13:23:34 1 Ankle Steroid Injection under ultrasound guidance completed Annabel Jiménez MD [address] , [address], [place], [address], [place] [facility] 09/17/2020 15:57:28 1 Ankle Steroid Injection under ultrasound guidance completed Annabel Jiménez MD [address] , [address], [place], [address], [place] [facility] 09/07/2020 15:37:08 1 Ankle Steroid Injection under ultrasound guidance completed Annabel Jiménez MD [address] , [address], [place], [address], [place] [facility] 05/14/2020 09:48:09 1 Ankle Steroid Injection under ultrasound guidance completed Annabel Jiménez MD [address] , [address], [place], [address], [place] [facility] 04/16/2020 10:56:43 0 Intra-articular Knee Steroid Injection completed Annabel Jiménez MD [address] , [address], [place], [address], [place] [facility] 09/18/2019 13:42:42 0 Intra-articular Knee Steroid Injection completed Annabel Jiménez MD [address] , [address], [place], [address], [place] [facility] 07/04/2019 15:37:27 0 Intra-articular Knee Steroid Injection completed Annabel Jiménez MD [address] , [address], [place], [address], [place] [facility] 06/27/2019 14:51:39 0 Intra-articular Knee Steroid Injection completed Annabel Jiménez MD [address] , [address], [place], [address], [place] [facility] 04/22/2019 11:50:11 9 Intra-articular Knee Steroid Injection completed Annabel Jiménez MD [address] , [address], [place], [address], [place] [facility] 01/14/2019 09:05:21 9 Intra-articular Knee Steroid Injection completed Annabel Jiménez MD [address] , [address], [place], [address], [place] [facility] 01/07/2019 10:25:45 9 Intra-articular Knee Steroid Injection completed Annabel Jiménez MD [address] , [address], [place], [address], [place] [facility] 10/10/2018 13:35:06 9 Intra-articular Knee Steroid Injection completed Annabel Jiménez MD [address] , [address], [place], [address], [facility] - [facility] 09/25/2018 13:42:43 9 Intra-articular Knee Steroid Injection completed Annabel Jiménez MD [address] , [address], [place], [address], [facility] - [facility] 07/04/2018 15:06:53 9 Intra-articular Knee Steroid Injection completed Annabel Jiménez MD [address] , [address], [place], [address], [facility] - [facility] 06/26/2018 14:43:30 total knee replacement completed Annabel Jiménez MD [address] , [address], [place], [address], [facility] - [facility] 04/10/2020 10:23:05 Imaging Results None recorded. Procedure Notes None recorded. Medical Equipment None Reported. Allergies Allergen ID Allergen Name Allergen Category Reaction Reaction Severity Criticality Documentation Date Start Date Code Code System Note Provider Name and Address Organization Details Recorded Time 10447 quinapril medicatio n Not available Not available Not available 10/10/2018 59873 RxNorm Flush ing, ear swish ing Macarena solomon, [place] [facility] 9 13:15:15 Medications Name Sig Start Date Stop Date Status Note LastModified by Organization Details LastModified Time cyclobenz aprine 10 mg tablet TAKE 1 TABLET BY MOUTH TWICE A DAY NEEDED FOR MUSCLE SPASM 01/21 completed Not Available Not Available Not Available amoxicill in 500 mg capsule TAKE 4 CAPSULES BY MOUTH 1 HOUR PRE-OP active Not Available Not Available No t Available latanopro st 0.005 % eye drops INSTILL 1 DROP INTO BOTH EYES AT BEDTIME active Not Available Not Available No t Available prednison e 10 mg tablet 09/25 completed Not Available Not Available Not Available aspirin 325 mg tablet TAKE ONE TABLET BY MOUTH TWICE A DAY FOR 14 DAYS 09/17 completed Not Available Not Available Not Available ibuprofen 800 mg tablet TAKE ONE TABLET BY MOUTH THREE TIMES A DAY WITH FOOD OR MILK NEEDED active Not Available Not Available No t Available hydrocodo ne 5 mg-acetam inophen 325 mg tablet TAKE 1 TABLET BY MOUTH EVERY 4 HOURS WITH FOOD. MAY CAUSE DROWSNES S 08/05 completed Not Available Not Available Not Available amlodipin e 5 mg tablet TAKE 1 TABLET BY MOUTH ONCE A DAY 11/18 completed Calcium Channel Bradford. Treats HTN and angina Not Available Not Available Not Available tramadol 50 mg tablet 06/21 completed Not Available Not Available Not Available amoxicill in 500 mg tablet TAKE 4 TABLETS 1 HOUR PRIOR TO DENTAL PROCEDUR E 01/21 completed Not Available Not Available Not Available simvastat in 40 mg tablet TAKE 1 TABLET BY MOUTH EVERY EVENING 11/18 completed Not Available Not Available Not Available valsartan 80 mg-hydroc hlorothia zide 12.5 mg tablet TAKE ONE TABLET BY MOUTH EVERY DAY active Not Available Not Available No t Available meclizine 25 mg tablet TAKE ONE TABLET BY MOUTH AT NIGHT FOR 10 DAYS 03/20 completed Not Available Not Available Not Available lisinopri l 10 mg tablet TAKE 1 TABLET BY MOUTH ONCE A DAY 09/25 completed Not Available Not Available Not Available lidocaine 5 % topical patch APPLY 1 PATCH ONTO THE SKIN ONCE DAILY MAY WEAR FOR UP TO 12 HOURS) 09/13 completed Not Available Not Available Not Available timolol 0.25 % eye drops INSTILL 1 DROP INTO AFFECTED EYE(S) BY OPHTHALM IC ROUTE 2 TIMES PER DAY active Not Available Not Available No t Available diclofena c sodium 75 mg tablet,de layed release 06/21 completed Not Available Not Available Not Available lisinopri l 10 mg-hydroc hlorothia zide 12.5 mg tablet 10/10 completed Not Available Not Available Not Available ibuprofen 600 mg tablet TAKE 1 TABLET BY MOUTH EVERY 6 HOURS WITH FOOD IN THE MORNING. DO NOT TAKE MORE THAN 4 TABLETS IN 1 DAY 08/05 completed Not Available Not Available Not Available scopolami ne 1 mg over 3 days transderm al patch APPLY 1 PATCH BEHIND EAR EVERY 72 HOURS 05/14 completed Not Available Not Available Not Available methylpre dnisolone 4 mg tablets in a dose pack 06/21 completed Not Available Not Available Not Available timolol maleate 0.5 % eye drops INSTILL 1 DROP INTO THE AFFECTED EYE S) ONCE DAILY. active Not Available Not Available No t Available timolol maleate 0.5 % eye gel forming solution 12/29 completed Night drops Not Available Not Available Not Available oxycodone 5 mg tablet TAKE 1 TABLET BY MOUTH EVERY 8 HOURS NEEDED FOR MODERATE PAIN (PAIN SCALE 4-6) FOR 7 DAYS 04/10 completed Not Available Not Available Not Available valsartan 40 mg tablet 04/10 completed Not Available Not Available Not Available cyclobenz aprine 5 mg tablet TAKE 1 TABLET BY MOUTH AT BEDTIME TWICE DAILY FOR 10 DAYS 11/18 completed Not Available Not Available Not Available Betoptic S 0.25 % eye drops,ct pension INSTILL 1 DROP IN BOTH EYES IN THE MORNING active Not Available Not Available No t Available rosuvasta tin 20 mg tablet TAKE 1 TABLET BY MOUTH EVERY DAY active Not Available Not Available No t Available Boostrix Tdap 2.5 Lf unit-8 mcg-5 Lf/0.5 mL intramusc ular syringe VACCINAT ION ADMINIST ERED BY [employer] ST 06/21 completed Not Available Not Available Not Available chlorhexi dine gluconate 0.12 % mouthwash RINSE WITH 1/2 OUNCE (1 CAPFUL) TWICE DAILY 08/05 completed Not Available Not Available Not Available hydrochlo rothiazid e 12.5 mg tablet TAKE ONE TABLET BY MOUTH EVERY MORNING 04/10 completed Not Available Not Available Not Available diclofena c 1 % topical gel APPLY 4 GRAMS TO AFFECTED AREA(S) TOPICALL Y FOUR TIMES PER DAY 09/17 completed Not Available Not Available Not Available Pennsaid 20 mg/gram/a ctuation (2 %) topical soln in metered-d ose pump APPLY 2 PUMPS (40 MG) TO THE AFFECTED KNEE(S) BY TOPICAL ROUTE 2 TIMES PER DAY 07/04 completed PA approved / pharmacy notified . 06/26/18 (kf) Not Available Not Available Not Available Shingrix (PF) 50 mcg/0.5 mL intramusc ular suspensio n, kit 09/25 completed Not Available Not Available Not Available calcium 167 mg-vitami n D3 1.67 mcg-magne sium 83 mg capsule Take 1 capsule every day by oral route. active Not Available Not Available No t Available Vitals Date Recorded Body height Oxygen saturation Oxygen saturation in Arterial blood by Pulse oximetry Heart rate Pain severity - 0-10 verbal numeric rating [Score] - Reported Systolic blood pressure Diastolic blood pressure Provider Name and Address Organization Details Last Updated DateTime 4 149.86 cm 94 % 94 % 78 /min 10 171 mm[Hg] 86 mm[Hg] Savana Hinojosa o [place] [facility] 4 13:11:30 Date Recorded Body height Heart rate Oxygen saturation Oxygen saturation in Arterial blood by Pulse oximetry Pain severity - 0-10 verbal numeric rating [Score] - Reported Systolic blood pressure Diastolic blood pressure Provider Name and Address Organization Details Last Updated DateTime 4 149.86 cm 81 /min 97 % 97 % 9 155 mm[Hg] 83 mm[Hg] Savana Hinojosa o [place] [facility] 4 13:11:42 Date Recorded Body height Heart rate Oxygen saturation Oxygen saturation in Arterial blood by Pulse oximetry Pain severity - 0-10 verbal numeric rating [Score] - Reported Systolic blood pressure Diastolic blood pressure Provider Name and Address Organization Details Last Updated DateTime 4 149.86 cm 79 /min 96 % 96 % 10 194 mm[Hg] 98 mm[Hg] Ally Arango [place] [facility] 4 11:34:01 Date Recorded Body height Heart rate Oxygen saturation Oxygen saturation in Arterial blood by Pulse oximetry Pain severity - 0-10 verbal numeric rating [Score] - Reported Systolic blood pressure Diastolic blood pressure Provider Name and Address Organization Details Last Updated DateTime 4 149.86 cm 84 /min 97 % 97 % 9 184 mm[Hg] 86 mm[Hg] Ally Arango [place] [facility] 4 13:08:33 Date Recorded Body height Heart rate Oxygen saturation Oxygen saturation in Arterial blood by Pulse oximetry Pain severity - 0-10 verbal numeric rating [Score] - Reported Systolic blood pressure Diastolic blood pressure Provider Name and Address Organization Details Last Updated DateTime 5 149.86 cm 96 /min 95 % 95 % 10 170 mm[Hg] 80 mm[Hg] Ally Ellisonbuono [place] [facility] 5 14:36:56 Social History Question Answer Notes LastModified by Organizat ion Details LastModified Time Tobacco Smoking Status Former Smoker Quit > 15 Not Available [employer] 11/22/2019 03:16:10 What Is Your Level Of Alcohol Consumption? Occasional [id number] Information not available 11/22/2019 Are You Currently Employed? No [id number] Information not available 11/22/2019 Which Illicit Or Recreational Drugs Have You Used? No [id number] Information not available 11/22/2019 Education 12 Information no t available 06/21/2018 What Is Your Occupation? Retired [id number] Information not available 11/22/2019 Live Alone Or With Others? With Others Information not available 06/21/2018 Marital Status [email or web address] Informatio n not available 06/21/2018 What Was The Date Of Your Most Recent Tobacco Screening? 07/04/2018 [id number] Information not available 11/22/2019 How Many Years Have You Smoked Tobacco? 5 [id number] Information not available 11/22/2019 Sex: Unknown Functional Status None recorded. Mental Status None recorded. Family History Relationship Description Onset Age of this Age Resolved Age Notes LastModified by Organization Details LastModified Time Father Glaucoma Not availabl e 06/21/2018 14:15:01 Medical History Condition Response Arthritis Y Hypertension Y High Cholesterol Y Gynecological HistoryNo gynecological history recorded. Obstetrics History GPAL:G 0 P 0 0 0 0 Past Encounters Encounter ID Performer Location Encounter Start Date Encounter Closed Date Diagnosis/Indication Diagnosis SNOMED-CT Code Diagnosis ICD10 Code Diagnosis Note [id number] Annabel Jiménez MD PAIN OFFICE [address] [place] [address] 06/21/2018 13:33:55 06/22/2018 09:07:36 Osteoarthritis of knee 256703222 M17.0 [id number] Annabel Jiménez MD PAIN OFFICE [address] [place] [address] 06/26/2018 14:05:04 06/26/2018 14:46:10 Osteoarthritis of knee 016750746 M17.0 [id number] Annabel Jiménez MD PAIN OFFICE [address] [place] [address] 07/04/2018 14:14:53 07/04/2018 15:08:53 Osteoarthritis of knee 943536500 M17.0 [id number] Annabel Jiménez MD PAIN OFFICE [address] [facility] [place] [address] 09/25/2018 13:03:34 09/25/2018 13:44:25 Osteoarthritis of knee 147297888 M17.0 [id number] Annabel Jiménez MD [facility] [address] [facility] [place] [address] 10/10/2018 12:55:11 10/10/2018 13:54:42 Osteoarthritis of knee 323927508 M17.0 [id number] Annabel Jiménez MD [facility] [address] [employer] [place] [address] 01/07/2019 09:53:52 01/07/2019 10:27:48 Osteoarthritis of knee 493257548 M17.0 [id number] Annabel Jiménez MD [facility] [address] [facility] [place] [address] 01/14/2019 08:15:02 01/14/2019 10:45:57 Osteoarthritis of knee 007905255 M17.0 [id number] Annabel Jiménez MD [facility] [address] [place] [address] 04/22/2019 10:51:02 04/22/2019 13:03:12 Osteoarthritis of knee 526508328 M17.0 [id number] Annabel Jiménez MD [facility] [address] [place] [address] 06/27/2019 14:23:21 06/27/2019 14:53:17 Osteoarthritis of knee 752929116 M17.0 [id number] Annabel Jiménez MD [facility] PAIN OFFICE [address] [place] [address] 07/03/2019 14:16:33 07/04/2019 15:39:06 Osteoarthritis of knee 964445248 M17.0 66429 Annabel Jiménez MD [facility] [address] [place] [address] 09/18/2019 13:03:06 09/18/2019 13:44:29 Osteoarthritis of knee 889537655 M17.0 59947 Annabel Jiménez MD [facility] PA[facility] [address] [place] [address] 04/10/2020 10:10:11 04/14/2020 16:22:26 Pain of left ankle joint 2612181954 6288964 M25.572 Pain of ri ght ankle joint 4449158189 6972295 M25.571 Osteoarthr itis of knee 017548578 M17.0 11835 Annabel Jiménez MD PAIN OFFICE [address] [place] [address] 04/15/2020 13:53:50 04/16/2020 10:59:09 Pain of left ankle joint 9898356490 3555126 M25.572 Pain of ri ght ankle joint 7945244080 8620057 M25.571 Osteoarthr itis of knee 621787303 M17.0 28128 Annabel Jiménez MD PAIN OFFICE [address] [place] [address] 05/14/2020 08:23:15 05/14/2020 09:49:34 Pain of left ankle joint 6367651134 6103556 M25.572 Pain of ri ght ankle joint 6303938349 7989093 M25.571 Osteoarthr itis of knee 933746290 M17.0 24706 Annabel Jiménez MD [facility] PA[facility] [address] [place] [address] 09/07/2020 14:26:39 09/07/2020 15:39:53 Pain of left ankle joint 8051946946 5242779 M25.572 Pain of ri ght ankle joint 5890470713 4638086 M25.571 Osteoarthr itis of knee 930245314 M17.0 84345 Annabel Jiménez MD PAIN OFFICE [address] [place] [address] 09/17/2020 14:50:14 09/17/2020 15:59:01 Pain of left ankle joint 1050135157 3913627 M25.572 Pain of ri ght ankle joint 2738092327 9393016 M25.571 Osteoarthr itis of knee 004971406 M17.0 75406 Annabel Jiménez MD [facility] PA[facility] [address] [place] [address] 10/14/2020 12:55:51 10/14/2020 13:49:42 Subacromial bursitis of left shoulder 6487797747 563663 M75.52 58898 Annabel Jiménez MD PAIN OFFICE [address] [place] [address] 12/14/2020 13:13:45 12/14/2020 13:56:58 Pain of left ankle joint 9814055347 9194831 M25.572 Pain of ri ght ankle joint 0752225416 3618728 M25.571 Osteoarthr itis of knee 012403407 M17.0 90663 Annabel Jiménez MD PAIN OFFICE [address] [address] 01/21/2021 12:56:25 01/21/2021 13:50:39 Pain of left ankle joint 6853693392 9768994 M25.572 Pain of ri ght ankle joint 0140056019 5792972 M25.571 Osteoarthr itis of knee 087169030 M17.0 22089 Annabel Jiménez MD [facility] PAIN OFFICE [address] [address] 04/22/2021 13:11:41 04/22/2021 14:27:29 Pain of left ankle joint 6992430498 9700085 M25.572 Pain of ri ght ankle joint 8281333611 2937113 M25.571 Osteoarthr itis of knee 786863113 M17.0 37350 Annabel Jiménez MD PAIN OFFICE [address] [place] [address] 05/06/2021 10:15:25 05/06/2021 16:13:18 Pain of left ankle joint 7864578469 8220152 M25.572 Pain of ri ght ankle joint 3309382469 8347302 M25.571 Osteoarthr itis of knee 109919703 M17.0 51053 Annabel Jiménez MD PAIN OFFICE [address] [place] [address] 08/05/2021 09:19:25 08/05/2021 10:05:54 Pain of left ankle joint 3372759441 2846563 M25.572 Pain of ri ght ankle joint 7075799864 6212775 M25.571 Osteoarthr itis of knee 219041392 M17.0 13895 Annabel Jiménez MD PAIN OFFICE [address] [facility] [place] [address] 08/12/2021 08:24:00 08/12/2021 09:58:24 Pain of left ankle joint 3638730573 2320571 M25.572 Pain of ri ght ankle joint 9853815266 4327930 M25.571 Osteoarthr itis of knee 622718563 M17.0 09158 Annabel Jiménez MD PAIN OFFICE [address] [facility] [place] [address] 11/18/2021 08:38:11 11/18/2021 09:40:46 Arthritis of joint of left shoulder region 9945411394 537637 M13.812 69295 Annabel Jiménez MD [facility] PAIN OFFICE [address] [facility] [place] [address] 12/29/2021 08:28:43 12/29/2021 09:38:39 Pain of left ankle joint 0273589300 8970278 M25.572 Pain of ri ght ankle joint 0593831088 4008733 M25.571 Osteoarthr itis of knee 175875845 M17.0 39879 Annabel Jiménez MD PAIN OFFICE [address] [facility] [place] [address] 03/14/2022 09:15:17 03/14/2022 10:16:28 Pain of left ankle joint 1329705714 8753767 M25.572 Pain of ri ght ankle joint 3977515865 9483602 M25.571 Osteoarthr itis of knee 280330590 M17.0 80894 Annabel Jiménez MD PAIN OFFICE [address] [facility] [place] [address] 05/12/2022 14:16:21 05/12/2022 15:10:08 Pain of left ankle joint 5915638875 9908157 M25.572 Pain of ri ght ankle joint 2770323383 3533654 M25.571 Osteoarthr itis of knee 920744480 M17.0 93328 Annabel Jiménez MD PAIN OFFICE [address] [facility] [place] [address] 08/15/2022 09:50:22 08/15/2022 16:56:25 Pain of left ankle joint 5414209868 9321633 M25.572 Pain of ri ght ankle joint 1906747307 3351542 M25.571 Osteoarthr itis of knee 083695220 M17.0 82757 Annabel Jiménez MD PAIN OFFICE [address] [facility] [place] [address] 08/25/2022 08:55:25 08/25/2022 09:59:09 Osteoarthritis of ankle 137002287 M19.079 Pain of le ft ankle joint 6928571453 5721383 M25.572 Pain of ri ght ankle joint 8954040240 1810065 M25.571 Osteoarthr itis of knee 558515046 M17.0 10357 Annabel Jiménez MD PAIN OFFICE [address] [facility] [place] [place] [address] 12/05/2022 08:54:19 12/05/2022 11:33:45 Pain of left ankle joint 3837408437 4460159 M25.572 Pain of ri ght ankle joint 9861393986 0160265 M25.571 Osteoarthr itis of knee 638802553 M17.0 88708 Annabel Jiménez MD PAIN OFFICE [address] [place] [address] 12/12/2022 08:53:55 12/12/2022 11:46:14 Osteoarthritis of ankle 815141104 M19.079 Pain of le ft ankle joint 0856846495 6168959 M25.572 Pain of ri ght ankle joint 6228551000 6240191 M25.571 Osteoarthr itis of knee 701734415 M17.0 40776 Annabel Jiménez MD PAIN OFFICE [address] [place] [address] 03/13/2023 08:58:50 03/13/2023 10:46:30 Osteoarthritis of ankle 082897335 M19.079 Pain of le ft ankle joint 3897004823 9495696 M25.572 Pain of ri ght ankle joint 5481621546 5949276 M25.571 Osteoarthr itis of knee 396983608 M17.0 84106 Annabel Jiménez MD PAIN OFFICE [address] [place] [address] 03/20/2023 08:57:46 03/20/2023 11:04:37 Pain of right ankle joint 5710746034 1743865 M25.571 Osteoarthr itis of knee 298046219 M17.0 Osteoarthr itis of ankle 689713534 M19.071 98043 Annabel Jiménez MD PAIN OFFICE [address] [place] [address] 06/12/2023 08:56:14 06/12/2023 10:21:55 Osteoarthritis of ankle 232695007 M19.071 64938 Annabel Jiménez MD PAIN OFFICE [address] [place] [address] 07/17/2023 09:30:59 07/17/2023 11:01:23 Osteoarthritis of ankle 697040442 M19.072 Pain of le ft ankle joint 4579386749 3568270 M25.572 52219 Annabel Jiménez MD [facility] PAIN OFFICE [address] [facility] [place] [address] 09/14/2023 13:03:32 09/14/2023 14:09:55 Osteoarthritis of ankle 635826092 M19.072 Pain of le ft ankle joint 3051814781 3079069 M25.572 55376 Annabel Jiménez MD [facility] PAIN OFFICE [address] [facility] [place] [address] 09/25/2023 13:02:44 09/25/2023 16:46:33 Degenerative joint disease of ankle AND/OR foot 58662315 M19.071 73909 Annabel Jiménez MD [facility] PAIN OFFICE [address] [facility] [place] [address] 12/25/2023 11:13:40 12/25/2023 16:21:08 Osteoarthritis of ankle 487072603 M19.072 Pain of le ft ankle joint 2140240214 3894257 M25.572 65308 Annabel Jiménez MD [facility] PAIN OFFICE [address] [facility] [place] [address] 01/01/2024 13:00:13 01/01/2024 16:56:01 Osteoarthritis of ankle 177274737 M19.072 Degenerati ve joint disease of ankle AND/OR foot 38263847 M19.071 89340 Annabel Jiménez MD [facility] PAIN OFFICE [address] [facility] [place] [address] 04/04/2024 14:18:40 04/04/2024 16:13:38 Osteoarthritis of ankle 170248537 M19.072 Pain of le ft ankle joint 2668576232 5461171 M25.572 Health Concerns Section Related Observation LastModified by Organization Detai ls LastModified Time None Recorded Concern Status LastModified by Organization Details LastModified Time None Recorded Advance Directives Directive None Recorded Payers Encounter Date Sequence Insurance Name Policy Number Policy Sykes Covered Member ID Sykes Member ID Guarantor Name 09/14/2023 1 [facility] - COMMUNITY CARE PLAN (HMO) Audra Cristóbalzniar [id number] Audra Kuzniar 09/25/2023 1 [facility] - COMMUNITY CARE PLAN (HMO) Audra Kuzniar [id number] Audra Kuzniar 12/25/2023 1 [facility] - COMMUNITY CARE PLAN (HMO) Audra Kuzniar [id number] Audra Kuzniar 01/01/2024 1 [facility] - COMMUNITY CARE PLAN (HMO) Audra Kuzniar [id number] Audra Kuzniar 04/04/2024 1 [facility] - [facility] PL[facility] (MEDICARE REPLACEMENT HMO) Audraroverto Ambrociozniar [id number] Audra Kuzniar Notes Date Note Type Note Provider Name and Address Organization Details Recorded Time 09/14/2023 text/html She is here for a left ankle steroid injection under ultrasound guidance. Annabel Jiménez MD [address] [facility] , [address], [place], [address], [place] [facility] 09/14/2023 14:13:00 09/25/2023 text/html She is here for a Right ankle steroid injection under ultrasound guidance Annabel Jiménez MD [address] , [address], [place], [address], [place] [facility] 09/26/2023 10:18:07 12/25/2023 text/html She is here for a left ankle steroid injection under ultrasound guidance. Annabel Jiménez MD [address] , [address], [place], [address], [place] [facility] 12/25/2023 16:22:19 01/01/2024 text/html She is here for a Right ankle steroid injection under ultrasound guidance Annabel Jiménez MD [address] , [address], [place], [address], [place] [facility] 01/01/2024 16:58:51 04/04/2024 text/html She is here for a left ankle steroid injection under ultrasound guidance. Annabel Jiménez MD [address] [place] [address] , [address], [place], [address], [facility] 04/05/2024 09:12:46 OBGyn Episode No OBEpisode recorded.
--- OUTSIDE RECORDS SUMMARY | 2024-04-25 07:47 | XMS_ITS | Continuity of Care Document ---
Author Organization [facility], PAIN OFFICE Address [address] [facility],[address] [address] Care Team Providers Care Biller Name Role Phone STEVEANA REZA Primary Care Provider Assessment Encounter Date Assessment Date Assessment LastModified by Organization Details LastModified Time 04/04/2024 04/04/2024 Audra Aponte is a 72 [...] Modified Time Details Appointments PROCEDURE 2024 01:30P M Annabel helms MD [...] Modified By Organization Details Last Modified Time 04/04/2024 [id number] She was advised against bed rest lasting longer than four days and to continue activities as tolerated. [email or web address] Not available 04/04/2024 15:11:57 Reason for Referral None Reported. Problems Name Problem SNOMED Code Status Onset Date Resolution Date Notes Provider Name and Address Organization Details Recorded Time Osteoarthritis of knee 266620822 Active Annabel helms MD [address] [facility] , [address], [place], [address], [place] [facility] 9 08:54:23 Osteoarthritis of ankle 637477236 Active Annabel helms MD [address] [facility] , [address], [place], [address], [place] [facility] 1 14:45:45 Problem Notes None recorded. Procedures Surgical History Date Name Laterality Status Provider Name and Address Organization Details Recorded Time 5 Ankle Steroid Injection under ultrasound guidance completed Annabel Jiménez MD [address] [facility] , [address], [place], [address], [place] [facility] 04/04/2024 15:12:07 4 Ankle Steroid Injection under ultrasound guidance completed Annabel Jiménez MD [address] [facility] , [address], [place], [address], [place] [facility] 01/01/2024 16:54:16 4 Ankle Steroid Injection under ultrasound guidance completed Annabel Jiménez MD [address] [facility] , [address], [place], [address], [place] [facility] 12/25/2023 11:54:15 4 Ankle Steroid Injection under ultrasound guidance completed Annabel Jiménez MD [address] [facility] , [address], [place], [address], [place] [facility] 09/25/2023 16:38:27 4 Ankle Steroid Injection under ultrasound guidance completed Annabel Jiménez MD [address] [facility] , [address], [place], [address], [place] [facility] 09/14/2023 13:41:04 4 Ankle Steroid Injection under ultrasound guidance completed Annabel Jiménez MD [address] [facility] , [address], [place], [address], [place] [facility] 07/17/2023 10:54:22 4 Ankle Steroid Injection under ultrasound guidance completed Annabel Jiménez MD [address] , [address], [place], [address], [place] [facility] 06/12/2023 10:10:06 4 Ankle Steroid Injection under ultrasound guidance completed Annabel Jiménez MD [address] , [address], [place], [address], [place] [facility] 03/20/2023 11:00:33 4 Ankle Steroid Injection under ultrasound guidance completed Annabel Jiménez MD [address] , [address], [place], [address], [place] [facility] 03/13/2023 09:41:56 3 Ankle Steroid Injection under ultrasound guidance completed Annabel Jiménez MD [address] , [address], [place], [address], [place] [facility] 12/12/2022 10:59:24 3 Ankle Steroid Injection under ultrasound guidance completed Annabel Jiménez MD [address] , [address], [place], [address], [place] [facility] 12/05/2022 09:38:34 3 Ankle Steroid Injection under ultrasound guidance completed Annabel Jiménez MD [address] , [address], [place], [address], [place] [facility] 08/25/2022 09:41:45 3 Ankle Steroid Injection under ultrasound guidance completed Annabel Jiménez MD [address] , [address], [place], [address], [place] [facility] 08/15/2022 16:42:56 3 Ankle Steroid Injection under ultrasound guidance completed Annabel Jiménez MD [address] , [address], [place], [address], [place] [facility] 05/12/2022 14:59:17 3 Ankle Steroid Injection under ultrasound guidance completed Annabel Jiménez MD [address] , [address], [place], [address], [place] [facility] 03/14/2022 10:14:18 2 Ankle Steroid Injection under ultrasound guidance completed Annabel Jiménez MD [address] , [address], [place], [address], [place] [facility] 12/29/2021 09:33:19 2 Intra-articular shoulder steroid injection under ultrasound guidance completed Annabel Jiménez MD [address] , [address], [place], [address], [place] [facility] 11/18/2021 09:21:28 2 Ankle Steroid Injection under ultrasound guidance completed Annabel Jiménez MD [address] [facility] , [address], [place], [address], [place] [facility] 08/12/2021 09:56:04 2 Ankle Steroid Injection under ultrasound guidance completed Annabel Jiménez MD [address] [facility] , [address], [place], [address], [place] [facility] 08/05/2021 10:03:36 2 Ankle Steroid Injection under ultrasound guidance completed Annabel Jiménez MD [address] [facility] , [address], [place], [address], [place] [facility] 05/06/2021 14:49:11 2 Ankle Steroid Injection under ultrasound guidance completed Annabel Jiménez MD [address] [facility] , [address], [place], [address], [place] [facility] 04/22/2021 14:25:27 1 Ankle Steroid Injection under ultrasound guidance completed Annabel Jiménez MD [address] [facility] , [address], [place], [address], [place] [facility] 01/21/2021 13:44:35 1 Ankle Steroid Injection under ultrasound guidance completed Annabel Jiménez MD [address] [facility] , [address], [place], [address], [place] [facility] 12/14/2020 13:55:01 1 Intra-articular shoulder steroid injection under ultrasound guidance completed Annabel Jiménez MD [address] , [address], [place], [address], [place] [facility] 10/14/2020 13:23:34 1 Ankle Steroid Injection under ultrasound guidance completed Annabel Jiménez MD [address] , [address], [place], [address], [place] [facility] 09/17/2020 15:57:28 1 Ankle Steroid Injection under ultrasound guidance completed Annabel Jiménez MD [address] , [address], [place], [address], [place] [facility] 09/07/2020 15:37:08 1 Ankle Steroid Injection under ultrasound guidance completed Annabel Jiménez MD [address] , [address], [place], [address], [place] [facility] 05/14/2020 09:48:09 1 Ankle Steroid Injection under ultrasound guidance completed Annabel Jiménez MD [address] , [address], [place], [address], [place] [facility] 04/16/2020 10:56:43 0 Intra-articular Knee Steroid Injection completed Annabel Jiménez MD [address] , [address], [place], [address], [place] [facility] 09/18/2019 13:42:42 0 Intra-articular Knee Steroid Injection completed Annabel Jiménez MD [address] , [address], [place], [address], [place] [facility] 07/04/2019 15:37:27 0 Intra-articular Knee Steroid Injection completed Annabel Jiménez MD [address] , [address], [place], [address], [place] [facility] 06/27/2019 14:51:39 0 Intra-articular Knee Steroid Injection completed Annabel Jiménez MD [address] , [address], [place], [address], [place] [facility] 04/22/2019 11:50:11 9 Intra-articular Knee Steroid Injection completed Annabel Jiménez MD [address] [facility] , [address], [place], [address], [place] [facility] 01/14/2019 09:05:21 9 Intra-articular Knee Steroid Injection completed Annabel Jiménez MD [address] [facility] , [address], [place], [address], [place] [facility] 01/07/2019 10:25:45 9 Intra-articular Knee Steroid Injection completed Annabel Jiménez MD [address] [facility] , [address], [place], [address], [place] [facility] 10/10/2018 13:35:06 9 Intra-articular Knee Steroid Injection completed Annabel Jiménez MD [address] [facility] , [address], [place], [address], [place] [facility] 09/25/2018 13:42:43 9 Intra-articular Knee Steroid Injection completed Annabel Jiménez MD [address] [facility] , [address], [place], [address], [place] [facility] 07/04/2018 15:06:53 9 Intra-articular Knee Steroid Injection completed Annabel Jiménez MD [address] [facility] , [address], [place], [address], [place] [facility] 06/26/2018 14:43:30 total knee replacement completed Annabel Jiménez MD [address] [facility] , [address], [place], [address], [place] [facility] 04/10/2020 10:23:05 Imaging Results None recorded. Procedure Notes None recorded. Medical Equipment None Reported. Allergies Allergen ID Allergen Name Allergen Category Reaction Reaction Severity Criticality Documentation Date Start Date Code Code System Note Provider Name and Address Organization Details Recorded Time 70779 quinapril medicatio n Not available Not available Not available 10/10/2018 60317 RxNorm Flush ing, ear swish ing Macarena Contreras neha, [place] - [facility] 9 13:15:15 Medications Name Sig [...] ular syringe VACCINAT ION ADMINIST ERED BY PHARMACI ST 06/21 completed Not Available Not Available [...] t Available Vitals Date Recorded Body height Heart rate Oxygen saturation Oxygen saturation in Arterial blood by Pulse oximetry Pain severity - 0-10 verbal numeric rating [Score] - Reported Systolic blood pressure Diastolic blood pressure Provider Name and Address Organization Details Last Updated DateTime 5 149.86 cm 96 /min 95 % 95 % 10 170 mm[Hg] 80 mm[Hg] Ally Arango [place] - [facility] 5 14:36:56 Social History Question Answer Notes LastModified by Organizat ion Details LastModified Time Tobacco Smoking Status Former Smoker Quit > 15 Not Available [employer] 11/22/2019 03:16:10 What Is Your Level Of Alcohol Consumption? Occasional [id number] Information not available 11/22/2019 Are You Currently Employed? No [id number] Information not available 11/22/2019 Which Illicit Or Recreational Drugs Have You Used? No [id number] Information not available 11/22/2019 Education 12 Information no t available 06/21/2018 What Is Your Occupation? Retired [id number] Information not available 11/22/2019 Live Alone Or With Others? With Others Information not available 06/21/2018 Marital Status Informatio n not available 06/21/2018 What Was The Date Of Your Most Recent Tobacco Screening? 07/04/2018 [id number] Information not available 11/22/2019 How Many Years Have You Smoked Tobacco? 5 [id number] Information not available 11/22/2019 Sex: Unknown Functional [...] SNOMED-CT Code Diagnosis ICD10 Code Diagnosis Note [id number] Annabel Jiménez MD PAIN OFFICE [address] [place] [address] 04/04/2024 14:18:40 04/04/2024 16:13:38 Osteoarthritis of ankle 409435407 M19.072 Pain of le ft ankle joint 8115899030 1537450 M25.572 Health Concerns Section Related Observation LastModified by Organization Detai ls LastModified Time None Recorded Concern Status LastModified by Organization Details LastModified Time None Recorded Payers Encounter Date Sequence Insurance Name Policy Number Policy Sykes Covered Member ID Sykes Member ID Guarantor Name 04/04/2024 1 [facility] (MEDICARE REPLACEMENT HMO) Audra Aponte [id number] Audra Fadi Notes Date Note Type Note Provider Name and Address Organization Details Recorded Time 04/04/2024 text/html She is here for a left ankle steroid injection under ultrasound guidance. Annabel Jiménez MD [address] , [address], [place], [address], [facility] - Pain Management 04/05/2024 09:12:46 OBGyn Episode No OBEpisode recorded.
--- OUTSIDE RECORDS SUMMARY | 2024-04-25 07:47 | XMS_ITS ---
Author Organization Ignacio Bray MD Address [address] [facility] [address] [place] [phone] Care Team Providers Care Layaway Clerk Name Role Phone Ignacio Bray Primary Care Provider [phone] REASON FOR VISIT er Encounters Encounter Location Date Provider Diagnosis Ignacio Bray MD [address] [facility] [address] [place] [phone] 03/28/2024 Ignacio Bray Plan Of Treatment Next Appt Details Provider Name:Ignacio Burris ier, 05/02/2024 09:30:00 AM, [address] [place] [address], Suite [facility], [place], [place], [phone], Progress Notes * Gala WEEKSeDOB: (73 yo F)Acc No.[id number]:03/28/2024 Patient:?Audra WEEKS :1950???Age:73 Y???Sex:Female Address:[address], [place], [address] * true * Date:? Generated for Printi ng/Faxing/eTransmitting on:?04/25/2024 07:46 AM EDT
== END 2024-04-25 07:43 | disposition home or self-care (01) ==
LOC: HO.MAMMO 07:42
PROVIDERS: PCP Internal Medicine; Visit Provider Internal Medicine
DX: Z12.31 Encounter for screening mammogram for malignant neoplasm of breast (principal); I10 Essential (primary) hypertension; R73.03 Prediabetes; D69.6 Thrombocytopenia, unspecified; Z00.00 Encounter for general adult medical examination without abnormal findings
CPT/HCPCS: 77063; 77067; 80053; 80061; 83036; 85025

== ENCOUNTER → 2024-04-25 07:45 | Outpatient (BNV) | payer MEDICARE, SELFPAY | PROVIDERS: PCP Internal Medicine; Visit Provider Internal Medicine | DX: Z12.31 Encounter for screening mammogram for malignant neoplasm of breast (principal) | CPT/HCPCS: 77063; 77067 ==

== ENCOUNTER 2024-04-25 11:11 | Outpatient (REF) | payer MEDICARE, SELFPAY ==
[2024-04-25 11:16] LABS: MANUAL DIFF FLAG NO
[2024-04-25 11:37] LABS: Basophils Percent Auto 0.3 % (0-2); Eosinophils Absolute Auto 0.1 X10*3/uL (0.0-0.4); Hematocrit 41.6 % (37.0-47.0); Hemoglobin 13.7 g/dl (12.0-16.0); Imm Gran Abs Auto 0.04 X10*3/uL (0.00-0.03); Imm Gran Pct Auto 0.4 % (0.0-0.4); Lymphocytes Absolute Auto 2.3 X10*3/uL (1.2-4.9); Lymphocytes Percent Auto 23.8 % (20-40); Mean Corpuscular HGB Conc 32.9 g/dl (31.0-35.0); Mean Corpuscular Hemoglobin 29.8 pg (27.0-33.0); Mean Corpuscular Volume 90.6 fL (80.0-98.0); Mean Platelet Volume 12.2 fL (9.4-12.3); Monocytes Absolute Auto 0.7 X10*3/uL (0.1-1.2); Monocytes Percent Auto 7.6 % (2-11); Neutrophils Absolute Auto 6.5 x10*3/uL (2.0-8.3); Neutrophils Percent Auto 66.9 % (45-73); Platelet Count 211 X10*3/uL (160-400); Red Blood Count 4.59 X10*6/uL (4.20-5.50); White Blood Count 9.8 X10*3/uL (4.8-10.8)
[2024-04-25 11:52] LABS: Alanine Aminotransferase 23 U/L (0-31); Albumin Level 4.1 g/dL (3.5-5.0); Alkaline Phosphatase 61 U/L (39-117); Anion Gap 11 (12-20); Aspartate Amino Transferase 24 U/L (5-31); Bilirubin Total 0.6 mg/dL (0.0-1.0); Blood Urea Nitrogen 15 mg/dL (9-16); Calcium 9.8 mg/dL (8.4-10.2); Carbon Dioxide 31 mmol/L (22-29); Chloride 102 mmol/L (96-108); Cholesterol 174 mg/dL (<200); Estimated Average Glucose 126 mg/dL; Estimated Glomerular Filt Rate > 60; Glucose Fasting 106 mg/dL (60-99); HDL Cholesterol 79 mg/dL (>40); Hemoglobin A1C 149.7595 umol/L; LDL Cholesterol Calculated 76 mg/dL (<100); Potassium 3.1 mmol/L (3.3-5.1); Sodium 141 mmol/L (135-145); Total Hemoglobin (HGBA1C) 3575.9782 umol/L; Total Protein 7.4 g/dL (6.5-8.0); Triglycerides 96 mg/dL (<150)
== END 2024-04-25 11:12 | disposition home or self-care (01) ==
LOC: HO.LNP 11:11
PROVIDERS: Visit Provider Internal Medicine
DX: Z13.89 Encounter for screening for other disorder (principal)
CPT/HCPCS: 80053; 80061; 83036; 85025

== ENCOUNTER 2024-04-26 10:58 | Outpatient (REF) | payer MEDICARE, SELFPAY ==
[2024-04-26 12:00] LABS: Appearance Urine Clear; Color Urine Yellow; Glucose Urine UA Negative (Negative); Leukocyte Esterase Urine Small (1+) (Negative); Nitrite Urine Negative (Negative); UMIC TRIGGER UACC YES; Urine Blood Negative (Negative); Urine Ketones Negative (Negative); Urine Protein Negative (Neg-Trace)
[2024-04-26 12:09] LABS: Bacteria Urine None Seen (None Seen); Hyaline Casts Urine 0-2 /LPF (0-2); RBC Urine 0-2 /HPF (0-2); Squamous Epithelial Cell Urine 0-2 /HPF (0-2); UACC Culture Trigger YES; WBC Urine 0-5 /HPF (0-5)
[2024-04-26 12:23] LABS: Creatinine Urine 31.08 mg/dL; Microalbum/Creatinine Ratio Ur 19.3 ug/mg cr (<30)
== END 2024-04-26 10:59 | disposition home or self-care (01) ==
LOC: HO.LNP 10:58
PROVIDERS: Visit Provider Internal Medicine
DX: I10 Essential (primary) hypertension (principal); R73.03 Prediabetes
CPT/HCPCS: 81001; 82043; 82570; 87086

== ENCOUNTER 2024-05-31 09:42 | Outpatient (REF) | payer MEDICARE, SELFPAY ==
--- OUTSIDE RECORDS SUMMARY | 2024-05-31 09:57 | XMS_ITS | Data Portability ---
Author Organization [place] [facility] PAIN OFFICE Address [address] [facility] [address] [place] [address] Care Team Providers Care Customer Care Manager Name Role Phone MARVINANA Primary Care Provider [phone] Assessment Encounter Date Assessment Date Assessment LastModified [...] By Organization Details Last Modified Time 09/14/2023 [id number] She was advised against bed rest lasting longer than four days and to continue activities as tolerated. [email or web address] Not available 09/14/2023 13:40:55 09/25/2023 [id number] She was advised against bed rest lasting longer than four days and to continue activities as tolerated. [email or web address] Not available 09/25/2023 16:38:18 12/25/2023 [id number] She was advised against bed rest lasting longer than four days and to continue activities as tolerated. [email or web address] Not available 12/25/2023 11:54:06 01/01/2024 [id number] She was advised against bed rest lasting longer than four days and to continue activities as tolerated. [email or web address] Not available 01/01/2024 16:54:06 04/04/2024 [id number] She was advised against bed rest lasting longer than four days and to continue activities as tolerated. [email or web address] Not available 04/04/2024 15:11:57 Reason for Referral None Reported. Problems Name Problem SNOMED Code Status Onset Date Resolution Date Notes Provider Name and Address Organization Details Recorded Time Osteoarthritis of knee 251978128 Active Annabel helms MD [address] [facility] [address], [place], [address], [place] [facility] 9 08:54:23 Osteoarthritis of ankle 878319163 Active Annabel helms MD [address] [facility] , [address], [place], [address], [place] [facility] 14:45:45 Problem Notes None recorded. Procedures Surgical History Date Name Laterality Status Provider Name and Address Organization Details Recorded Time Ankle Steroid Injection under ultrasound guidance completed Annabel Jiménez MD [address], [place], [address], [place] [facility] 04/04/2024 15:12:07 4 Ankle Steroid Injection under ultrasound guidance completed Annabel Jiménez MD [address] , [address], [place], [address], [place] [facility] 01/01/2024 16:54:16 4 Ankle Steroid Injection under ultrasound guidance completed Annabel Jiménez MD [address] , [address], [place], [address], [place] [facility] 12/25/2023 11:54:15 4 Ankle Steroid Injection under ultrasound guidance completed Annabel Jiménez MD [address] , [address], [place], [address], [place] [facility] 09/25/2023 16:38:27 4 Ankle Steroid Injection under ultrasound guidance completed Annabel Jiménez MD [address] , [address], [place], [address], [place] [facility] 09/14/2023 13:41:04 4 Ankle Steroid Injection under ultrasound guidance completed Annabel Jiménez MD [address] , [address], [place], [address], [place] [facility] 07/17/2023 10:54:22 4 Ankle Steroid Injection under ultrasound guidance completed Annabel Jiménez MD [address] , [address], [place], [address], [place] [facility] 06/12/2023 10:10:06 4 Ankle Steroid Injection under ultrasound guidance completed Annabel Jiménez MD [address] , [address], [place], [address], [place] [facility] 03/20/2023 11:00:33 4 Ankle Steroid Injection under ultrasound guidance completed Annabel Jiménez MD [address] , [address], [place], [address], [place] [facility] 03/13/2023 09:41:56 3 Ankle Steroid Injection under ultrasound guidance completed Annabel Jiménez MD [address] , [address], [place], [address], [place] [facility] 12/12/2022 10:59:24 3 Ankle Steroid Injection under ultrasound guidance completed Annabel Jiménez MD [address] , [address], [place], [address], [place] [facility] 12/05/2022 09:38:34 3 Ankle Steroid Injection under ultrasound guidance completed Annabel Jiménez MD [address] [facility] , [address], [place], [address], [place] [facility] 08/25/2022 09:41:45 3 Ankle Steroid Injection under ultrasound guidance completed Annabel Jiménez MD [address] [facility] , [address], [place], [address], [place] [facility] 08/15/2022 16:42:56 3 Ankle Steroid Injection under ultrasound guidance completed Annabel Jiménez MD [address], [place], [address], [place] [facility] 05/12/2022 14:59:17 3 Ankle Steroid Injection under ultrasound guidance completed Annabel Jiménez MD [address] [facility] , [address], [place], [address], [place] [facility] 03/14/2022 10:14:18 2 Ankle Steroid Injection under ultrasound guidance completed Annabel Jiménez MD [address], [place], [address], [place] [facility] 12/29/2021 09:33:19 2 Intra-articular shoulder steroid injection under ultrasound guidance completed Annabel Jiménez MD [address], [place], [address], [place] [facility] 11/18/2021 09:21:28 2 Ankle Steroid Injection under ultrasound guidance completed Annabel Jiménez MD [address] [facility] , [address], [place], [address], [place] [facility] 08/12/2021 09:56:04 2 Ankle Steroid Injection under ultrasound guidance completed Annabel Jiménez MD [address] , [address], [place], [address], [place] [facility] 08/05/2021 10:03:36 2 Ankle Steroid Injection under ultrasound guidance completed Annabel Jiménez MD [address] , [address], [place], [address], [place] [facility] 05/06/2021 14:49:11 2 Ankle Steroid Injection under ultrasound guidance completed Annabel Jiménez MD [address] , [address], [place], [address], [place] [facility] 04/22/2021 14:25:27 1 Ankle Steroid Injection under ultrasound guidance completed Annabel Jiménez MD [address] , [address], [place], [address], [place] [facility] 01/21/2021 13:44:35 1 Ankle Steroid Injection under ultrasound guidance completed Annabel Jiménez MD [address] , [address], [place], [address], [place] [facility] 12/14/2020 13:55:01 1 Intra-articular shoulder steroid injection under ultrasound guidance completed Annabel Jiménez MD [address] , [address], [place], [address], [place] [facility] 10/14/2020 13:23:34 1 Ankle Steroid Injection under ultrasound guidance completed Annabel Jiménez MD [address] , [address], [place], [address], [place] [facility] 09/17/2020 15:57:28 1 Ankle Steroid Injection under ultrasound guidance completed Annabel Jiménez MD [address] , [address], [place], [address], [place] [facility] 09/07/2020 15:37:08 1 Ankle Steroid Injection under ultrasound guidance completed Annabel Jiménez MD [address] , [address], [place], [address], [place] [facility] 05/14/2020 09:48:09 1 Ankle Steroid Injection under ultrasound guidance completed Annabel Jiménez MD [address] , [address], [place], [address], [place] [facility] 04/16/2020 10:56:43 0 Intra-articular Knee Steroid Injection completed Annabel Jiménez MD [address] , [address], [place], [address], [place] [facility] 09/18/2019 13:42:42 0 Intra-articular Knee Steroid Injection completed Annabel Jiménez MD [address] , [address], [place], [address], [place] [facility] 07/04/2019 15:37:27 0 Intra-articular Knee Steroid Injection completed Annabel Jiménez MD [address] , [address], [place], [address], [place] [facility] 06/27/2019 14:51:39 0 Intra-articular Knee Steroid Injection completed Annabel Jiménez MD [address] , [address], [place], [address], [place] [facility] 04/22/2019 11:50:11 9 Intra-articular Knee Steroid Injection completed Annabel Jiménez MD [address] , [address], [place], [address], [place] [facility] 01/14/2019 09:05:21 9 Intra-articular Knee Steroid Injection completed Annabel Jiménez MD [address] , [address], [place], [address], [place] [facility] 01/07/2019 10:25:45 9 Intra-articular Knee Steroid Injection completed Annabel Jiménez MD [address] , [address], [place], [address], [place] [facility] 10/10/2018 13:35:06 9 Intra-articular Knee Steroid Injection completed Annabel Jiménez MD [email or web address] , [address], [place], [address], [facility] 09/25/2018 13:42:43 9 Intra-articular Knee Steroid Injection completed Annabel Jiménez MD [email or web address] , [address], [place], [address], [facility] 07/04/2018 15:06:53 9 Intra-articular Knee Steroid Injection completed Annabel Jiménez MD [email or web address] , [address], [place], [address], [facility] 06/26/2018 14:43:30 total knee replacement completed Annabel Jiménez MD [email or web address] , [address], [place], [address], [facility] 04/10/2020 10:23:05 Imaging Results None recorded. Procedure Notes None recorded. Medical Equipment None Reported. Allergies Allergen ID Allergen Name Allergen Category Reaction Reaction Severity Criticality Documentation Date Start Date Code Code System Note Provider Name and Address Organization Details Recorded Time 21479 quinapril medicatio n Not available Not available Not available 10/10/2018 41335 RxNorm Flush ing, ear swish ing Macarena solomon, [place] [facility] 9 13:15:15 Medications Name [...] ular syringe VACCINAT ION ADMINIST ERED BY [employer] [facility] 06/21 completed Not Available Not Available [...] Is Your Level Of Alcohol Consumption? Occasional [id number] Information not available 11/22/2019 Are You Currently Employed? No [id number] Information not available 11/22/2019 Which Illicit Or Recreational Drugs Have You Used? No [id number] Information not available 11/22/2019 Education 12 Information no t available 06/21/2018 What Is Your Occupation? Retired [id number] Information not available 11/22/2019 Live Alone Or With Others? With Others Information not available 06/21/2018 Marital Status [email or web address] Informatio n not available 06/21/2018 What Was The Date Of Your Most Recent Tobacco Screening? 07/04/2018 [id number] Information not available 11/22/2019 How Many Years Have You Smoked Tobacco? 5 [id number] Information not available 11/22/2019 Sex: Unknown Functional [...] SNOMED-CT Code Diagnosis ICD10 Code Diagnosis Note 43895 Annabel Jiménez MD PAIN OFFICE [address] [place] [address] 06/21/2018 13:33:55 06/22/2018 09:07:36 Osteoarthritis of knee 628782673 M17.0 06995 Annabel Jiménez MD PAIN OFFICE [address] [place] [address] 06/26/2018 14:05:04 06/26/2018 14:46:10 Osteoarthritis of knee 568019778 M17.0 40376 Annabel Jiménez MD PAIN OFFICE [address] [place] [address] 07/04/2018 14:14:53 07/04/2018 15:08:53 Osteoarthritis of knee 725970165 M17.0 59352 Annabel Jiménez MD PAIN OFFICE [address] [facility] [place] [address] 09/25/2018 13:03:34 09/25/2018 13:44:25 Osteoarthritis of knee 505191580 M17.0 22677 Annabel Jiménez MD [facility] [address] [facility] [place] [address] 10/10/2018 12:55:11 10/10/2018 13:54:42 Osteoarthritis of knee 946993878 M17.0 89513 Annabel Jiménez MD [facility] [address] [place] [address] 01/07/2019 09:53:52 01/07/2019 10:27:48 Osteoarthritis of knee 097197661 M17.0 31322 Annabel Jiménez MD [facility] PA[facility] [email or web address] [facility] [place] [address] 01/14/2019 08:15:02 01/14/2019 10:45:57 Osteoarthritis of knee 055547638 M17.0 98403 Annabel Jiménez MD [facility] PA[facility] [address] [place] [address] 04/22/2019 10:51:02 04/22/2019 13:03:12 Osteoarthritis of knee 068741362 M17.0 64858 Annabel Jiménez MD [facility] PA[facility] [address] [place] [address] 06/27/2019 14:23:21 06/27/2019 14:53:17 Osteoarthritis of knee 557318161 M17.0 63906 Annabel Jiménez MD [facility] PA[facility] [address] [place] [address] 07/03/2019 14:16:33 07/04/2019 15:39:06 Osteoarthritis of knee 533909512 M17.0 81632 Annabel Jiménez MD [facility] PA[facility] [email or web address] [place] [address] 09/18/2019 13:03:06 09/18/2019 13:44:29 Osteoarthritis of knee 351915999 M17.0 18236 Annabel Jiménez MD [facility] [email or web address] [place] [address] 04/10/2020 10:10:11 04/14/2020 16:22:26 Pain of left ankle joint 5799532976 2860752 M25.572 Pain of ri ght ankle joint 1082345414 2093048 M25.571 Osteoarthr itis of knee 630529619 M17.0 86147 Annabel Jiménez MD PAIN OFFICE [email or web address] [address] 04/15/2020 13:53:50 04/16/2020 10:59:09 Pain of left ankle joint 5095245452 6660117 M25.572 Pain of ri ght ankle joint 0487033718 1574003 M25.571 Osteoarthr itis of knee 383782331 M17.0 31851 Annabel Jiménez MD PAIN OFFICE [email or web address] [address] 05/14/2020 08:23:15 05/14/2020 09:49:34 Pain of left ankle joint 9027142636 6392419 M25.572 Pain of ri ght ankle joint 2058744685 4394508 M25.571 Osteoarthr itis of knee 804814084 M17.0 46213 Annabel Jiménez MD [facility] PA[facility] [email or web address] [address] 09/07/2020 14:26:39 09/07/2020 15:39:53 Pain of left ankle joint 2823751700 0056940 M25.572 Pain of ri ght ankle joint 2631180675 8861748 M25.571 Osteoarthr itis of knee 979024757 M17.0 69104 Annabel Jiménez MD PAIN OFFICE [address] [place] [address] 09/17/2020 14:50:14 09/17/2020 15:59:01 Pain of left ankle joint 9523968706 9197895 M25.572 Pain of ri ght ankle joint 2631341195 9168747 M25.571 Osteoarthr itis of knee 920128821 M17.0 53647 Annabel Jiménez MD [facility] [address] [place] [address] 10/14/2020 12:55:51 10/14/2020 13:49:42 Subacromial bursitis of left shoulder 9841971988 371300 M75.52 42159 Annabel Jiménez MD PAIN OFFICE [email or web address] [address] 12/14/2020 13:13:45 12/14/2020 13:56:58 Pain of left ankle joint 8508167632 5811712 M25.572 Pain of ri ght ankle joint 7268258640 4594899 M25.571 Osteoarthr itis of knee 332387949 M17.0 26853 Annabel Jiménez MD PAIN OFFICE [address] [place] [address] 01/21/2021 12:56:25 01/21/2021 13:50:39 Pain of left ankle joint 0693431567 6672858 M25.572 Pain of ri ght ankle joint 2545278532 4892600 M25.571 Osteoarthr itis of knee 764870728 M17.0 21421 Annabel Jiménez MD [facility] [address] [place] [address] 04/22/2021 13:11:41 04/22/2021 14:27:29 Pain of left ankle joint 1186903370 1591487 M25.572 Pain of ri ght ankle joint 3065843429 0628674 M25.571 Osteoarthr itis of knee 511033779 M17.0 24197 Annabel Jiménez MD PAIN OFFICE [address] [place] [address] 05/06/2021 10:15:25 05/06/2021 16:13:18 Pain of left ankle joint 1318040763 4555809 M25.572 Pain of ri ght ankle joint 5367542400 3398339 M25.571 Osteoarthr itis of knee 235654695 M17.0 97289 Annabel Jiménez MD PAIN OFFICE [address] [place] [address] 08/05/2021 09:19:25 08/05/2021 10:05:54 Pain of left ankle joint 7709338500 5767086 M25.572 Pain of ri ght ankle joint 6177761419 3144662 M25.571 Osteoarthr itis of knee 605369896 M17.0 36662 Annabel Jiménez MD PAIN OFFICE [address] [facility] [address] 08/12/2021 08:24:00 08/12/2021 09:58:24 Pain of left ankle joint 4817829574 4287364 M25.572 Pain of ri ght ankle joint 6684039252 5133216 M25.571 Osteoarthr itis of knee 195022256 M17.0 11980 Annabel Jiménez MD PAIN OFFICE [address] [facility] [address] 11/18/2021 08:38:11 11/18/2021 09:40:46 Arthritis of joint of left shoulder region 6125887345 246794 M13.812 83403 Annabel Jiménze MD [facility] PAIN OFFICE [address] [facility] [place] [address] 12/29/2021 08:28:43 12/29/2021 09:38:39 Pain of left ankle joint 5870350327 3764926 M25.572 Pain of ri ght ankle joint 6157376688 3640029 M25.571 Osteoarthr itis of knee 026820350 M17.0 57022 Annabel Jiménez MD PAIN OFFICE [address] [facility] [place] [address] 03/14/2022 09:15:17 03/14/2022 10:16:28 Pain of left ankle joint 3292900384 0645077 M25.572 Pain of ri ght ankle joint 0211171635 9713564 M25.571 Osteoarthr itis of knee 093511662 M17.0 64747 Annabel Jiménez MD PAIN OFFICE [address] [facility] [place] [address] 05/12/2022 14:16:21 05/12/2022 15:10:08 Pain of left ankle joint 8037705874 5054872 M25.572 Pain of ri ght ankle joint 9878167106 9396869 M25.571 Osteoarthr itis of knee 608539617 M17.0 74194 Annabel Jiménez MD PAIN OFFICE [email or web address] [facility] [place] [address] 08/15/2022 09:50:22 08/15/2022 16:56:25 Pain of left ankle joint 6482084185 7571704 M25.572 Pain of ri ght ankle joint 2308491660 2696418 M25.571 Osteoarthr itis of knee 502000294 M17.0 53659 Annabel Jiménez MD PAIN OFFICE [email or web address] [facility] [place] [address] 08/25/2022 08:55:25 08/25/2022 09:59:09 Osteoarthritis of ankle 440091194 M19.079 Pain of le ft ankle joint 8018303827 6498019 M25.572 Pain of ri ght ankle joint 2159130848 3098580 M25.571 Osteoarthr itis of knee 847587670 M17.0 19787 Annabel Jiménez MD PAIN OFFICE [address] [facility] [place] [address] 12/05/2022 08:54:19 12/05/2022 11:33:45 Pain of left ankle joint 0347905883 4499426 M25.572 Pain of ri ght ankle joint 3134082374 2277496 M25.571 Osteoarthr itis of knee 567980304 M17.0 47428 Annabel Jiménez MD PAIN OFFICE [address] [place] [address] 12/12/2022 08:53:55 12/12/2022 11:46:14 Osteoarthritis of ankle 308375267 M19.079 Pain of le ft ankle joint 8335278830 3133823 M25.572 Pain of ri ght ankle joint 6775909962 9464328 M25.571 Osteoarthr itis of knee 438716122 M17.0 43695 Annabel Jiménez MD PAIN OFFICE [address] [place] [address] 03/13/2023 08:58:50 03/13/2023 10:46:30 Osteoarthritis of ankle 818525522 M19.079 Pain of le ft ankle joint 1608526110 5960138 M25.572 Pain of ri ght ankle joint 5479798277 0973105 M25.571 Osteoarthr itis of knee 598094744 M17.0 31701 Annabel Jiménez MD PAIN OFFICE [address] [place] [address] 03/20/2023 08:57:46 03/20/2023 11:04:37 Pain of right ankle joint 9903299070 2859686 M25.571 Osteoarthr itis of knee 171472561 M17.0 Osteoarthr itis of ankle 154253033 M19.071 49092 Annabel Jiménez MD PAIN OFFICE [address] [place] [address] 06/12/2023 08:56:14 06/12/2023 10:21:55 Osteoarthritis of ankle 916035221 M19.071 55912 Annabel Jiménez MD PAIN OFFICE [address] [place] [address] 07/17/2023 09:30:59 07/17/2023 11:01:23 Osteoarthritis of ankle 584148280 M19.072 Pain of le ft ankle joint 3557569456 1791503 M25.572 61739 Annabel iJménez MD [facility] PA[facility] [address] [facility] [place] [address] 09/14/2023 13:03:32 09/14/2023 14:09:55 Osteoarthritis of ankle 080382263 M19.072 Pain of le ft ankle joint 3355736025 1607906 M25.572 56544 Annabel Jiménez MD [facility] PAIN OFF[facility] [address] [facility] [place] [address] 09/25/2023 13:02:44 09/25/2023 16:46:33 Degenerative joint disease of ankle AND/OR foot 55742543 M19.071 33452 Annabel Jiménez MD [facility] PAIN OFFICE [address] [facility] [place] [address] 12/25/2023 11:13:40 12/25/2023 16:21:08 Osteoarthritis of ankle 039456307 M19.072 Pain of le ft ankle joint 9135452642 5598963 M25.572 36127 Annabel Jiménez MD [facility] PAIN OFFICE [address] [facility] [place] [address] 01/01/2024 13:00:13 01/01/2024 16:56:01 Osteoarthritis of ankle 451104003 M19.072 Degenerati ve joint disease of ankle AND/OR foot 01779965 M19.071 06829 Annabel Jiménez MD [facility] PAIN OFFICE [address] [facility] [place] [place] [address] 04/04/2024 14:18:40 04/04/2024 16:13:38 Osteoarthritis of ankle 002433229 M19.072 Pain of le ft ankle joint 4138215267 4074775 M25.572 Health Concerns Section Related Observation LastModified by Organization Detai ls LastModified Time None Recorded Concern Status LastModified by Organization Details LastModified Time None Recorded Advance Directives Directive None Recorded Payers Encounter Date Sequence Insurance Name Policy Number Policy Sykes Covered Member ID Sykes Member ID Guarantor Name 09/14/2023 1 [facility] - COMMUNITY CARE PLAN (HMO) Audra Cristóbalzniar [id number] Audra Kuzniar 09/25/2023 1 [facility] - COMMUNITY CARE PLAN (HMO) Audra Kuzniar [id number] Audra Kuzniar 12/25/2023 1 [facility] - COMMUNITY CARE PLAN (HMO) Audra Kuzniar [id number] Audra Kuzniar 01/01/2024 1 [facility] - COMMUNITY CARE PLAN (HMO) Audra Kuzniar [id number] Audra Kuzniar 04/04/2024 1 [facility] - [facility] PLAN (MEDICARE REPLACEMENT HMO) Audraroverto Ambrociozniar [id number] Audra Kuzniar Notes Date Note Type Note Provider Name and Address Organization Details Recorded Time 09/14/2023 text/html She is here for a left ankle steroid injection under ultrasound guidance. Annabel Jiménez MD [address] [facility] , [address], [place], [address], [place] [facility] 09/14/2023 14:13:00 09/25/2023 text/html She is here for a Right ankle steroid injection under ultrasound guidance Annabel Jiménez MD [address] , [address], [place], [address], [place] [facility] 09/26/2023 10:18:07 12/25/2023 text/html She is here for a left ankle steroid injection under ultrasound guidance. Annabel Jiménez MD [address] , [address], [place], [address], [place] [facility] 12/25/2023 16:22:19 01/01/2024 text/html She is here for a Right ankle steroid injection under ultrasound guidance Annabel Jiménez MD [address] , [address], [place], [address], [place] [facility] 01/01/2024 16:58:51 04/04/2024 text/html She is here for a left ankle steroid injection under ultrasound guidance. Annabel Jiménez MD [address] [place] [address] , [address], [place], [address], [facility] 04/05/2024 09:12:46 OBGyn Episode No OBEpisode recorded.
[2024-05-31 10:15] LABS: Potassium 3.7 mmol/L (3.3-5.1)
== END 2024-05-31 09:43 | disposition home or self-care (01) ==
LOC: HO.LNP 09:42
PROVIDERS: Visit Provider Internal Medicine
DX: E87.6 Hypokalemia (principal)
CPT/HCPCS: 84132

== ENCOUNTER 2024-08-04 06:33 | Emergency (ER) | payer MEDICARE, SELFPAY ==
[2024-08-04 06:37] VITALS: BP 158/70; PULSE 82; RESP 18; TEMP 36.9; O2SAT 99; BMI 27.3
[2024-08-04 07:55] VITALS: BP 151/81; PULSE 80; RESP 15; TEMP 36.8; O2SAT 95
--- NOTE | 2024-08-04 08:15 | ED_ITS ---
HPI - General Adult General Chief complaint: General Medical Stated complaint: neck pain Time Seen by Provider: 08/04/24 08:07 Source: patient Mode of arrival: ambulatory Limitations: no limitations History of Present Illness ED Provider: Risa Roman PA-C HPI narrative: Patient is a 73 year old assigned female at with a history of HTN, glaucoma, and high cholesterol presenting to the emergency department today with left sided neck pain. Patient states that over the last 4 days she has had left sided neck pain / stiffness that is making it difficult to sleep. States that she has taken tylenol with minimal relief. Patient states she is able to move her neck in all directions. Patient denies any dizziness, lightheadedness, abdominal pain, nausea, vomiting, fever, chills, blurry vision, double vision, loss of vision, chest pain, difficulty breathing, shortness of breath, back pain, night sweats, pain with urination, increased urinary frequency, increased urinary urgency, blood in her urine or stool, syncope or a near syncopal episode, recent trauma or falls, bowel incontinence, bladder incontinence, or any other complaints at this time. Onset (ago): day(s) () Relieving factors: none Exacerbating factors: none Related Data Home Medications ?Medication ?Instructions ?Recorded ?Confirmed latanoprost 0.005 % eye drops 1 drp ophthalmic (eye) D AILY 11/04/19 05/08/23 simvastatin 40 mg tablet 40 mg PO BEDTIME 11/04/19 betaxolol 0.25 % eye 1 drp ophthalmic (eye) DAILY 11/27/19 05/08/23 drops,suspension (Betoptic S) glaucoma cholecalciferol (vitamin D3) 25 25 mcg PO DAILY 05/08/23 mcg (1,000 unit) capsule (Vitamin D3) valsartan 80 1 tab PO DAILY 11/27/1903/01 mg-hydrochlorothiazide 12.5 mg tablet ibuprofen 600 mg tablet 600 mg PO Q6H PRN 05/05/22 0 05/08/23 rosuvastatin 20 mg tablet 20 mg PO DAILY 05/05/2203/01 timolol maleate 0.5 % eye drops 1 drp ophthalmic (eye) DAILY 05/05/22 05/08/23 Previous Rx's ?Medication ?Instructions ?Recorded docusate sodium 100 mg capsule 100 mg PO BID 30 days # 60 caps 12/12/19 scopolamine base 1 mg over 3 days 1.5 mg EAR-BEHIND Q7 2H 6 days #4 ea 12/12/19 transdermal patch (Transderm-Scop) amoxicillin 500 mg tablet 500 mg PO ONCE 1 day #4 tabs 01/20/20 cyclobenzaprine 5 mg tablet 5 mg PO TID PRN pain 7 day s #21 08/04/24 tabs Allergies Allergy/AdvReac Type Severity Reaction Status Date / Time skin prep Allergy Hives Uncoded 08/04/24 06:39 Review of Systems Constitutional: Constitutional: Reports no additional constitutional complaints, Denies chills, Denies fever(s) and Denies night sweats Eyes: Eyes: Reports no additional eye complaints, Denies blurry vision, Denies change in vision, Denies diplopia, Denies eye discharge, Denies loss of vision and Denies eye pain ENT: Denies dizziness Comments: left sided neck pain Cardiovascular: Cardiovascular: Reports no additional cardiovascular complaints, Denies chest pain, Denies lightheadedness, Denies Loss of Consciousness and Denies dyspnea Respiratory: Respiratory: Reports no additional respiratory complaints and Denies dyspnea Gastrointestinal: Gastrointestinal: Reports no additional gastrointestinal complaints, Denies abdominal pain, Denies melena, Denies hematochezia, Denies change in bowel habits and Denies change in stool character Genitourinary: Genitourinary: Denies hematuria, Denies urinary frequency, Denies dysuria, Denies urinary incontinence, Denies urinary hesitancy and Denies urinary urgency Musculoskeletal: Musculoskeletal: Reports no additional musculoskeletal complaints, Denies numbness and Denies tingling Neurologic: Denies dizziness, Denies loss of vision, Denies numbness and Denies tingling Psychiatric: Psychiatric: Reports no additional psychiatric complaints Endocrine: Endocrine: Reports no additional endocrine complaints Hematologic/Lymphatic: Hematologic/Lymphatic: Reports no additional hematologic/lymphatic complaints Allergic/Immunologic: Allergic/Immunologic: Reports no additional allergic/immunologic complaints PMFSH Past Medical History Attestation statement: The following information was validated with the patient. Source: old records reviewed and nursing notes reviewed Medical History Skin lesion of neck Osteoarthritis of left knee Glaucoma High cholesterol HTN (hypertension) Osteoarthritis of left knee Surgical History History of excision of lesion (~05/18/23) History of total knee arthroplasty Family History Family History Father No problems noted. Mother No problems noted. Sister Colon cancer Sister No problems noted. Brother No problems noted. Brother No problems noted. Son No problems noted. Daughter No problems noted. Social History Social History Are you a primary managed care liaison to a significant other at home: No Do you presently have visiting nurse or other home services: No Alcohol intake: never Comment: sleeping Smoked in Last 30 Days: No Second Hand Smoke Exposure: No Use of substances other than those prescribed or required for medical reasons: No Advance Directives: No Advance Directives Information Provided: Yes service: No Current occupational status: unemployed Physical Exam ED Vital Signs: Vital Signs - 24 hr 08/04/24 06:37 08/04/24 07:55 08/04/24 08:39 Temperature 98.4 F 98.3 F 98.3 F Pulse Rate 82 80 80 Respiratory Rate 18 15 15 Blood Pressure 158/70 H 151/81 H 151/81 H Pulse Oximetry 99 95 95 Oxygen Delivery Method Room Air Room Air Room Air BMI result Body Mass Index 27.3 Const General: cooperative, no acute distress, alert and awake Nutritional Appearance: well nourished Orientation/consciousness: patient oriented x3 HENMT Head: Yes normal to inspection and Yes atraumatic Ears: hearing grossly normal bilaterally and external ears normal General nose exam: Normal external nose present, no nasal discharge noted and no epistaxis Face and sinus: Yes normal facial exam, No abrasion and No laceration Mouth: Normal oral and palatal mucosa present, no drooling and no muffled voice Eyes General: appearance normal, both eyes and all related structures Periorbital: periorbital findings normal Eyelids: Yes eyelids normal Conjunctivae: conjunctivae normal Pupils: Equal, round and reactive pupils present EOM: EOMs intact bilaterally Neck Other: left sided paraspinal cervical muscle felt - tense. Neck: Yes normal visual inspection, Yes full ROM and Yes no lymphadenopathy Resp Effort & Inspection: normal respiratory effort and able to speak in complete sentences Neuro General: patient oriented x3, moves all extremities and CN's II-XI intact bilaterally Cranial nerves: Yes Equal, round and reactive pupils present Cognition (Neuro): normal cognition Extrem General: Yes normal to inspection, Yes full ROM and Yes capillary refill normal Psych Appearance: grossly normal Mental Status: mental status grossly normal Affect: normal affect Attitude: cooperative Thought process: Normal thought process present Thought content: Normal thought content present Insight: Good insight present (Psych) Medical Decision Making Medical Decision Making MDM Narrative: Patient is a 73 year old assigned female at with a history of HTN, glaucoma, and high cholesterol presenting to the emergency department today with left sided neck pain. Patient's physical exam showed evidence of a left sided paraspinal cervical muscle spasm. I explained my physical exam findings to the patient. I answered all questions asked by the patient. I stressed the importance of the patient taking her medication as directed (either prescribed or as the over the counter packaging recommends). I stressed the importance of the patient following up with her primary care provider. I stressed the importance of the patient returning to the emergency department immediately if her symptoms were to worsen or if she were to develop any dizziness, shortness of breath, difficulty breathing, chest pain, blurry vision, loss of vision, nausea, vomiting, abdominal pain, fever, chills, back pain, or any other complaints. Patient verbalized agreement and understanding with this treatment plan and discharge. Differential Diagnosis Differential Diagnoses: The differential diagnosis associated with the presentation includes Left sided cervical spasm Left sided neck pain Admission/Observation Consideration of admission/observation: Escalation of care including admission/observation considered Patient would have been admitted to the hospital had her clinical presentation warranted hospital admission. Tests considered The following testing was considered but not selected: I considered obtaining a CT of the c-spine, an EKG, CBC, CMP, and a troponin however, the patient's current clinical presentation did not warrant this. I discussed this with the patient who verbalized understanding and agreement. Prescription Management I considered prescription management with: Pain Medication (patient prescribed pain medication) Discharge Plan Discharge Clinical Impression: Cervical muscle pain Patient Disposition: Home, Self-Care Instructions: Acute Neck Pain (ED) Additional Instructions: Please be aware this medication can make you drowsy and has a half life (how long it lasts) of 16 hours. Follow up with your primary care provider. Return to the emergency department immediately if your symptoms worsen or if you develop any numbness, tingling, dizziness, shortness of breath, difficulty breathing, chest pain, blurry vision, loss of vision, nausea, vomiting, abdominal pain, fever, chills, back pain, or any other complaints. Please see the information below about our Patient Portal. If you are not yet enrolled in the [facility] Patient Portal, you will receive an enrollment email invitation following your visit to any [facility] setting. You may also self-enroll in the Patient Portal by visiting our website: [email or web address] The following information is required to access the Patient Portal: - Your [facility] Medical Record Number - Your personal home email address (must match what is in your electronic medical record, Registration staff can assist with this) - Name - Date of Capabilities of the Patient Portal: - Message some providers - View upcoming appointments - Access your health summary, medical history, and visit history - View current conditions and allergies - View procedure and lab results - View your medications, including guidelines, side effects, and precautions - Complete pre-appointment questionnaires requested by your provider - Ready summary reports of your office visits and procedures To access the Patient Portal Mobile [employer], follow these directions: - Search [employer] in the [employer] Store or [employer] Store - Download the Destiny - Search for [facility] - Enter your login/password Prescriptions: New cyclobenzaprine 5 mg tablet 5 mg PO TID PRN (Reason: pain) 7 Days Qty: 21 0RF No Action amoxicillin 500 mg tablet 500 mg PO ONCE 1 Days Qty: 4 3RF Rx Instructions: Take 4 tabs 1 hours prior to dental procedure valsartan-hydrochlorothiazide 80-12.5 mg tablet 1 tab PO DAILY Betoptic S 0.25 % Drops,Suspension 1 drp ophthalmic (eye) DAILY Rx Instructions: both eyes cholecalciferol (vitamin D3) [Vitamin D3] 25 mcg (1,000 unit) Capsule 25 mcg PO DAILY docusate sodium 100 mg Capsule 100 mg PO BID 30 Days Qty: 60 0RF scopolamine base [Transderm-Scop] 1 mg over 3 days Patch 3 Day 1.5 mg EAR-BEHIND Q72H 6 Days Qty: 4 0RF latanoprost 0.005 % drops 1 drp ophthalmic (eye) DAILY simvastatin 40 mg tablet 40 mg PO BEDTIME rosuvastatin 20 mg tablet 20 mg PO DAILY timolol maleate 0.5 % drops 1 drp ophthalmic (eye) DAILY ibuprofen 600 mg tablet 600 mg PO Q6H PRN Referrals: Ignacio Bray MD [Primary Care Provider, Medical] Stand Alone Forms: Work/School Release Interventions: ED Discharge Assessment Last Done: 08/04/24 08:39 Discharge Date/Time: 08/04/24 08:40 Print Language: Serbian
[2024-08-04 08:39] VITALS: BP 151/81; PULSE 80; RESP 15; TEMP 36.8; O2SAT 95
== END 2024-08-04 08:40 | disposition home or self-care (01) ==
PROVIDERS: Emergency Provider Emergency Medicine; PCP Internal Medicine
DX: S16.1XXA Strain of muscle, fascia and tendon at neck level, initial encounter (principal); X58.XXXA Exposure to other specified factors, initial encounter; Y93.9 Activity, unspecified; Y92.9 Unspecified place or not applicable; Y99.9 Unspecified external cause status; M54.2 Cervicalgia; I10 Essential (primary) hypertension; Z79.899 Other long term (current) drug therapy
CPT/HCPCS: 99283; 99284

== ENCOUNTER 2024-11-04 10:41 | Outpatient (REF) | payer MEDICARE, SELFPAY ==
[2024-11-04 11:29] LABS: Alanine Aminotransferase 21 U/L (0-31); Albumin Level 4.6 g/dL (3.5-5.0); Alkaline Phosphatase 71 U/L (39-117); Aspartate Amino Transferase 24 U/L (5-31); Cholesterol 197 mg/dL (<200); HDL Cholesterol 80 mg/dL (>40); Total Protein 7.5 g/dL (6.5-8.0); Triglycerides 105 mg/dL (<150)
--- OUTSIDE RECORDS SUMMARY | 2024-11-04 12:05 | XMS_ITS | Clinical Summary ---
Author Organization [facility] Address [address] [facility] [address] [place] [id number] Phone Care Team Providers [facility] Representative Name Role Phone Ignacio Bray MD Primary Care Provider Social History Tobacco Use Types Packs/Day Years Used Date Smoking Tobacco: Never Assessed Education Answer Date Recorded Are you interested in more education? Not on libertad e 06/03/2022 Are you concerned about learning? Not on file 06/03/2022 No 06/03/2022 No 06/03/2022 Digital Access Answer Date Recorded No 07/02/2022 No 07/02/2022 No 07/02/2022 Reliable internet access at home? Not on file 07/02/2022 Device with a working camera? Not on file Comments Unknown Sex and Gender Information Value Date Recorded Sex Assigned at Not on file Legal Sex Female 2:43 PM EDT Gender Identity Not on file Sexual Orientation Not on file Plan of Treatment Health Maintenance Due Date Last Done Comments LIPID PANEL 1950 DEPRESSION SCREENING 1962 SMOKING Hx and SMOKELESS TOBACCO SCREENING 12/10/1963 HEPATITIS C SCREENING 1968 MAMMOGRAM 1990 COLOGUARD 12/10/1995 COLONOSCOPY 12/10/1995 COLORECTAL CANCER SCREENING 12/10/1995 FIT TEST 12/10/1995 FOBT 12/10/1995 SIGMOIDOSCOPY 12/10/1995 VIRTUAL COLONOSCOPY 12/10/1995 PNEUMOCOCCAL VACCINES (50+ years) (1 of 1 - PCV) 2000 OSTEOPOROSIS SCREENING INITI AL (ONE-TIME) 12/10/2015 INFLUENZA VACCINE (#1) 2024 COVID-19 VACCINE ( - 2024-2 6 season) 2024 04/23/2020 RSV VACCINE (1 - 1-dose 75+ series) 2025 Adult Td,Tdap Booster 07/22/2027 07/21/2017 ZOSTER VACCINES Completed 07/13/2018, 03/04/2018 HEPATITIS A VACCINES Aged Out No long er eligible based on patient's age to complete this topic HIB VACCINES Aged Out No longer eligi ble based on patient's age to complete this topic MENINGOCOCCAL VACCINES (ACWY) Aged Out No longer eligible based on patient's age to complete this topic MENINGOCOCCAL VACCINES (B) Aged Out N o longer eligible based on patient's age to complete this topic Medical Devices Not on file Insurance MEDICARE REPLACEMENT [place] [id number] [place] [id number] * Guarantor: Audra Aponte Account Type Relation to Patient Date of Phone Billing Address Personal/Family Self [address] [place] [id number] [place] [address] MEDICARE REPLACEMENT * Guarantor: Audra Aponte Account Type Relation to Patient Date of Phone Billing Address Personal/Family Self [address] [place] [id number] [place] [address] MEDICARE REPLACEMENT * Guarantor: Audra Aponte Account Type Relation to Patient Date of Phone Billing Address Personal/Family Self [address] [place] [id number] [place] [address] MEDICARE REPLACEMENT * Guarantor: Audra Aponte Account Type Relation to Patient Date of Phone Billing Address Personal/Family Self [address] [place] [id number] [place] [address] [place] [id number] MEDICARE REPLACEMENT MEDICARE REPLACEMENT MEDICARE REPLACEMENT Care Teams Medical Center Representative Relationship Specialty Start Date End Date Ignacio Bray MD [address] [place] [address] [place] [address] PCP - General Internal Medicine 08/08/17 Additional Source Comments The information contained in this document represents components of the legal health record. It is not the complete legal health record.[facility]
--- OUTSIDE RECORDS SUMMARY | 2024-11-04 12:05 | XMS_ITS | Encounter Summary ---
Author Organization [facility] Address [address] [phone] Phone Care Team Providers Care Deputy General Counsel Name Role Phone Ignacio Bray MD Primary Care Provider Reason for Referral * Physical Therapy (Routine) - Closed Specialty Diagnoses / Procedures Referred By Jocelin khalil Referred To Contact Physical Therapy Diagnoses Encounter for rehabilitation System, Provider Not In, PhD [id number] [place] [id number] Phone: tel: Referral ID Status Reason Start Date Expiration Date Visits Re quested Visits Authorized [id number] Closed 09/11/2017 02/05/2018 30 30 Encounter Details Date Type Department Care Team (Latest Contact Info) Description 08/11/2017 Transcribe Orders [facility] [address] [place] [phone] Ignacio Bray MD [address] [place] [address] Dr CHRISTI[place]EN [address] [place] [phone] Encounter for rehabilitation (Primary Dx) Social History Tobacco Use Types Packs/Day Years Used Date Smoking Tobacco: Never Assessed Comments Unknown Sex and Gender Information Value Date Recorded Sex Assigned at Not on file Legal Sex Female 2:43 PM EDT Gender Identity Not on file Sexual Orientation Not on file documented as of this encounter Plan of Treatment Scheduled Referrals Name Type Priority Associated Diagnoses Orde r Schedule Ambulatory referral to [facility] Physical Therapy Outpatient Referral Routine Encounter for rehabilitation Ordered: 08/11/2017 documented as of this encounter Visit Diagnoses Diagnosis Encounter for rehabilitation- Primary documented in this encounter Care Teams Deputy General Counsel Relationship Specialty Start Date End Date Ignacio Bray MD [address] [place] [address] [place] [id number] PCP - General Internal Medicine 08/08/17 documented as of this encounter Additional Source Comments The information contained in this document represents components of the legal health record. It is not the complete legal health record.[facility]
[2024-11-04 12:33] LABS: Reflex LDLD? No
== END 2024-11-04 10:42 | disposition home or self-care (01) ==
LOC: HO.LNP 10:41
PROVIDERS: Visit Provider Internal Medicine
DX: E78.00 Pure hypercholesterolemia, unspecified (principal)
CPT/HCPCS: 80061; 80076